=== PATIENT | male | born 1955 | race Caucasian/White ===

== ENCOUNTER 2024-10-12 12:36 | Outpatient (AMB) | payer MEDICARE, BC, SELFPAY ==
--- NOTE | 2024-10-12 13:13 | A.OFFVIS_ITS ---
Intake Visit Reasons: BPH Intake Note: New Patient presents for initial visit for BPH Urology Medications: Oxybutynin Blood Thinner: none PVR: Analytics Specialist Required: No Accompanied by: Self / Same As Patient Allergies No Known Allergies Allergy (Verified 10/12/24 14:14) Medication List - Last Reconciled 10/12/24 by LAURIE Palomares atorvastatin 80 mg PO DAILY diltiazem HCl CD 120 mg PO DAILY fesoterodine ER 4 mg PO DAILY 30 days levothyroxine 200 mcg PO DAILY lisinopril 40 mg PO DAILY HPI Comments Details: Jairo is a very pleasant 69-year-old male patient of Dr. Himanshu Dent. He has a past medical history of atopic dermatitis, BPH, GERD, hypertension, mixed hyperlipidemia, and hypothyroidism. In discussion with the patient today he reports having followed up with [facility] and had underwent a Prostate Rezum procedure November of 2022 however feels this made his urinary issues worse. He reports he continues with urinary urgency, urinary frequency, episodes of urinary incontinence and nocturia up to 4 times per night. He discusses being put on oxybutynin however given his longstanding history of hemorrhoids he stopped taking oxybutynin as he felt this caused him constipation. He otherwise denies hematuria, dysuria, foul smelling urine, changes to urinary stream, flank pain, fever, and or chills. In review of patient's chart it appears PSA 07/22 2.2. We discussed obtaining retroperitoneal ultrasound for further assessment evaluation however patient reports he has had previous imaging. In review of previous medical records I was unable to find previous imaging. We discussed at length potential causes of lower urinary tract symptoms patient is experiencing. We discussed bladder triggers/irritants. We discussed in office cystoscopy versus urodynamics for further assessment evaluation. We discussed further treatment options and risks and benefits of these treatment options. He otherwise denies any other issues or concerns at this time. [facility] Medical History Acquired trigger finger Atopic dermatitis Benign prostate hyperplasia Gastroesophageal reflux Essential hypertension Mixed hyperlipidemia Hypothyroidism Multiple benign melanocytic nevi Adenomatous colon polyp Onychomycosis Review of Systems Const All systems reviewed & are unremarkable except as noted in HPI and below Physical Exam Const General: cooperative, healthy appearing, comfortable, no acute distress, well developed, alert and awake Orientation/consciousness: patient oriented x3 Limitations: no limitations HEENT Head: Yes normal to inspection, Yes normocephalic and Yes atraumatic Ears: hearing grossly normal bilaterally Eyes General: appearance normal, both eyes and all related structures Neck Neck: Yes normal visual inspection and Yes trachea midline Chest Chest palpation & inspection: normal inspection of the chest Resp Effort & Inspection: normal respiratory effort and able to speak in complete sentences Cardio Rate: regular rate GI Inspection: Yes normal to inspection General: Yes no CVA tenderness Back/Spine/Pelvis Back: no CVA tenderness Skin General skin exam: no rashes or lesions noted Neuro General: patient oriented x3 Extrem General: Yes normal to inspection Psych Appearance: grossly normal and well kempt Mental Status: mental status grossly normal Speech and movement: Normal speech and movement present and Clear speech present Affect: normal affect Attitude: cooperative Thought process: Normal thought process present Thought content: Normal thought content present Insight: Fair insight present (Psych) Judgement: Fair judgement present (Psych) Office Procedures Post Void Residual Post Residual Void Post Void Residual (PVR): 36 [id number] Void Residual by ultrasound Results AMB Urinalysis, Automated UA Leukoctes 0 Pippa/uL Last Edit by Jenniffer Yanez on 10/12/24 13:53 UA Nitrite Last Edit by Jenniffer Yanez on 10/12/24 13:53 UA Urobilinogen 0.2 mg/dL Last Edit by Jenniffer Yanez on 10/12/24 13:53 UA Protein 0 mg/dL Last Edit by Jenniffer Yanez on 10/12/24 13:53 UA pH 6.0 Last Edit by Jenniffer Yanez on 10/12/24 13:53 UA Blood 0 Darwin/uL Last Edit by Jenniffer Yanez on 10/12/24 13:53 UA Specific Perkins 1.020 Last Edit by Jenniffer Yanez on 10/12/24 13:53 UA Ketone Last Edit by Jenniffer Yanez on 10/12/24 13:53 UA Bilirubin 0 mg/dL Last Edit by Jenniffer Yanez on 10/12/24 13:53 UA Glucose 0 mg/dL Last Edit by Jenniffer Yanez on 10/12/24 13:53 Results Reviewed Results Reviewed: Laboratory Last Values Urine pH (Auto) 6.0 10/12/24 13:51 Specific Perkins (Auto) 1.020 10/12/24 13:51 Urine Protein (Auto) 0 mg/dL 10/12/24 13:51 Glucose (UA)(Auto) 0 mg/dL 10/12/24 13:51 Urine Blood (Auto) 0 Darwin/uL 10/12/24 13:51 Urine Bilirubin (Auto) 0 mg/dL 10/12/24 13:51 Urine Urobilinogen (Auto) 0.2 mg/dL 10/12/24 13:51 Leukocyte Esterase (Auto) 0 Pippa/uL 10/12/24 13:51 Assessment & Plan Assessment & Plan (1) Lower urinary tract symptoms: Code(s): R39.9 - Unspecified symptoms and signs involving the genitourinary system Category: Medical (2) Urinary urgency: Code(s): R39.15 - Urgency of urination Category: Medical (3) Urinary frequency: Code(s): R35.0 - Frequency of micturition Category: Medical (4) Mixed stress and urge urinary incontinence: Code(s): N39.46 - Mixed incontinence Category: Medical Plan In office urinalysis results reviewed with the patient today; as noted above. PVR 0 mL. Start Fesoterodine as discussed and prescribed. Stop oxybutynin. We discussed at length potential causes of lower urinary tract symptoms patient is experiencing. We discussed importance of limiting fluids 2-3 hours prior to bed to decrease episodes of nocturia. Will schedule for next available in office cystoscopy for further assessment evaluation; or sooner with any issues, concerns, and or questions. 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 All questions were answered. Physical exam, labs, and imaging were discussed and reviewed in detail. As well as risks, benefits, and discussion of treatment choices. No major barriers to understanding were identified. The patient expressed understanding and agreement with the above treatment plan. The patient was made aware they should contact our office by phone for worsening of their current condition, the appearance of new symptoms, or with any questions or concerns. Compliance is encouraged with any medications and follow up testing that is ordered. It is a privilege to be allowed the opportunity to participate in? your urological care.? Again, if you have any questions or concerns If you have any questions or concerns please do not hesitate to contact me. The office is [phone]. This note is constructed using voice recognition software. While every effort has been made to ensure accuracy tdp displays analyst errors may have been included. Yours sincerely, LAURIE Palomares Coding Level of Care Code New Pt Level 4 (98915) Diagnoses Lower urinary tract symptoms R39.9 Urinary urgency R39.15 Urinary frequency R35.0 Mixed stress and urge urinary incontinence N39.46 CPT Codes Post Residual Void - PVR CPT Code: 48189-Qjpm Void Residual by ultrasound ([id number])
== END 2024-10-12 13:54 | disposition home or self-care (01) ==
PROVIDERS: PCP Family Medicine; Visit Provider Nurse Practitioner Family
DX: R39.9 Unspecified symptoms and signs involving the genitourinary system (principal); R35.0 Frequency of micturition; N39.46 Mixed incontinence
CPT/HCPCS: 99204

== ENCOUNTER → 2024-10-12 12:36 | Outpatient (BNVA) | payer MEDICARE, BC, SELFPAY | PROVIDERS: PCP Family Medicine; Visit Provider Nurse Practitioner Family | DX: N40.1 Benign prostatic hyperplasia with lower urinary tract symptoms (principal); R35.0 Frequency of micturition; N39.46 Mixed incontinence; N30.40 Irradiation cystitis without hematuria | CPT/HCPCS: 51798; 81003; 99202 ==

== ENCOUNTER 2024-12-14 10:46 | Outpatient (AMB) | payer MEDICARE, BC, SELFPAY ==
--- NOTE | 2024-12-14 10:48 | MHC.OFFVIS ---
Intake Visit Reasons: Cysto(Luts) Intake Note: Patient is present for Cystoscopy Urology Medication:FESOTERODINE Antibiotic Allergy:NONE Blood Thinner:NONE Lot:[id number] Exp:10/02/27 Affiliate Manager Required: No Allergies No Known Allergies Allergy (Verified 12/14/24 10:48) HPI Comments Details: Jairo is a pleasant male. He is a patient of Dr. Downs. 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 Has failed 2 medications. Trial of gemtessa 2 month follow-up Lower urinary tract symptoms Primary issue is urinary urgency and frequency Nocturia x4 with disrupted sleep Previously been treated with oxybutynin but cause constipation and prior history of hemorrhoids Trial of Toviaz with constipation Previous procedure includes Rezum 12/21 [facility] Medical History Acquired trigger finger Atopic dermatitis Benign prostate hyperplasia Gastroesophageal reflux Essential hypertension Mixed hyperlipidemia Hypothyroidism Multiple benign melanocytic nevi Adenomatous colon polyp Onychomycosis Review of Systems Const Denies chills and Denies fever(s) Card Reports no additional complaints and Denies syncope Resp Denies cough GI Denies abdominal pain and Denies heartburn Reports as per HPI and Denies change in libido Neuro Denies syncope Psych Denies change in libido Endo Denies change in libido Physical Exam Const General: cooperative, healthy appearing, comfortable and no acute distress Orientation/consciousness: patient oriented x3 HEENT Face and sinus: Yes normal facial exam Mouth: moist mucous membranes Neck Neck: Yes normal visual inspection, Yes full ROM and Yes trachea midline Chest Chest palpation & inspection: normal inspection of the chest Resp Effort & Inspection: normal respiratory effort, able to speak in complete sentences and no respiratory distress GI Inspection: Yes normal to inspection Back/Spine/Pelvis Cervical Spine: normal cervical lordosis Thoracic/Lumbar Spine: thoracic and lumbar spine normal to inspection Skin General skin exam: no rashes or lesions noted Neuro General: patient oriented x3, gait normal, tone normal and moves all extremities Extrem General: Yes normal to inspection and Yes capillary refill normal Office Procedures Cystoscopy Consent Discussed risk and benefit or proposed procedure with the patient. Information consent for procedure given to the patient. Discussed technical aspects, risks, benefits and alternatives in full. Addressed all of the patient's questions and concerns regarding the procedure. The patient demonstrated knowledge and understanding. They wish to proceed with this procedure. Preparation The patient was prepped in the usual manner. A conventions assistant was present and in the room. Genitalia was prepped with betadine solution in a sterile manner. Lidocaine Jelly 2% was placed into the urethra and 16Fr flexible Olympus cystoscope was inserted into the meatus after adequate lubrication. Procedure Cystoscopy performed using a disposable Urovue digital 16 Slovenian cystoscope. Meatus uncircumcised Urethra anterior and posterior urethra normal Prostatic Urethra partial TURP defect. Left lateral lobe impingement. Bladder examination with retroflexion of cystoscope Bladder Orifices normal shape and position Bladder Capacity median Trabeculations grade 1/2 Cellule Formation yes Diverticulum Formation posterior wall small Mucosal Erythema glomerulation Bladder Tumor - 19331-Hkckhphxil DISPOSABLE SCOPE URO-G FLEXIBLE SCOPE Procedure code (CPT) selection complete Office Meds lidocaine HCl 2 % mucosal jelly in applicator Performing Provider: Igor García MD Performing Location: [facility] Administered by: Igor García MD on 12/14/24 13:25 Dose Route Admin Location Dispensed Lot Number Expiration Date [employer] Faculty Member 10 mL intra-urethral 10 mL nitrofurantoin monohydrate/macrocrystals 100 mg capsule Performing Provider: Igor García MD Performing Location: [facility] Administered by: Igor García MD on 12/14/24 13:25 Dose Route Admin Location Dispensed Lot Number Expiration Date [employer] Faculty Member 100 mg PO 1 cap Results AMB Urinalysis, Automated UA Leukoctes 0 Pippa/uL Last Edit by SHARAD Cage on 12/14/24 11:09 UA Nitrite Negative Last Edit by SHARAD Cage on 12/14/24 11:09 UA Urobilinogen 0.2 mg/dL Last Edit by SHARAD Cage on 12/14/24 11:09 UA Protein 0 mg/dL Last Edit by SHARAD Cage on 12/14/24 11:09 UA pH 6.5 Last Edit by SHARAD Cage on 12/14/24 11:09 UA Blood 0 Darwin/uL Last Edit by SHARAD Cage on 12/14/24 11:09 UA Specific [place] 1.010 Last Edit by SHARAD Cage on 12/14/24 11:09 UA Ketone Negative Last Edit by SHARAD Cage on 12/14/24 11:09 UA Bilirubin 0 mg/dL Last Edit by SHARAD Cage on 12/14/24 11:09 UA Glucose 0 mg/dL Last Edit by SHARAD Cage on 12/14/24 11:09 Results Reviewed Results Reviewed: Laboratory Last Values Urine pH (Auto) 6.5 12/14/24 11:09 Specific [place] (Auto) 1.010 12/14/24 11:09 Urine Protein (Auto) 0 mg/dL 12/14/24 11:09 Glucose (UA)(Auto) 0 mg/dL 12/14/24 11:09 Urine Ketones (Auto) Negative 12/14/24 11:09 Urine Blood (Auto) 0 Darwin/uL 12/14/24 11:09 Urine Nitrite (Auto) Negative 12/14/24 11:09 Urine Bilirubin (Auto) 0 mg/dL 12/14/24 11:09 Urine Urobilinogen (Auto) 0.2 mg/dL 12/14/24 11:09 Leukocyte Esterase (Auto) 0 Pippa/uL 12/14/24 11:09 Assessment & Plan Assessment & Plan (1) Overactive bladder: Code(s): N32.81 - Overactive bladder Category: Medical Plan 2 month follow-up Celsa Vines Dr. Information provided Orders: Orders AMB Urinalysis Automated Today Z13.9 - Encounter for screening, unspecified AMB Cystoscopy Today R35.0 - Frequency of micturition Medications: New lidocaine HCl 2% 10 mL intra-urethral ONCE 10 mL 0RF R35.0 - Frequency of micturition vibegron 75 mg PO DAILY 30 days 30 tabs 1RF R35.0 - Frequency of micturition nitrofurantoin monohyd/m-cryst 100 mg 100 mg PO ONCE 1 cap 0RF R35.0 - Frequency of micturition Patient Instructions: Imaging studies, laboratory and physical exam results were discussed and reviewed in detail. No major barriers to patient understanding were identified. An opportunity to ask questions regarding the treatment plan was provided. All questions were answered. The patient expressed understanding and agreement with the above treatment plan. The patient is aware they should contact our office by phone for worsening of their current condition or the appearance of new urologic symptoms. Compliance is encouraged with any medications and followup testing that is ordered. It is a privilege to participate in the urologic care of your patient. If you have any questions or concerns regarding treatment for the above conditions, or other urologic issues, please do not hesitate to contact me. The office telephone contact is [phone]. This note is constructed using voice recognition software. While every effort has been made to ensure accuracy chief specialist leed errors may have been included. Yours sincerely, Dr Igor García MD, [facility] - Urology Providers of Expert, Compassionate Care for the Genitourinary System Coding Level of Care Code Est Pt Level 4 (32116) Diagnoses Overactive bladder N32.81 CPT Codes Cystoscopy - CPT: 36658-Yzieknasso ([id number])
--- OUTSIDE RECORDS SUMMARY | 2024-12-14 13:13 | XMS_ITS | Continuity of Care Document ---
Author Organization [facility], [place]oscopy, [facility] [place] [address] [place] [address] Assessment No assessment recorded. Plan of Treatment Reminders Order Date Submit Date Provider Last Modified By Organization Details Last Modified Time Details Appointments LAB Follow-Up 2024 07:00A [facility] Lab Not available Not available Not available Medical Managemen t 15 2024 09:00A M Meri Bond MD Not available Not available Not available LAB Follow-Up 2024 07:00A [facility] Lab Not available Not available Not available Wellness Visit 30 2024 08:30A M Meri Bond MD Not available Not available Not available Lab None recorded. Referral None recorded. Procedures None recorded. Surgeries None recorded. Imaging None recorded. Medication Orders None recorded. Patient TargetsNo targets recorded. Patient InstructionsNo instructions recorded. Reason for Referral None Reported. Procedures Surgical History Date Name Laterality Status Provider Name and Address Organization Details Recorded Time 5 Dolly - EGD completed Lenin Ablerto MD [address] [place] [address], [phone], [facility] [place]/12/2024 08:09:14 4 Dolly - Colonoscopy completed Lenin Alberto MD [address] [place] [address], [phone], [facility] [place] 06/05/2024 09:18:33 Imaging Results None recorded. Procedure Notes None recorded. Medical Equipment None Reported. Allergies No known drug allergies Medications Name Sig Start Date Stop Date Status Note LastModified by Organization Details LastModified Time diltiazem 30 mg tablet Take 1 tablet 3 times a day by oral route. active Not Available Not Available No t Available atorvastatin active Not Available Not Available Not Available aspirin active Not Available Not Avail able Not Available levothyroxine active Not Available Not Available Not Available simvastatin active Not Available Not A vailable Not Available lisinopril active Not Available Not Av ailable Not Available Vitals None Recorded Social History None recorded. Functional Status None recorded. Mental Status None recorded. Family History Nothing Reported. Medical History No medical history recorded. Past Encounters Encounter ID Performer Location Encounter Start Date Encounter Closed Date Diagnosis/Indication Diagnosis SNOMED-CT Code Diagnosis ICD10 Code Diagnosis Note [id number] Katherine Powers RN Endoscopy , [address] [phone] 12/12/2024 06:38:43 12/12/2024 12:00:45 Health Concerns Section Related Observation LastModified by Organization Detai ls LastModified Time None Recorded Concern Status LastModified by Organization Details LastModified Time None Recorded Payers Encounter Date Sequence Insurance Name Policy Number Policy Joyner Covered Member ID Joyner Member ID Guarantor Name 12/12/2024 2 [place] [employer] Selene Robertson [id number] Jairo Robertson 12/12/2024 1 [place] [employer] Jairo Robertson [id number] Jairo Robertson
--- OUTSIDE RECORDS SUMMARY | 2024-12-14 13:13 | XMS_ITS | Data Portability ---
Author Organization [facility], [facility] Address [address] [place] [address] Care Team Providers Care Banana Carrier Name Role Phone NEDRA CARLSON Primary Care Provider DONNELL PIERCE Urologist Assessment Encounter Date Assessment Date Assessment LastModified by Organization Details LastModified Time 08/19/2023 08/19/2023 We completed your Medicare Wellness exam today. This was an opportunity to assess your overall well being including your ability to care for yourself, your mobility, memory, mental health, as well as your safety. With advancing age, it is important to assign someone in your life as your Health Care Proxy (HCP). This person should know what is important to you and what your wishes are for medical procedures if you cannot communicate your wishes yourself (severe illness, unconsciousness ). We discussed having a completed Health Care Proxy form today. In addition, today we started a conversation about your End of Life wishes. These conversations will continue over the years. Please consider reading the book, Being Mortal by Andrzej West to help frame future conversations. We discussed the purpose of a MOLST form (Medical Orders for Life Sustaining Treatment) and completed this form if appropriate per your wishes. Vision and Hearing are senses that are critically important as we age. When impaired, they can contribute to memory loss, falls, and make it harder to drive, talk to family and friends, and engage in the world. Please get your vision checked yearly and your hearing checked when you start to notice hearing loss. We discussed approaches to lowering your risk of heart disease and stroke . Your blood pressure . Your cholesterol . We discussed cancer screening you may need as well as vaccines to prevent infections. Colon Cancer : Your risk of colon cancer is . Due for colorectal screening:.. if you are not planning to have a colonoscopy please screen with stool cards yearly. Prostate Cancer : PSA testing for ages 55-69 risks and benefits discussed . Aortic Aneurysm Screening : is indicated if you have a history of smoking and is due once at age 65. Influenza Vaccine : Flu shot yearly. Tetanus Vaccine : Every 10 years. Due: . The following vaccines are available from your pharmacy: Pneumonia Vaccine : PCV20: once after age 65. Shingles Vaccine : 2 shots after age 50. Covid Vaccine : Make sure you have received the most up to date covid vaccine. Your personal health goal for the year is: [email or web address] Not available 08/19/2023 10:13:12 08/21/2024 08/21/2024 We completed your Medicare Wellness exam today. This was an opportunity to assess your overall well being including your ability to care for yourself, your mobility, memory, mental health, as well as your safety. With advancing age, it is important to assign someone in your life as your Health Care Proxy (HCP). This person should know what is important to you and what your wishes are for medical procedures if you cannot communicate your wishes yourself (severe illness, unconsciousness ). We discussed having a completed Health Care Proxy form today. In addition, today we started a conversation about your End of Life wishes. These conversations will continue over the years. Please consider reading the book, Being Mortal by Andrzej West to help frame future conversations. We discussed the purpose of a MOLST form (Medical Orders for Life Sustaining Treatment) and completed this form if appropriate per your wishes. Vision and Hearing are senses that are critically important as we age. When impaired, they can contribute to memory loss, falls, and make it harder to drive, talk to family and friends, and engage in the world. Please get your vision checked yearly and your hearing checked when you start to notice hearing loss. We discussed approaches to lowering your risk of heart disease and stroke . Your blood pressure is at goal. Your cholesterol is at goal. We discussed cancer screening you may need as well as vaccines to prevent infections. Colon Cancer : Your risk of colon cancer is higher than average due to personal history of colon polyps. Due for colorectal screenin. If you are not planning to have a colonoscopy please screen with stool cards yearly. Breast Cancer : Breast Cancer Screening (mammography). Next mammogram due: . Cervical Cancer Screening (pap test). Next pap due: . Prostate Cancer : PSA testing for ages 55-69 risks and benefits discussed test ordered. By urology Influenza Vaccine : Flu shot yearly. Tetanus Vaccine : Every 10 years. Due: 2028. The following vaccines are available from your pharmacy: Pneumonia Vaccine : PCV20: once after age 65. Shingles Vaccine : 2 shots after age 50. Covid Vaccine : Make sure you have received the most up to date covid vaccine. Your personal health goal for the year is: [email or web address] Not available 08/21/2024 20:05:57 Plan of Treatment Reminders Order Date Submit Date Provider Last Modified By Organization Details Last Modified Time Details Appointments LAB Follow-Up 2024 07:00A M [facility] Lab Not available Not available Not available Medical Managemen t 15 2024 09:00A M Meri Bond MD Not available Not available Not available LAB Follow-Up 2024 07:00A M [facility] Lab Not available Not available Not available Wellness Visit 30 2024 08:30A M Meri Bond MD Not available Not available Not available Lab BMP, serum or plasma 2021 023 [facility], [address] [place] [address], [id number], 04/07/2023 15:05:04 lipid panel, serum 2021 023 [facility], [address] [place] [address], [id number], 04/07/2023 15:05:05 TSH, serum or plasma 2021 023 [facility], [address] [place] [address], [id number], 04/07/2023 11:11:19 BMP, serum or plasma 2023 024 [facility], [address] [place] [address], [id number], 01/03/2024 12:12:45 Referral gastroent erologist referral - esophagea l obstructi on due to food impaction in May continues to have issues but not to this extent, persisten t x many years. 2023 024 AMAURY Ward MD Gastro, [address] [place], [id number], 10/25/2024 14:23:23 urologist referral - BPH did aquablati on and still with symptoms 2023 024 AMAURY García MD, [address] [place] [address] , [address], [id number], 10/15/2024 23:58:41 Procedures None recorded. Surgeries None recorded. Imaging None recorded. Medication Orders None recorded. Patient TargetsNo targets recorded. Patient Instructions Encounter Date Encounter Id Patient Instructions Last Modified By Organization Details Last Modified Time 11/16/2022 [id number] -Med management with fasting labs in March -Wellness visit in July when you return Not available 11/16/2022 08:40:02 08/19/2023 [id number] preventing falls: care instructions [email or web address] Not available 08/19/2023 15:59:18 hearing loss: care instructions [email or web address] Not available 08/19/2023 15:59:18 advance directives: care instructions [email or web address] Not available 08/19/2023 15:59:19 well visit, over 65: care instructions [email or web address] Not available 08/19/2023 15:59:18 After a discussion of treatment and medication options, which included consideration of the best practices in medicine, a medical plan was provided. The patient's opinions and concerns were included in this treatment plan and goal. After a discussion of treatment and medication options, which included consideration of the best practices in medicine, a medical plan was provided. The patient's opinions and concerns were included in this treatment plan and goal. 1. TSH - in range with 200 mcg dose levothyroxine, will continue this dose * Maintain 1200 mg of calcium from food sources daily, * Take vitamin D 1358-5134 units daily to help absorption of calcium into your bones * Use sunblock consistently * Review the website: [employer] to get more information on the Mediterranean diet - a heart healthy eating plan * Immunizations up to date; COVID vaccine booster recommended. Prevnar 20 at the pharmacy. * The current guidelines from the [place] [employer] is moderate aerobic physical activity about 30 minutes for 5 days of the week. Walking at a moderately fast pace, as tolerated. Try to build muscle mass. This will help maintain bone strength and support your joints. * Pt has a hx of precancerous polyps and needs repeat colonoscopy every 5 years. Colonoscopy due 2025. * Health care proxy discussed and no changes. * MOLST form discussed. completed today. * Wellness Visit in 1 year with LS * See your dentist at least twice a year. * Get your vision checked at least once every 2 years. * Discussed labs * derm yearly - [facility] HTN - at goal of less than 130/80 per the AHA guidelines. Continue meds and f/u in 6 mos and see LS - PCP. Discussed labs, sugar and kidney function and electrolytes normal. Discussed cholesterol. Your LDL (bad type of cholesterol) is at goal. Continue your cholesterol lowering medication daily. Continue low salt diet of less than 1500 mg of sodium per day. The [place] [employer] (AHA) recommends 30 minutes of moderate physical activity 5 days a week. A Mediterranean type of diet and a plant based diet is recommended, review the website: [employer]. [email or web address] Not available 08/19/2023 19:38:55 01/03/2024 [id number] After a discussion of treatment and medication options, which included consideration of the best practices in medicine, a medical plan was provided. The patient's opinions and concerns were included in this treatment plan and goal. HTN - at goal of less than 130/80 per the AHA guidelines. Continue meds and f/u in 6 mos. Due for labs today. Continue low salt diet of less than 1500 mg of sodium per day. The [place] [employer] (AHA) recommends 30 minutes of moderate physical activity 5 days a week. A Mediterranean type of diet and a plant based diet is recommended, review the website: [employer]. 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 melo Not available 08/21/2024 14:17:54 Reason for Referral Urologist Referral for Benig n prostatic hyperplasia BPH did aquablation and still with symptoms Referring Physician: Meri Bond, Family Medicine, Encounter Date: 08/21/2024 Line Erector Apprentice Referral for Esophageal dysphagia esophageal obstruction due to food impaction in May continues to have issues but not to this extent, persistent x many years. Referring Physician: Mrei Bond, Family Medicine, Encounter Date: 08/21/2024 Results Created Date Observation Date Name Description Value Unit Range Abnormal Flag Note LastModifiedBy Organization Detail LastModifiedTime 11/02/20 22 11/02/2022 LIPID PANEL cholesterol 210 mg/dL <200 mg/dl Pawan able 200-2 39 mg/dl Borde rline High >240 mg/dl High Not Available [address], [address], 11/02/2022 14:23:21 11/02/20 22 11/02/2022 LIPID PANEL triglyceride s 125 mg/dL <150 mg/dL Vivien l 150-1 99 mg/dL Borde rline High 200-4 99 mg/dL High >500 mg/dL Very High Not Available [address], [address], 11/02/2022 14:23:21 11/02/20 22 11/02/2022 LIPID PANEL direct HDL 66 mg/dL <40 mg/dl - Major Risk for CHD >60 mg/dl - Negat adelita Risk for CHD Not Available [address], [address], 11/02/2022 14:23:21 11/02/20 22 11/02/2022 LDL - CALCU LATED LDL - calculated 119.0 RISK CATEG ORY LDL GOAL _ CHD or CHD Risk Equiv alent s <100 mg/dl (10-y ear risk >20%) 2+ Risk Facto rs <130 mg/dl (10-y ear risk <= 20%) 0-1 Risk Facto r??? <160 mg/dl ??? Almos t all peopl e with 0-1 risk facto r have a 10 year risk <10%, thus 10 year risk asses ment in peopl e with 0-1 risk facto r is not farrah lam. Not Available [address], [address], 11/02/2022 14:23:22 11/02/20 22 11/04/2022 BASIC METAB OLIC PANEL glucose 97 mg/dL 70-100 Not Available [address], [address], 11/04/2022 11:15:25 11/02/20 22 11/04/2022 BASIC METAB OLIC PANEL BUN 24 mg/dL 7-18 high Not Available [address], [address], 11/04/2022 11:15:25 11/02/20 22 11/04/2022 BASIC METAB OLIC PANEL creatinine 1.0 mg/dL 0.8-1. 3 Not Available [address], [address], 11/04/2022 11:15:25 11/02/20 22 11/04/2022 BASIC METAB OLIC PANEL B/C 24.0 ratio Not Available [address], [address], 11/04/2022 11:15:25 11/02/20 22 11/04/2022 BASIC METAB OLIC PANEL GFR >=60ML /MIN mL/mi n normal >=60m L/min - Vivien l or midly reduc ed <60mL /min- Decre ased kidne y funct ion <15mL /min - Kidne y failu re [facility] calcu lates estim ated Glome rular Filtr ation Rate (eGFR ) using the Chron ic Kidne y Disea se Epide miolo gy Colla borat ion (CKD- EPI) Equat ion (Chano r et. al 2020) as recom mike d by the Natio nal Kidne y Found ation . eGFR is based on age, serum creat inine , and sex. CKD-E PI does not calcu late eGFR by race, does not apply to child kenny (age <18 years ), and shoul d not be used in pregn alix. Not Available [address], [address], 11/04/2022 11:15:25 11/02/20 22 11/04/2022 BASIC METAB OLIC PANEL sodium 144 mmol/ L 136-14 5 Not Available [address], [address], 11/04/2022 11:15:25 11/02/20 22 11/04/2022 BASIC METAB OLIC PANEL potassium 4.4 mmol/ L 3.5-5. 1 Not Available [address], [address], 11/04/2022 11:15:25 11/02/20 22 11/04/2022 BASIC METAB OLIC PANEL chloride 104 mmol/ L 96-107 Not Available [address], [address], 11/04/2022 11:15:25 11/02/20 22 11/04/2022 BASIC METAB OLIC PANEL anion gap 11.0 5.0-15 .0 Not Available [address], [address], 11/04/2022 11:15:25 11/02/20 22 11/04/2022 BASIC METAB OLIC PANEL CO2 29 mmol/ L 21-32 Not Available [address], [address], 11/04/2022 11:15:25 11/02/20 22 11/04/2022 BASIC METAB OLIC PANEL calcium 9.4 mg/dL 8.5-10 .3 Not Available [facility] [address] [facility], [place], [address], 11/04/2022 11:15:25 11/30/19 23 11/30/2022 POCT URINE DIPST ICK color Yellow Not Available [facility] [address] [place], [address], 11/30/2022 10:10:43 11/30/19 23 11/30/2022 POCT URINE DIPST ICK turbidity Clear Not Available [facility] [address] [place], [address], 11/30/2022 10:10:43 11/30/19 23 11/30/2022 POCT URINE DIPST ICK glucose, poct Trace negati ve abnormal Not Available [facility] [address] [place], [address], 11/30/2022 10:10:43 11/30/19 23 11/30/2022 POCT URINE DIPST ICK ketone, poct Negati ve negati ve Not Available [facility] [address] [place], [address], 11/30/2022 10:10:43 11/30/19 23 11/30/2022 POCT URINE DIPST ICK occult blood, poct Trace Intact negati ve abnormal Not Available [facility] [address] [place], [address], 11/30/2022 10:10:43 11/30/19 23 11/30/2022 POCT URINE DIPST ICK specific gravity, poct 1.020 1.001- 1.030 Not Available [facility] [address] [place], [address], 11/30/2022 10:10:43 11/30/19 23 11/30/2022 POCT URINE DIPST ICK albumin, poct 1+ negati ve abnormal Not Available [facility] [address] [place], [address], 11/30/2022 10:10:43 11/30/19 23 11/30/2022 POCT URINE DIPST ICK bili Negati ve negati ve Not Available [facility] [address] [place], [address], 11/30/2022 10:10:43 11/30/19 23 11/30/2022 POCT URINE DIPST ICK urobilinogen 1.0 <1.0 high Not Available [facility] [address] [place], [address], 11/30/2022 10:10:43 11/30/19 23 11/30/2022 POCT URINE DIPST ICK nitrite, poct Positi ve negati ve abnormal Not Available [facility] [address] [place], [address], 11/30/2022 10:10:43 11/30/19 23 11/30/2022 POCT URINE DIPST ICK pH, poct 7.5 5.0-8. 0 Not Available [facility] [address] [place], [address], 11/30/2022 10:10:43 11/30/19 23 11/30/2022 POCT URINE DIPST ICK WBC screen, poct Trace negati ve abnormal Not Available [facility] [address] [place], [address], 11/30/2022 10:10:43 11/30/19 23 11/30/2022 URINE CULTU RE special requests None Not Available [facility] [address] [place], [address], 12/02/2022 07:41:31 11/30/19 23 12/02/2022 URINE CULTU RE urine culture NO GROWTH 48HRS Not Available [facility] [address] [place], [address], 12/02/2022 07:41:31 04/07/20 23 04/07/2023 TSH TSH 0.17 uIU/m L 0.50-6 .00 low The Ameri can Colle ge of Endoc rinol ogy and Ameri can Thyro id Assoc iatio n recom mend goal TSH value s betwe en 0.4-4 .0 mIU/m L. Not Available [address], [address], 04/07/2023 11:11:19 04/07/2004/07/2023 BASIC METAB OLIC PANEL glucose 101 mg/dL 70-100 high Not Available [address], [address], 04/07/2023 15:05:04 04/07/20 23 04/07/2023 BASIC METAB OLIC PANEL BUN 26 mg/dL 7-18 high Not Available [address], [address], 04/07/2023 15:05:04 04/07/20 23 04/07/2023 BASIC METAB OLIC PANEL creatinine 0.9 mg/dL 0.8-1. 3 Not Available [address], [address], 04/07/2023 15:05:04 04/07/20 23 04/07/2023 BASIC METAB OLIC PANEL B/C 28.9 ratio Not Available [address], [address], 04/07/2023 15:05:04 04/07/20 23 04/07/2023 BASIC METAB OLIC PANEL GFR >=60ML /MIN mL/mi n normal >=60m L/min - Vivien l or midly reduc ed <60mL /min- Decre ased kidne y funct ion <15mL /min - Kidne y failu re [facility] calcu lates estim ated Glome rular Filtr ation Rate (eGFR ) using the Chron ic Kidne y Disea se Epide miolo gy Colla borat ion (CKD- EPI) Equat ion (Chano r et. al 2020) as recom mike d by the Natio nal Kidne y Found ation . eGFR is based on age, serum creat inine , and sex. CKD-E PI does not calcu late eGFR by race, does not apply to child kenny (age <18 years ), and shoul d not be used in pregn alix. Not Available [address], [address], 04/07/2023 15:05:04 04/07/20 23 04/07/2023 BASIC METAB OLIC PANEL sodium 144 mmol/ L 136-14 5 Not Available [address], [address], 04/07/2023 15:05:04 04/07/20 23 04/07/2023 BASIC METAB OLIC PANEL potassium 4.6 mmol/ L 3.5-5. 1 Not Available [address], [address], 04/07/2023 15:05:04 04/07/20 23 04/07/2023 BASIC METAB OLIC PANEL chloride 105 mmol/ L 96-107 Not Available [address], [address], 04/07/2023 15:05:04 04/07/20 23 04/07/2023 BASIC METAB OLIC PANEL anion gap 10.2 5.0-15 .0 Not Available [address], [address], 04/07/2023 15:05:04 04/07/20 23 04/07/2023 BASIC METAB OLIC PANEL CO2 29 mmol/ L 21-32 Not Available [address], [address], 04/07/2023 15:05:04 04/07/20 23 04/07/2023 BASIC METAB OLIC PANEL calcium 9.1 mg/dL 8.5-10 .3 Not Available [address], [address], 04/07/2023 15:05:04 04/07/20 23 04/07/2023 LIPID PANEL cholesterol 201 mg/dL <200 mg/dl Pawan able 200-2 39 mg/dl Borde rline High >240 mg/dl High Not Available [address], [address], 04/07/2023 15:05:05 04/07/20 23 04/07/2023 LIPID PANEL triglyceride s 92 mg/dL <150 mg/dL Vivien l 150-1 99 mg/dL Borde rline High 200-4 99 mg/dL High >500 mg/dL Very High Not Available [address], [address], 04/07/2023 15:05:05 04/07/20 23 04/07/2023 LIPID PANEL direct HDL 70 mg/dL <40 mg/dl - Major Risk for CHD >60 mg/dl - Negat adelita Risk for CHD Not Available [address], [address], 04/07/2023 15:05:05 04/07/20 23 04/07/2023 LDL - CALCU LATED LDL - calculated 112.6 RISK CATEG ORY LDL GOAL _ CHD or CHD Risk Equiv alent s <100 mg/dl (10-y ear risk >20%) 2+ Risk Facto rs <130 mg/dl (10-y ear risk <= 20%) 0-1 Risk Facto r??? <160 mg/dl ??? Almos t all peopl e with 0-1 risk facto r have a 10 year risk <10%, thus 10 year risk asses ment in peopl e with 0-1 risk facto r is not necritesh lam. Not Available [address], [address], 04/07/2023 15:05:06 04/29/20 23 04/29/2023 TSH TSH 0.18 uIU/m L 0.50-6 .00 low CWP=C onsis tent with previ ous. The Ameri can Colle ge of Endoc rinol ogy and Ameri can Thyro id Assoc iatio n recom mend goal TSH value s betwe en 0.4-4 .0 mIU/m L. Not Available [address], [address], 04/29/2023 11:41:28 06/29/20 23 06/30/2023 TSH TSH 0.51 uIU/m L 0.50-6 .00 The Ameri can Colle ge of Endoc rinol ogy and Ameri can Thyro id Assoc iatio n recom mend goal TSH value s betwe en 0.4-4 .0 mIU/m L. Not Available [address], [address], 06/30/2023 12:06:58 06/29/20 23 06/30/2023 PSA PSA 1.41 NG/mL 0.00-4 .00 Not Available [address], [address], 06/30/2023 12:50:02 07/01/20 23 07/01/2023 BASIC METAB OLIC PANEL glucose 89 mg/dL 70-100 Not Available [address], [address], 07/01/2023 10:47:34 07/01/20 23 07/01/2023 BASIC METAB OLIC PANEL BUN 27 mg/dL 7-18 high Not Available [address], [address], 07/01/2023 10:47:34 07/01/20 23 07/01/2023 BASIC METAB OLIC PANEL creatinine 0.9 mg/dL 0.8-1. 3 Not Available [address], [address], 07/01/2023 10:47:34 07/01/20 23 07/01/2023 BASIC METAB OLIC PANEL B/C 30.0 ratio Not Available [address], [address], 07/01/2023 10:47:34 07/01/20 23 07/01/2023 BASIC METAB OLIC PANEL GFR >=60ML /MIN mL/mi n normal >=60m L/min - Vivien l or midly reduc ed <60mL /min- Decre ased kidne y funct ion <15mL /min - Kidne y failu re [facility] calcu lates estim ated Glome rular Filtr ation Rate (eGFR ) using the Chron ic Kidne y Disea se Epide miolo gy Colla borat ion (CKD- EPI) Equat ion (Chano r et. al 2020) as recom mike d by the Natio nal Kidne y Found ation . eGFR is based on age, serum creat inine , and sex. CKD-E PI does not calcu late eGFR by race, does not apply to child kenny (age <18 years ), and shoul d not be used in pregn alix. Not Available [address], [address], 07/01/2023 10:47:34 07/01/20 23 07/01/2023 BASIC METAB OLIC PANEL sodium 143 mmol/ L 136-14 5 Not Available [address], [address], 07/01/2023 10:47:34 07/01/20 23 07/01/2023 BASIC METAB OLIC PANEL potassium 4.5 mmol/ L 3.5-5. 1 Not Available [address], [address], 07/01/2023 10:47:34 08/03/07/01/2023 BASIC METAB OLIC PANEL chloride 106 mmol/ L 96-107 Not Available [address], [address], 07/01/2023 10:47:34 07/01/20 23 07/01/2023 BASIC METAB OLIC PANEL anion gap 6.0 5.0-15 .0 Not Available [address], [address], 07/01/2023 10:47:34 07/01/20 23 07/01/2023 BASIC METAB OLIC PANEL CO2 31 mmol/ L 21-32 Not Available [address], [address], 07/01/2023 10:47:34 07/01/20 23 07/01/2023 BASIC METAB OLIC PANEL calcium 9.1 mg/dL 8.5-10 .3 Not Available [address], [address], 07/01/2023 10:47:34 07/01/20 23 07/01/2023 LIPID PANEL cholesterol 229 mg/dL <200 mg/dl Pawan able 200-2 39 mg/dl Borde rline High >240 mg/dl High Not Available [address], [address], 07/01/2023 10:47:35 07/01/20 23 07/01/2023 LIPID PANEL triglyceride s 84 mg/dL <150 mg/dL Vivien l 150-1 99 mg/dL Borde rline High 200-4 99 mg/dL High >500 mg/dL Very High Not Available [address], [address], 07/01/2023 10:47:35 07/01/20 23 07/01/2023 LIPID PANEL direct HDL 71 mg/dL <40 mg/dl - Major Risk for CHD >60 mg/dl - Negat adelita Risk for CHD Not Available [address], [address], 07/01/2023 10:47:35 07/01/20 23 07/01/2023 DIREC T LDL direct LDL 123 mg/dL RISK CATEG ORY LDL GOAL _ CHD or CHD Risk Equiv alent s <100 mg/dl (10-y ear risk >20%) 2+ Risk Facto rs <130 mg/dl (10-y ear risk <= 20%) 0-1 Risk Facto r??? <160 mg/dl ??? Almos t all peopl e with 0-1 risk facto r have a 10 year risk <10%, thus 10 year risk asses ment in peopl e with 0-1 risk facto r is not farrah lam. Not Available [address], [address], 07/01/2023 10:47:36 01/03/20 24 01/03/2024 BASIC METAB OLIC PANEL glucose 69 mg/dL 70-100 low Not Available [address], [address], 01/03/2024 12:12:45 01/03/20 24 01/03/2024 BASIC METAB OLIC PANEL BUN 28 mg/dL 7-18 high Not Available [address], [address], 01/03/2024 12:12:45 01/03/20 24 01/03/2024 BASIC METAB OLIC PANEL creatinine 1.0 mg/dL 0.8-1. 3 Not Available [address], [address], 01/03/2024 12:12:45 01/03/20 24 01/03/2024 BASIC METAB OLIC PANEL B/C 28.0 ratio Not Available [address], [address], 01/03/2024 12:12:45 01/03/20 24 01/03/2024 BASIC METAB OLIC PANEL GFR >=60ML /MIN mL/mi n normal >=60m L/min - Vivien l or midly reduc ed <60mL /min- Decre ased kidne y funct ion <15mL /min - Kidne y failu re [facility] calcu lates estim ated Glome rular Filtr ation Rate (eGFR ) using the Chron ic Kidne y Disea se Epide miolo gy Colla borat ion (CKD- EPI) Equat ion (Chano r et. al 2020) as recom mike d by the Natio nal Kidne y Found ation . eGFR is based on age, serum creat inine , and sex. CKD-E PI does not calcu late eGFR by race, does not apply to child kenny (age <18 years ), and shoul d not be used in pregn alix. Not Available [address], [address], 01/03/2024 12:12:45 01/03/20 24 01/03/2024 BASIC METAB OLIC PANEL sodium 144 mmol/ L 136-14 5 Not Available [address], [address], 01/03/2024 12:12:45 01/03/20 24 01/03/2024 BASIC METAB OLIC PANEL potassium 4.4 mmol/ L 3.5-5. 1 Not Available [address], [address], 01/03/2024 12:12:45 01/03/20 24 01/03/2024 BASIC METAB OLIC PANEL chloride 106 mmol/ L 96-107 Not Available [address], [address], 01/03/2024 12:12:45 01/03/20 24 01/03/2024 BASIC METAB OLIC PANEL anion gap 9.2 5.0-15 .0 Not Available [address], [address], 01/03/2024 12:12:45 01/03/20 24 01/03/2024 BASIC METAB OLIC PANEL CO2 29 mmol/ L 21-32 Not Available [address], [address], 01/03/2024 12:12:45 01/03/20 24 01/03/2024 BASIC METAB OLIC PANEL calcium 9.0 mg/dL 8.5-10 .3 Not Available [address], [address], 01/03/2024 12:12:45 07/12/20 24 07/12/2024 BASIC METAB OLIC PANEL glucose 75 mg/dL 70-100 Not Available [address], [address], 07/12/2024 11:01:05 07/12/20 24 07/12/2024 BASIC METAB OLIC PANEL BUN 16 mg/dL 7-18 Not Available [address], [address], 07/12/2024 11:01:05 07/12/20 24 07/12/2024 BASIC METAB OLIC PANEL creatinine 0.9 mg/dL 0.8-1. 3 Not Available [address], [address], 07/12/2024 11:01:05 07/12/20 24 07/12/2024 BASIC METAB OLIC PANEL B/C 17.8 ratio Not Available [address], [address], 07/12/2024 11:01:05 07/12/20 24 07/12/2024 BASIC METAB OLIC PANEL GFR >=60ML /MIN mL/mi n normal >=60m L/min - Vivien l or midly reduc ed <60mL /min- Decre ased kidne y funct ion <15mL /min - Kidne y failu re [facility] calcu lates estim ated Glome rular Filtr ation Rate (eGFR ) using the Chron ic Kidne y Disea se Epide miolo gy Colla borat ion (CKD- EPI) Equat ion (Chano ceballos et. al 2020) as recom mike d by the [facility] . eGFR is based on age, serum creat inine , and sex. CKD-E PI does not calcu late eGFR by race, does not apply to child kenny (age <18 years ), and shoul d not be used in pregn alix. Not Available [address], [address], 07/12/2024 11:01:05 07/12/20 24 07/12/2024 BASIC METAB OLIC PANEL sodium 143 mmol/ L 136-14 5 Not Available [address], [address], 07/12/2024 11:01:05 07/12/20 24 07/12/2024 BASIC METAB OLIC PANEL potassium 4.5 mmol/ L 3.5-5. 1 Not Available [address], [address], 07/12/2024 11:01:05 07/12/20 24 07/12/2024 BASIC METAB OLIC PANEL chloride 104 mmol/ L 96-107 Not Available [address], [address], 07/12/2024 11:01:05 07/12/20 24 07/12/2024 BASIC METAB OLIC PANEL anion gap 8.2 5.0-15 .0 Not Available [address], [address], 07/12/2024 11:01:05 07/12/20 24 07/12/2024 BASIC METAB OLIC PANEL CO2 31 mmol/ L 21-32 Not Available [address], [address], 07/12/2024 11:01:05 07/12/20 24 07/12/2024 BASIC METAB OLIC PANEL calcium 9.6 mg/dL 8.5-10 .3 Not Available [address], [address], 07/12/2024 11:01:05 07/12/20 24 07/12/2024 LIPID PANEL cholesterol 214 mg/dL <200 mg/dl Pawan able 200-2 39 mg/dl Borde rline High >240 mg/dl High Not Available [address], [address], 07/12/2024 11:01:06 07/12/20 24 07/12/2024 LIPID PANEL triglyceride s 150 mg/dL <150 mg/dL Vivien l 150-1 99 mg/dL Borde rline High 200-4 99 mg/dL High >500 mg/dL Very High Not Available [address], [address], 07/12/2024 11:01:06 07/12/20 24 07/12/2024 LIPID PANEL direct HDL 62 mg/dL <40 mg/dl - Major Risk for CHD >60 mg/dl - Negat adelita Risk for CHD Not Available [address], [address], 07/12/2024 11:01:06 07/12/20 24 07/12/2024 DIREC T LDL direct LDL 111 mg/dL RISK CATEG ORY LDL GOAL _ CHD or CHD Risk Equiv alent s <100 mg/dl (10-y ear risk >20%) 2+ Risk Facto rs <130 mg/dl (10-y ear risk <= 20%) 0-1 Risk Facto r??? <160 mg/dl ??? Almos t all peopl e with 0-1 risk facto r have a 10 year risk <10%, thus 10 year risk asses ment in peopl e with 0-1 risk facto r is not neces genaro. Not Available [address], [address], 07/12/2024 11:01:07 07/12/20 24 07/12/2024 PSA PSA 2.17 NG/mL 0.00-4 .00 Not Available [address], [address], 07/12/2024 11:28:12 07/12/20 24 07/12/2024 TSH TSH 1.24 uIU/m L 0.50-6 .00 The Ameri can Colle ge of Endoc rinol ogy and Ameri can Thyro id Assoc iatio n recom mend goal TSH value s betwe en 0.4-4 .0 mIU/m L. Not Available [address], [address], 07/12/2024 11:46:57 08/15/20 24 08/15/2024 BASIC METAB OLIC PANEL glucose 97 mg/dL 70-100 Not Available [address], [address], 08/15/2024 09:29:58 08/15/20 24 08/15/2024 BASIC METAB OLIC PANEL BUN 15 mg/dL 7-18 Not Available [address], [address], 08/15/2024 09:29:58 08/15/20 24 08/15/2024 BASIC METAB OLIC PANEL creatinine 1.0 mg/dL 0.8-1. 3 Not Available [address], [address], 08/15/2024 09:29:58 08/15/20 24 08/15/2024 BASIC METAB OLIC PANEL B/C 15.0 ratio Not Available [address], [address], 08/15/2024 09:29:58 08/15/20 24 08/15/2024 BASIC METAB OLIC PANEL GFR >=60ML /MIN mL/mi n normal >=60m L/min - Vivien l or midly reduc ed <60mL /min- Decre ased kidne y funct ion <15mL /min - Kidne y failu re [facility] calcu lates estim ated Glome rular Filtr ation Rate (eGFR ) using the Chron ic Kidne y Disea se Epide miolo gy Colla borat ion (CKD- EPI) Equat ion (Chano r et. al 2020) as recom mike d by the Natio nal Kidne y Found ation . eGFR is based on age, serum creat inine , and sex. CKD-E PI does not calcu late eGFR by race, does not apply to child kenny (age <18 years ), and shoul d not be used in pregn alix. Not Available [address], [address], 08/15/2024 09:29:58 08/15/20 24 08/15/2024 BASIC METAB OLIC PANEL sodium 139 mmol/ L 136-14 5 Not Available [address], [address], 08/15/2024 09:29:58 08/15/20 24 08/15/2024 BASIC METAB OLIC PANEL potassium 4.3 mmol/ L 3.5-5. 1 Not Available [address], [address], 08/15/2024 09:29:58 08/15/20 24 08/15/2024 BASIC METAB OLIC PANEL chloride 102 mmol/ L 96-107 Not Available [address], [address], 08/15/2024 09:29:58 08/15/20 24 08/15/2024 BASIC METAB OLIC PANEL anion gap 4.8 5.0-15 .0 low Not Available [address], [address], 08/15/2024 09:29:58 08/15/20 24 08/15/2024 BASIC METAB OLIC PANEL CO2 32 mmol/ L 21-32 Not Available [address], [address], 08/15/2024 09:29:58 08/15/20 24 08/15/2024 BASIC METAB OLIC PANEL calcium 9.1 mg/dL 8.5-10 .3 Not Available [address], [address], 08/15/2024 09:29:58 08/15/20 24 08/15/2024 LIPID PANEL cholesterol 223 mg/dL <200 mg/dl Pawan able 200-2 39 mg/dl Borde rline High >240 mg/dl High Not Available [address], [address], 08/15/2024 09:29:58 08/15/20 24 08/15/2024 LIPID PANEL triglyceride s 131 mg/dL <150 mg/dL Vivien l 150-1 99 mg/dL Borde rline High 200-4 99 mg/dL High >500 mg/dL Very High Not Available [address], [address], 08/15/2024 09:29:58 08/15/20 24 08/15/2024 LIPID PANEL direct HDL 74 mg/dL <40 mg/dl - Major Risk for CHD >60 mg/dl - Negat adelita Risk for CHD Not Available [address], [address], 08/15/2024 09:29:58 08/15/20 24 08/15/2024 LDL - CALCU LATED LDL - calculated 123 RISK CATEG ORY LDL GOAL _ CHD or CHD Risk Equiv alent s <100 mg/dl (10-y ear risk >20%) 2+ Risk Facto rs <130 mg/dl (10-y ear risk <= 20%) 0-1 Risk Facto r??? <160 mg/dl ??? Almos t all peopl e with 0-1 risk facto r have a 10 year risk <10%, thus 10 year risk asses ment in peopl e with 0-1 risk facto r is not necritesh alleny. Not Available [address], [address], 08/15/2024 09:29:59 08/15/20 24 08/16/2024 TSH TSH 0.91 uIU/m L 0.50-6 .00 The Ameri can Colle ge of Endoc rinol ogy and Ameri can Thyro id Assoc iatio n recom mend goal TSH value s betwe en 0.4-4 .0 mIU/m L. Not Available [address], [address], 08/16/2024 14:01:04 Result Notes None recorded. Problems Name Problem SNOMED Code Status Onset Date Resolution Date Notes Provider Name and Address Organization Details Recorded Time Mixed hyperlipid emia 996402826 Active Not Available [facility] 3 08:42:29 Atopic dermatitis 19696881 Active Not Available [facility] 3 08:42:29 Disorder of lipid metabolism 781570188 Completed 10/20/2013 Mary Beth Bocanegra M.D. [address] [place] [address], [phone] , [facility] 3 09:19:02 Measuremen t finding 744375355 Completed 200810/18/2013 Not Available [facility] 3 02:03:26 Essential hypertensi on 79103884 Active Not Available [facility] 3 08:42:30 Gastroesop hageal reflux disease 893570456 Active Not Available [facility] 3 08:42:29 Increased frequency of urination 871124396 Completed 10/18/2013 Not Available [facility] 3 02:02:52 Benign essential hypertensi on 0713181 Completed 10/20/2013 Mary Beth Bocanegra M.D. [address] [place] [address], [phone] , [facility] [place] 3 09:19:02 Hypothyroi dism 79900359 Active Not Available [facility] 3 08:42:30 Hip pain 91591826 Completed 02/23/2011 Not Available [facility] 3 03:14:59 Diarrhea of presumed infectious origin 06687732 Completed 10/18/2013 Not Available [facility] 3 02:04:15 Disorder of oral soft tissues 35625790 Completed 10/18/2013 Not Available [facility] 3 02:04:13 Acquired trigger finger 0723260 Active Not Available [facility] 3 08:42:29 Multiple benign melanocyti c nevi 666055840 Active Not Available [facility] 3 08:42:29 Onychomyco sis 969457116 Active Not Available [facility] 3 08:42:30 Benign prostatic hyperplasi a 932075455 Active 2018 Not Available [facility] 3 08:42:29 Adenomatou s polyp of colon 480004509 Active 2020 Not Available [facility] 3 08:42:30 COVID-19 483173018 Active 2020 Not Available [facility] 3 08:42:30 Problem Notes None recorded. Procedures Surgical History Date Name Laterality Status Provider Name and Address Organization Details Recorded Time 08/21/20 24 Medicare Wellness Visit completed Anamika Stewart MA [facility] 08/21/2024 09:44:21 06/05/20 24 Colonoscopy completed Meri Bond MD [address] [place] [address], [phone] 08/21/2024 14:36:15 08/19/20 23 Medicare Wellness Visit completed Anamika Stewart MA [facility] 08/19/2023 10:13:13 08/19/20 23 Advanced Care Planning completed Anamika Stewart MA [facility] 08/19/2023 10:14:15 05/06/20 22 Medicare Wellness Visit completed Laureen Pompa [facility] 05/06/2022 11:10:09 05/06/20 22 Alcohol use screening completed Laureen Pompa [facility] 05/06/2022 11:10:09 05/06/20 22 Cardiovascular disease risk reduction counseling completed Laureen Pompa [facility] 05/06/2022 11:10:09 10/20/20 21 [address]: Therapeutic Exercise completed Kacey Nice, PT [address] [place], [address], [facility] 10/20/2021 17:19:30 10/20/20 21 [address]: Manual Therapy completed Kacey Nice, PT [address] [place], [address], [facility] 10/20/2021 17:19:35 10/13/20 21 [address]: Therapeutic Exercise completed Kacey Nice, PT [address] [place], [address], [facility] 10/13/2021 09:06:58 10/13/20 21 [address]: Manual Therapy completed Kacey Nice, PT [address] [place], [address], [facility] 10/13/2021 09:07:02 10/10/20 21 [address]25: Therapeutic Exercise completed Kacey Nice, PT [address] [place], [address], [facility] 10/10/2021 09:10:15 10/10/20 21 [address]843: Manual Therapy completed Kacey Nice, PT [address] [place], [address], [facility] 10/10/2021 09:10:20 10/06/20 21 [address]: Therapeutic Exercise completed Kacey Nice, PT [address] [place], [address], [facility] 10/06/2021 08:09:19 10/06/20 21 [address]: Manual Therapy completed Kacey Nice, PT [address] [place], [address], [facility] 10/06/2021 08:09:24 10/03/20 21 Physical Activity Counselling completed Kacey Nice, PT [address] [place], [address], [facility] 10/03/2021 08:32:37 10/03/20 21 [address]88: PT Eval Low Complexity completed Kacey Nice, PT [address] [place], [address], [facility] 10/03/2021 08:32:35 03/03/20 21 Medicare Wellness Visit completed Yaneth Fry MA [facility] 02/27/2021 14:48:10 03/03/20 21 prevention-cardiov ascular risk reduction counseling completed Yaneth Fry [facility] 02/27/2021 14:48:10 03/03/20 21 prevention-annual alcohol misuse screening completed Yaneth Fry [facility] 02/27/2021 14:48:10 01/28/20 21 Dolly - Colonoscopy completed Lenin Alberto MD [address] [place] [address], [phone], [facility] 01/27/2021 08:49:28 02/05/20 20 Medicare Wellness Visit completed Yina Contreras [facility] 02/05/2020 08:04:12 02/05/20 20 prevention-cardiov ascular risk reduction counseling completed Yina Contreras [facility] 02/05/2020 08:04:12 02/05/20 20 prevention-annual alcohol misuse screening completed Yina Contreras [facility] 02/05/2020 08:04:12 01/10/20 16 Dolly - Colonoscopy completed Lenin Alberto MD [address] [place] [address], [phone], [facility] 01/10/2016 08:31:16 11/29/19 01 Other (specify) completed Mary Beth Bocanegra M.D. [address] [place] [address], [phone], [facility] 10/20/2013 08:50:09 11/29/19 00 Other (specify) completed Not Available [facility] 10/15/2011 06:05:52 11/29/18 99 Back Surgery completed Mary Beth Bocanegra M.D. [address] [place] [address], [address], [facility] 10/20/2013 08:50:09 aquablation therapy of prostate completed Meri Bond MD [address] [place] [address], [address], [facility] 08/21/2024 14:31:01 Imaging Results None recorded. Procedure Notes None recorded. Medical Equipment None Reported. Allergies No known drug allergies Medications Name Sig Start Date Stop Date Status Note LastModified by Organization Details LastModified Time atorvasta tin 40 mg tablet TAKE 1 AND 1/2 TABLETS BY MOUTH EVERY DAY active Not Available Not Available No t Available Augmentin 875 mg-125 mg tablet Take 1 tablet every 12 hours by oral route for 7 days. 08/14 completed Not Available Not Available Not Available atorvasta tin 80 mg tablet TAKE 1 TABLET BY MOUTH EVERY DAY 2023 active Not Available Not Available Not Avai lable lisinopri l 20 mg tablet TAKE 1 TAB EVERY DAY BY ORAL ROUTE 06/29 completed Not Available Not Available Not Available Viagra 50 mg tablet Take 1/2 to 1 tablet(s ) EVERY DAY by oral route 1/2 hour to 3 hours prior to intercou rse as needed 2014 active Not Available Not Available Not Avai lable terazosin 1 mg capsule 1 cap bid 04/10 completed Not Available Not Available Not Available simvastat in 80 mg tablet Take 1 tablet every day by oral route in the evening. 2010 active Not Available Not Available Not Avai lable aspirin 81 mg tablet,de layed release Take 1 tablet every day by oral route. 2013 active Not Available Not Available Not Avai lable Lipitor 20 mg tablet Take 1 tablet every day by oral route. 12/16 completed Not Available Not Available Not Available levothyro xine 25 mcg tablet TAKE 1 TABLET BY MOUTH EVERY DAY 08/19 completed Not Available Not Available Not Available Bactroban 2 % topical cream Apply a small amount to the affected area by topical route 3 times per day for 10 days 2010 active Not Available Not Available Not Avai lable ciclopiro x 8 % topical solution APPLY TO THE AFFECTED AREA(S) BY TOPICAL ROUTE ONCE DAILY PREFERAB LY AT BEDTIME OR 8 HOURS BEFORE WASHING 10/07/ 2021 active Not Available Not Available Not Avai lable lorazepam 0.5 mg tablet Take 1/2 tab up to twice a day as needed 2014 active Not Available Not Available Not Avai lable tamsulosi n 0.4 mg capsule Take 1 capsule every day by oral route. 11/16 completed Not Available Not Available Not Available ranitidin e 150 mg tablet Take 1 Tab BID 04/02 completed using OTC due to easier - 12/20/17 - LSRaniti dine Recall, pt states no longer taking Not Available Not Available Not Available betametha sone dipropion ate 0.05 % topical cream Apply a thin layer to the affected area(s) by topical route once daily 08/19 completed PRN Not Available Not Available Not Available omeprazol e 20 mg capsule,d elayed release Take 1 capsule every day by oral route. active Not Available Not Available No t Available diltiazem CD 120 mg capsule,e xtended release 24 hr TAKE 1 CAPSULE BY MOUTH EVERY DAY 2023 active Not Available Not Available Not Avai lable levothyro xine 200 mcg tablet TAKE 1 TABLET BY MOUTH EVERY DAY 2023 active Not Available Not Available Not Avai lable lisinopri l 40 mg tablet TAKE 1 TABLET BY MOUTH EVERY DAY 2023 active Not Available Not Available Not Avai lable Cialis 20 mg tablet Take 1/2 to 1 tablet(s ) EVERY DAY by oral route 1/2 hour to 3 hours prior to intercou rse as needed 2015 active not covered by insuranc e; pt pays for out of pocket (05/06/22) - LS Not Available Not Available Not Available Flomax 05/24 completed Not Available Not Available Not Available famotidin e active otc Not Available Not Available Not Available Viagra active Not Available Not Availa ble Not Available oxybutyni n active Pt unsure of dose will 08/21/24 as Not Available Not Available Not Available Fish Oil 1,000 mg capsule active daily Not Available Not Available Not Available Vitals Date Recorded Body height Provider Name an d Address Organization Details Last Updated DateTime 11/16/2022 187.96 cm [facility] 11/16/2022 08:13:04 Date Recorded Body mass index (BMI) Provider Name and Address Organization Details Last Updated DateTime 11/16/2022 28.8 kg/m2 Sujata Muse MA MA [facility] 11/16/2022 08:17:30 Date Recorded Body weight Provider Name an d Address Organization Details Last Updated DateTime 11/16/2022 778449.79 g Sujata MccoyglROZ manzanares MA [facility] 11/16/2022 08:17:31 Date Recorded Heart rate Provider Name an d Address Organization Details Last Updated DateTime 11/16/2022 60 /min Sujata AlmazROZ manzanares MA [facility] 11/16/2022 08:20:38 Date Recorded Body height Provider Name an d Address Organization Details Last Updated DateTime 08/19/2023 187.96 cm Anamika Stewart MA [facility] 08/19/2023 15:33:15 Date Recorded Body mass index (BMI) Body weight Provider Name and Address Organization Details Last Updated DateTime 08/19/2023 28.3 kg/m2 809162.12 radha Anamika Stewart RZO [facility] 08/19/2023 15:34:21 Date Recorded Heart rate Provider Name an d Address Organization Details Last Updated DateTime 08/19/2023 76 /min Anamika Stewart ROZ [facility] 08/19/2023 15:35:04 Date Recorded Body height Provider Name an d Address Organization Details Last Updated DateTime 01/03/2024 187.96 cm Anamika Stewart ROZ [facility] 01/03/2024 08:16:20 Date Recorded Body mass index (BMI) Body weight Provider Name and Address Organization Details Last Updated DateTime 01/03/2024 29.4 kg/m2 520945.05 radha Anamika Stewart ROZ [facility] 01/03/2024 08:17:20 Date Recorded Heart rate Provider Name an d Address Organization Details Last Updated DateTime 01/03/2024 76 /min Anamika Stewart ROZ [facility] 01/03/2024 08:18:09 Date Recorded Body height Provider Name an d Address Organization Details Last Updated DateTime 08/21/2024 187.96 cm Anamika Stewart MA [facility] 08/21/2024 14:10:09 Date Recorded Body mass index (BMI) Body weight Provider Name and Address Organization Details Last Updated DateTime 08/21/2024 28.6 kg/m2 217482.1 g Anamika Stewart MA [facility] 08/21/2024 14:10:38 Date Recorded Heart rate Provider Name an d Address Organization Details Last Updated DateTime 08/21/2024 64 /min Anamika Stewart MA [facility] 08/21/2024 14:13:04 Date Recorded Systolic blood pressure Diastolic blood pressure Provider Name and Address Organization Details Last Updated DateTime 11/16/2022 116 mm[Hg] 72 mm[Hg] Sujata Muse ROZ [facility] 11/16/2022 08:20:14 Date Recorded Systolic blood pressure Diastolic blood pressure Provider Name and Address Organization Details Last Updated DateTime 08/19/2023 136 mm[Hg] 96 mm[Hg] Anamika BoydROZ garner [facility] 08/19/2023 15:34:32 Date Recorded Systolic blood pressure Diastolic blood pressure Provider Name and Address Organization Details Last Updated DateTime 08/19/2023 136 mm[Hg] 94 mm[Hg] Anamika ROZ Stewart [facility] 08/19/2023 15:37:28 Date Recorded Systolic blood pressure Diastolic blood pressure Provider Name and Address Organization Details Last Updated DateTime 08/19/2023 122 mm[Hg] 80 mm[Hg] Meri Bond MD [address] [place] [address], [phone] 08/19/2023 15:58:57 Date Recorded Systolic blood pressure Diastolic blood pressure Provider Name and Address Organization Details Last Updated DateTime 01/03/2024 134 mm[Hg] 80 mm[Hg] Anamika SetwartROZ [facility] 01/03/2024 08:17:42 Date Recorded Systolic blood pressure Diastolic blood pressure Provider Name and Address Organization Details Last Updated DateTime 01/03/2024 118 mm[Hg] 76 mm[Hg] Meri Bond MD [address] [place] [address], [phone] 01/03/2024 08:41:01 Date Recorded Systolic blood pressure Diastolic blood pressure Provider Name and Address Organization Details Last Updated DateTime 08/21/2024 136 mm[Hg] 86 mm[Hg] Anamika Stewart [facility] 08/21/2024 14:12:25 Date Recorded Systolic blood pressure Diastolic blood pressure Provider Name and Address Organization Details Last Updated DateTime 08/21/2024 122 mm[Hg] 78 mm[Hg] Meri Bond MD [address] [place], [address], [facility] 08/21/2024 14:23:07 Social History Question Answer Notes LastModified by Organization Details LastModified Time Tobacco Smoking Status Former Smoker former cigar smoker Nedra Carlson [address] [place] [address], [phone], [facility] 05/06/2022 11:40:17 What Is Your Level Of Alcohol Consumption? Moderate 3 To 4 Drinks A Week Information not available 11/18/2015 Do You Wear A Helmet When Biking? No N/a Information not available 11/18/2015 What Is Your Level Of Caffeine Consumption? Moderate 1-2 Cups Daily Information not available 11/18/2015 How Much Tobacco Do You Chew? None Former Chewing Tobacco User, Former Cigar csears Information not available 01/22/2009 Are You Currently Employed? Yes Information not available 05/06/2022 What Type Of Diet Are You Following? REGULAR Information not available 11/01/2014 Which Illicit Or Recreational Drugs Have You Used? None Information not available 11/18/2015 Do You Or Have You Ever Used E-cigarettes Or Vape? Never Used Electronic Cigarettes Information not available 02/05/2020 What Is The Highest Grade Or Level Of School You Have Completed Or The Highest Degree You Have Received? [id number] [employer] Information not available 05/06/2022 What Is Your Occupation? [employer] [employer] Frequently - Distribution Locations In [place] ([facility] [employer]) [email or web address] Information not available 02/05/2020 Have There Been Any Changes To Your Family Or Social Situation? No With , Selene Robertson Information not available 05/06/2022 When Did You Quit Smoking? 16+yearssince lastcigarette Not Cigarettes - Cigars/chewing Tobacco Information not available 05/06/2022 Are There Any Guns Present In Your Home? Yes Secured Information not available 11/01/2014 Does The Patient Have Difficulty Speaking Hungarian? No Information not available 11/18/2015 Does The Patient Have Difficulty Reading Hungarian? No Information not available 11/18/2015 Patient Has Health Care Proxy Signed And In Chart Yes Spouse [email or web address] Information not available 03/04/2021 MOLST Form Signed And In Chart 08/19/2023 [email or web address] Information not available 08/20/2023 CCM Consent Discussion 08/21/2024 [email or web address] Information not available 09/12/2024 What Was The Date Of Your Most Recent Tobacco Screening? 08/21/2024 Information not available 08/21/2024 How Many Children Do You Have? 3 Born '78, '84, '86 Estranged From Them And Hasn't Seen 2 Of His Grandchildren Information not available 05/06/2022 Are There Any Occupational Health Risks Where You Work? None Information not available 11/18/2015 What Is Your Current Pack Years? 10packyears Information not available 05/06/2022 What Is Your Relationship Status? Selene Robertson Information not available 05/06/2022 Do You Use Your Seat Belt Or Car Seat Routinely? Yes Information not available 05/06/2022 Are You Sexually Active? Yes Information not available 10/15/2011 Do You Have Smoke And Carbon Monoxide Detectors In Your Home? Yes Information not available 05/06/2022 At What Age Did You Start Smoking Tobacco? 19 Information not available 05/06/2022 Are You Passively Exposed To Smoke? No Information not available 05/06/2022 Do You Or Have You Ever Used Smokeless Tobacco? Former Smokeless Tobacco User Previously Chewed Tobacco Information not available 05/06/2022 What Types Of Sporting Activities Do You Participate In? None Information not available 11/18/2015 Do You Use Sunscreen Routinely? Yes Information not available 11/01/2014 How Many Years Have You Smoked Tobacco? 10 Information not available 05/06/2022 Do You Or Have You Ever Used Any Other Forms Of Tobacco Or Nicotine? No Information not available 08/21/2024 Sex: Male Functional Status Question Answer Note LastModified by Organizat ion Details LastModified Time What is your exercise level? Moderate Walking 3-4d/wk. [email or web address] Information not available 01/22/2009 Mental Status None recorded. Family History Relationship Description Onset Age of this Age Resolved Age Notes LastModified by Organization Details LastModified Time Father Hypertensive disorder Not available 11/18 14:18:05 Father Chronic obstructive pulmonary disease 87 91 Not available 11/18 14:16:45 Sister Depressive disorder Not available 11/18 14:18:05 Sister Disorder of thyroid gland [email or web address] Not available 11/18 14:18:05 Mother Disorder of thyroid gland Not available 11/18 14:18:05 Mother Depressive disorder Not available 11/18 14:18:05 Mother Malignant neoplastic disease 57 MM; also NOS Not available 11/18/2015 14:18:05 Sister Depressive disorder Not available 11/18 14:18:05 Sister Well adult [email or web address] Not avail able 11/18/2015 14:18:05 Maternal Grandfather Malignant tumor of prostate Not available 05/06 11:39:07 Notes:No family hx colon can cer, no CAD/stroke, no DM Medical History No medical history recorded. Immunizations Vaccine Type Date Status Note Provider Nam e and Address Organization Details Recorded Time Influenza, split virus, trivalent, preservative 1 completed Not Available [facility] 12/16/2019 02:26:41 influenza, seasonal, intradermal, preservative free 2 completed Not Available [facility] 12/16/2019 02:18:54 Influenza, split virus, quadrivalent, PF 3 completed Not Available [facility] 12/16/2019 02:30:29 Tdap 0 completed Not Available [facility] 12/16/2019 02:34:12 Novel [id number] 0 completed Not Available [facility] 12/16/2019 02:17:43 Influenza, split virus, trivalent, preservative 0 completed Not Available [facility] 12/16/2019 02:33:03 Influenza, split virus, quadrivalent, PF 4 completed Not Available [facility] 12/16/2019 02:19:21 Influenza, split virus, quadrivalent, PF 5 completed Not Available [facility] 12/16/2019 02:20:13 Influenza, split virus, quadrivalent, PF 6 completed Not Available [facility] 12/16/2019 02:33:34 zoster live 4 completed Not Available [facility] 12/30/2019 02:10:39 Td (adult), 2 Lf tetanus toxoid, preservative free, adsorbed 9 completed Not Available [facility] 12/16/2019 02:34:11 Influenza, split virus, quadrivalent, PF 7 completed Not Available [facility] 12/30/2019 02:10:42 pneumococcal polysaccharide PPV23 0 completed Yina Contreras CMA null, [facility] 02/05/2020 10:39:29 influenza, unspecified formulation 8 completed Slade Almanza CMA null, [facility] 01/09/2019 10:55:58 Influenza, split virus, quadrivalent, preservative 9 completed Ute Anderson LPN null, [facility] 08/20/2019 08:41:30 Influenza, split virus, trivalent, preservative 0 completed Not Available [facility] 12/16/2019 02:26:04 Influenza, high-dose, quadrivalent, PF 1 [facility] 09/04/2021 08:11:04 Influenza, split virus, trivalent, PF 9 completed Not Available [facility] 12/16/2019 02:27:37 Influenza, high-dose, trivalent, PF 0 [facility] 10/07/2020 08:31:51 zoster recombinant 0 [facility] 10/07/2020 08:32:32 COVID-19, mRNA, LNP-S, PF, 30 mcg/0.3 mL dose 1 [facility] 03/03/2021 08:35:12 Influenza, high-dose, quadrivalent, PF 3 completed Meri Bond MD [address] [place] [address], [id number], [facility] 08/20/2023 14:11:19 COVID-19, mRNA, LNP-S, PF, 30 mcg/0.3 mL dose 1 [facility] 12/01/2021 12:03:54 COVID-19, mRNA, LNP-S, PF, 30 mcg/0.3 mL dose 1 [facility] 12/01/2021 12:04:11 zoster recombinant 9 completed Laureen Pompa CMA [facility] 05/07/2022 15:41:38 influenza, unspecified formulation 2 completed [facility] 10/26/2022 08:55:58 COVID-19, mRNA, LNP-S, bivalent, PF, 50 mcg/0.5 mL or 25mcg/0.25 mL dose 2 completed [facility] 10/26/2022 08:56:20 COVID-19, mRNA, LNP-S, PF, 30 mcg/0.3 mL dose, joaquina-sucrose 3 completed [facility] 11/26/2023 11:15:09 Influenza, split virus, quadrivalent, PF 3 completed Yina Contreras, SUPERVISOR S[employer] TECHNICIAN null, [facility] 11/26/2023 11:16:23 COVID-19, mRNA, LNP-S, PF, 50 mcg/0.5 mL 4 completed Becky Jung null, [facility] 09/25/2024 16:11:18 Influenza, split virus, trivalent, PF 4 completed Becky Jung null, [facility] 09/25/2024 16:11:49 Past Encounters Encounter ID Performer Location Encounter Start Date Encounter Closed Date Diagnosis/Indication Diagnosis SNOMED-CT Code Diagnosis ICD10 Code Diagnosis Note [id number] [facility], OFF[address] [facility] [place] [address] 01/22/2009 14:08:11 01/25/2009 15:27:33 [id number] [facility] - [facility] [address] [facility] [place] [address] 02/15/2009 06:48:08 02/15/2009 07:14:46 [id number] [facility], OFFICE [address] [facility] [place] [address] 12/16/2009 07:50:09 12/18/2009 15:32:[id number] [facility], OFFICE [address] [facility] [place] [address] 01/20/2010 08:52:32 01/22/2010 10:29:[id number] [facility], OFF[address] [facility] [place] [address] 02/21/2010 08:52:58 02/24/2010 15:46:[id number] [facility], OFFICE [address] [facility] [place] [address] 08/25/2010 07:47:26 08/28/2010 15:32:[id number] [facility], [address] [facility] [place] [address] 12/22/2010 11:56:54 12/25/2010 14:12:19 [id number] , [facility], OFFICE [address] [place] [facility] [place] [address] 02/06/2011 08:02:50 02/10/2011 15:46:10 [id number] Physical Therapy, [facility] [address] [facility] [place] [address] 02/16/2011 16:16:58 02/18/2011 10:18:40 [id number] Physical Therapy, [facility] [address] [place] [address] 02/23/2011 16:17:35 02/24/2011 08:34:22 [id number] Physical Therapy, [facility] [address] [place] [address] 03/04/2011 16:18:49 03/05/2011 07:55:59 [id number] FP, C, OFFICE [address] [facility] [place] [address] 04/10/2011 07:49:48 04/15/2011 12:51:15 [id number] FP, C, OFFICE [address] [facility] [place] [address] 07/31/2011 09:36:10 07/31/2011 10:06:39 [id number] FP, C, OFF[address] [facility] [place] [address] 10/09/2011 07:47:58 10/09/2011 08:43:33 [id number] FP, C, OFF[address] [facility] [place] [address] 04/08/2012 07:57:19 04/08/2012 08:55:29 [id number] Heidi Frausto NP FP, [facility], OFF[address] [facility] [place] [address] 10/14/2012 08:45:44 10/14/2012 09:35:30 [id number] ALLYSON Tran, [facility], OFF[address] [facility] [place] [address] 04/14/2013 08:03:12 04/14/2013 09:01:35 [id number] FP, C, OFFICE [address] [facility] [place] [address] 10/20/2013 08:22:50 10/20/2013 09:12:53 Essential hypertension 13428295 well controlled due for a1c and cbc Hyperlipidemia 50452444 well controlled Counseling [id number] reece houston need to review chart -- but per brief review - normal cscope 2006, therefore due 2016 given no fh and no prior polyps Influenza vaccine needed [id number] Cher Richards LPN , [facility], OFFICE [address] [place] [address] 10/31/2014 14:22:17 10/31/2014 15:25:30 Adult health examination 705358025 see Risk Assessment and Lifestyle Change Counseling section above Counseling 096636303 Influenza vaccine needed 2660165699 106 Metabolic syndrome X 154733754 at risk for metabolic syn; framingham 24.4% In individual s for whom the potential harm of GI hemorrhage does not outweigh potential benefit, the USPSTF recommends aspirin in men aged 45 to 79 for prevention of myocardial infarction and in women aged 55 to 79 for prevention of stroke; therefore given comorbidit ies and CVD risk >10% in 10 years by framingham score, asa 81mg daily is recommende d; pt aware of major risk of bleeding but accepts this risk in making this decision. 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 3222255 monitor for now, no change in function, no pain Multiple b enign melanocytic nevi 831711056 no change, photo taken for chart; reviewed redflags of skin cancer and pt to report changes to me og Hyperlipidemia 77193917 yearly eval tlc reviewed wt loss needed on high dose statin check lft yearly as well Essential hypertension 99930659 above goal in setting of wt gain and stress, recheck in 1 mo Hypothyroidism 92907002 stable, check tsh yearly Gastroesop hageal reflux disease 479064747 avoid nsaids GERD lifestyle encouraged Onychomycosis 569974538 on high dose statin; i'm reluctant to start lamisil; can try otc options but rarely work; monitor for now per pt preference Anxiety 89206231 decline s therpay or meds at this point monitor, call if worsens, see back in 1mo TLB/health hygiene tips reviewed [id number] Mary Beth Bocanegra M.D. , [facility], OFFICE [address] [place] [address] 01/08/2015 09:00:01 01/08/2015 09:38:06 Metabolic syndrome X 297059286 at risk for metabolic syn; framingham 24.4% on asa since 10/2014; continue effort at tlc Essential hypertension 23392795 improved with wt loss ekg for baseline today reassuring ; I do not see q waves in a geographic al distributi on pt's chest pressure likely very much due to anxiety (in past in the ER for similar situation) continue TLC Gastroesop hageal reflux disease 868229389 avoid nsaids GERD lifestyle encouraged improved on zantac continue wt loss effort and tlc Anxiety 45306660 worse i n situation anxiety/st ress discussed risk/benef it of benzo; not an ideal medication ; just a bandaid without other benefits and known harms of tolerance, dependence pt to use sparingly if requiring additional refills will need SSRI and therapist; pt aware no SI [id number] Ella AYALA, [facility], OFFICE [address] [place] [address] 03/11/2015 08:28:24 03/11/2015 09:12:11 Pain in finger 49307973 59 yo M w/ HTN, anxiety R hand 2nd and 3rd digit x 3 weeks 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; chronic L 5th digit trigger finger; LHD eval to optimize managemnt Impotence 314831682 has taken 10-20mg / episode (bought on the internet) encouraged TLC to help w/ bp as may be contributi ng provided dose as per request Essential hypertension 96572960 improved with wt loss 12/2014: ekg for baseline reassuring ; pt's chest pressure likely very much due to anxiety (in past in the ER for similar situation) continue TLC return if bp >140/90 consistnel ty <2g salt/day record random home bp readings and bring back card Hyperlipidemia 69876371 yearly eval tlc reviewed wt loss needed on high dose statin check lft yearly as well [id number] Nedra AYALA, [facility], OFFICE [address] [place] [address] 11/18/2015 13:46:42 11/18/2015 14:51:50 Adult health examination 022611368 Z00.00 see Risk Assessment and Lifestyle Change Counseling section above Counseling 101814095 Z71 .9 Active or passive immunization 102156210 Z23 Screening for disorder 444655304 Z11.59 Screening for cancer 158 78295 Z12.9 Essential hypertension 75082195 I10 Blood pressures at goal (<140/90). To continue with current medication s and to check intermitte ntly. Hypothyroidism 93096359 E03.9 TSH at goal. To continue with current medication with routine follow-up. Mixed hyperlipidemia 267 113235 E78.2 LDL goal <130. LDL at goal. To continue with current medication s with routine follow-up. [id number] Eliza Partida [facility] [address] [place] [address] 01/10/2016 07:01:12 01/10/2016 12:52:55 [id number] Nedra Carlson , [facility], OFFICE [address] [place] [address] 05/13/2016 08:06:05 05/13/2016 08:55:23 Essential hypertension 66715030 I10 Blood pressure goal is <140/90. Home meter is off, particular ly diastolica lly. Recommenda tions as below. Hypothyroidism 08118653 E03.9 TSH at goal. To continue with current medication with routine follow-up. Mixed hyperlipidemia 267 905129 E78.2 LDL goal <130. LDL at goal. To continue with current medication s with routine follow-up. [id number] Nedra Carlson , [facility], OFFICE [address] [place] [address] 11/24/2016 08:13:42 11/24/2016 09:22:22 Adult health examination 039269638 Z00.00 see Risk Assessment and Lifestyle Change Counseling section above Counseling 609913950 Z71 .9 Active or passive immunization 790433484 Z23 Nocturia 493364265 R35.1 May be BPH, but asymmetry to lobes of unclear significan ce. Will check a PSA and see if it is increasing . Could consider flomax as terazosin didn't seem to do much, but given asymmetry will refer to urology. Essential hypertension 64343994 I10 Blood pressure goal is <140/90. At goal 90% of the time; 10% the diastolic is elevated, but we haven't checked his new meter against ours. Will have pt continue to monitor Hypothyroidism 42490958 E03.9 TSH at goal. To continue with current medication with routine follow-up. Mixed hyperlipidemia 267 132812 E78.2 LDL goal <130. LDL at goal. To continue with current medication s with routine follow-up. [id number] Nedra AYALA, [facility], OFFICE [address] [place] [address] 05/24/2017 07:53:29 05/24/2017 08:26:08 Mixed hyperlipidemia 673810094 E78.2 ASCVD risk elevated, controlled with atorvastat in. To continue with current medication s with routine follow-up. Essential hypertension 35847412 I10 Blood pressure goal is <140/90. To continue with current medication with routine follow-up. Hypothyroidism 60128913 E03.9 TSH at goal. To continue with current medication with routine follow-up. [id number] Nedra AYALA, [facility], OFFICE [address] [place] [address] 12/20/2017 08:21:50 12/20/2017 09:14:36 Adult health examination 793916689 Z00.00 see Risk Assessment and Lifestyle Change Counseling section above Counseling 644577080 Z71 .9 Mixed hyperlipidemia 267 710022 E78.2 ASCVD risk elevated, controlled with atorvastat in. To continue with current medication s with routine follow-up. Benign ess ential hypertension 9614985 I10 Blood pressure at goal. To continue with current medication s with routine follow-up. Hypothyroidism 17764335 E03.9 TSH has drifted up slightly, but not terribly high. No significan tly missed doses; taking on empty stomach. To continue with current medication and will check in 8 weeks. If still drifting up would adjust medication slightly. Senile hyperkeratosis 39 0950290 L82.1 R mosque, benign, would monitor. [id number] MD LUCY Rehman, [facility], OFFICE [address] [place] [address] 03/04/2018 07:34:17 03/04/2018 07:56:04 Melanocytic nevus 219114505 D22.9 left neck. sent for biopsy [id number] Nedra AYALA, [facility], OFFICE [address] [place] [address] 06/13/2018 07:49:50 06/13/2018 08:23:30 Mixed hyperlipidemia 672944753 E78.2 ASCVD risk elevated, controlled with atorvastat in. To continue with current medication s with routine follow-up. Essential hypertension 03442850 I10 Blood pressure goal is <140/90. To continue with current medication with routine follow-up. [id number] Nedra Carlson , [facility], OFFICE [address] [place] [address] 01/09/2019 10:48:23 01/09/2019 11:21:22 Essential hypertension 29101496 I10 Blood pressure goal is <140/90. To continue with current medication with routine follow-up. Mixed hyperlipidemia 267 721529 E78.2 ASCVD risk elevated, controlled with atorvastat in. To continue with current medication s with routine follow-up. Adult heal th examination 358361500 Z00.00 see Risk Assessment and Lifestyle Change Counseling section above Counseling 339685876 Z71 .9 Depression screening 171 170188 Z13.89 depression screening tool administer ed, entered into emr, scored and discussed, time greater than 7.5 minutes, no depression Benign pro static hyperplasia 995618906 N40.0 To follow with urology. Hypothyroidism 95134909 E03.9 TSH stable. To continue with current medication s with routine follow-up. [id number] LUCY [facility], OFFICE [address] [place] [address] 03/02/2019 07:50:45 03/03/2019 09:18:33 Pain of bilateral hands 3545319915 1378188 M79.641 Pain in bilateral handsNo acute deformity or abnormalit y noted on exam, good AROM and strengthUn likely gout or infection based on presentati on Will check labs to assess for inflammato ry arthritis risk, if positive will refer to rheumatolo gy for treatmentW ill check xray to assess for OA, if OA noted would consider hand PTCan use tylenol (3000 mg daily max) or ibuprofen (2400 mg daily max) as needed for discomfort Will have patient follow up with PCP if symptoms worsen or do not improve, acute redness, pain or fever >064 [id number] Mary Beth Luna RN , [facility], OFFICE [address] [place] [address] 06/06/2019 14:59:06 06/06/2019 15:22:27 Active or passive immunization 666864221 Z23 [id number] Nedra Carlson , [facility], OFFICE [address] [place] [address] 06/13/2019 11:16:00 06/13/2019 12:09:45 Cellulitis of lower limb 275611593 L03.119 Due to bite. Will use augmentin twice daily with food x7 days [id number] Nedra Carlson , [facility], OFFICE [address] [place] [address] 08/14/2019 07:55:24 08/14/2019 08:36:44 Mixed hyperlipidemia 646896809 E78.2 ASCVD risk elevated, controlled with atorvastat in. To continue with current medication s with routine follow-up. Hypothyroidism 28809781 E03.9 TSH stable. To continue with current medication s with routine follow-up. Essential hypertension 41650304 I10 Blood pressure goal is <130/80. To continue with current medication with routine follow-up. Pain in right thumb 1076 852565 768404 M79.889 [id number] Yina Contreras CMA , [facility], OFFICE [address] [place] [address] 02/05/2020 07:50:54 02/05/2020 08:50:11 Adult health examination 089618410 Z00.00 see Risk Assessment and Lifestyle Change Counseling section above Counseling 787835017 Z71 .9 including cardiovasc ular risk reduction counseling Depression screening 171 331680 Z13.89 depression screening tool administer ed, entered into emr, scored and discussed, time greater than 7.5 minutes Screening for alcohol abuse 526854908 Z13.39 Essential hypertension 79655023 I10 Blood pressure goal is <130/80. To continue with current medication with routine follow-up. Mixed hyperlipidemia 267 800303 E78.2 ASCVD risk elevated, controlled with atorvastat in. To continue with current medication s with routine follow-up. Atopic dermatitis 338311 01 L20.9 Lesion of pinna 76416223 2 H61.899 Active or passive immunization 538075817 Z23 [id number] Nedra AYALA, [facility], OFFICE [address] [place] [address] 08/19/2020 10:08:15 08/21/2020 17:40:05 Essential hypertension 30174937 I10 Blood pressure goal is <130/80; usually at goal. To continue with current medication with routine follow-up. Lesion of pinna 49372829 2 H61.899 Will refer back to derm Samuel f asting glycemia 300652118 R73.01 Plan on repeat in 6 months. Hyperlipidemia 95455750 E78.5 TG's elevated. Atorvastat in keeping other values under control. Will recheck in 6 months with follow-up with WReece then. Finger joint locking 299 584662 M24.849 Active or passive immunization 732968635 Z23 [id number] Gabriella Munoz RN [facility], [address] [address] 01/27/2021 07:19:10 01/27/2021 12:19:13 [id number] Nedra AYALA, [facility], OFFICE [address] [place] [address] 03/03/2021 08:28:32 03/04/2021 13:46:21 Adult health examination 316819976 Z00.00 see Risk Assessment and Lifestyle Change Counseling section above Counseling 416017575 Z71 .9 including cardiovasc ular risk reduction counseling Depression screening 171 300359 Z13.31 depression screening tool administer ed, entered into emr, scored and discussed, time greater than 7.5 minutes, no depression Screening for alcohol abuse 471143679 Z13.39 Essential hypertension 23945442 I10 Blood pressure NOT at goal <130/80; usually at goal. Pt currently on lisinopril 40mg daily. Will check home pressures and check monitor, however, to determine if a second agent necessary or not. Mixed hyperlipidemia 267 915277 E78.2 Cholestero l is at goal; to continue with atorvastat in. [id number] Nedra AYALA, [facility], OFFICE [address] [place] [phone] 09/04/2021 07:44:10 09/08/2021 10:47:26 Essential hypertension [id number] I10 Blood pressure NOT at goal <130/80 today. Will have pt check at home; if still elevated would add second agent (likely diltiazem, given HCTZ may exacerbate urinary issues). Mixed hyperlipidemia 267 186578 E78.2 Cholestero l is at goal; to continue with atorvastat in. Active or passive immunization 230775014 Z23 Toenail thickened 122185 000 R23.8 Left third toenail with possible mild onychomyco sis. Would refer to podiatry for trimming and in the meantime, Degenerati ve joint disease of hand 44073520 M19.049 Will refer back to Dr. Vargas. Reduced libido 3959466 R 68.82 Pt with questions about testostero ne level; will check. Discussed that treatment with testostero ne does raise risk of heart attack/str roberto/cardio vascular disease. Pt would first just like to know where his level is at. Biceps tendinitis 20280403 007 M75.21 [id number] Kacey Nice, PT Physical Therapy, [address] [phone] 10/03/2021 07:51:03 10/06/2021 07:45:49 Shoulder pain 93424880 M25.106 [id number] Kacey Nice, PT Physical Therapy, [address] [address] 10/06/2021 07:27:51 10/06/2021 08:29:10 Shoulder pain 23793692 M25.563 [id number] Kacey Nice, PT Physical Therapy, [address] [phone] 10/10/2021 08:24:41 10/10/2021 09:15:11 Shoulder pain 28774233 M25.653 [id number] Kacey Nice, PT Physical Therapy, [address] [phone] 10/13/2021 08:21:58 10/13/2021 09:15:09 Shoulder pain 91511859 M25.143 [id number] Kacey Nice, PT Physical Therapy, [facility] [address] [place] [address] 10/20/2021 16:22:46 10/21/2021 13:12:09 Shoulder pain 16665765 M25.222 [id number] Nedra Carlson , [facility], OFFICE [address] [place] [phone] 6 12/01/2021 11:57:30 12/08/2021 09:36:40 Essential hypertension 64479674 I10 Blood pressure NOT at goal <130/80 today and at home. Pt would prefer to chart with calcium channel chemo rather than HCTZ which may exacerbate urinary issues (hx BPH). [id number] Nedra Carlson , [facility], OFFICE [address] [place] [phone] 01/26/2022 10:03:43 02/03/2022 12:47:02 Essential hypertension 92697088 I10 Blood pressure is nearly at goal <130/80 - diastolic averaging around 80 on lisinopril 40mg and diltiazem 120mg daily Would really just monitor at this point as hopefully diastolic will improve more as we get into warmer weather. [id number] Nedra Carlson , [facility], OFFICE [address] [place] [phone] 05/06/2022 10:47:52 05/06/2022 11:51:50 Adult health examination 146100919 Z00.00 Medicare Health Screening Schedule Bone Density Test {{N/A* DUE Done}} {{Due Again}}{{d eclined}}{ {Patient and provider discussed no further bone density screening} }Immunizat ions {{up to date}} {{prevnar done prevn ar due now prevna r declined}} {{Pneumocc al23 done* pneu moccal 23 done pneum occal due next year pneum occoal 23 declined}} {{Td*}} {{Tdap}} {{done* du e now due next year decli daisha}}2019S hingrix {{done* du e now declin ed}}staff needs to get records from [facility] AliciaTeddy gray {{do yearly in fall* done declined} }Colon Cancer Screening {{yearly stool for blood test done yearl y stool for blood test due}}{{col onoscopy done next colonoscop y due}}{{pat ient and provider discussed and agreed no further colon cancer screening} }Lung Cancer Screening {{N/A*}} ((done due }} {{Patient and provider discussed and patient declined p atient and provider discussed and have agreed no further testing}}B reast Cancer Screening{ {N/A*}} {{Discusse d with shared decion making}} {{patient prefers yearly mammograms patient prefers everyother year mammograms patient declines mammogram screening patient and provider discussed and agreed no further screening} }Cervical Cancer Screening {{N/A*}} {{Patient does not need further pap testing}} {{patient requires further pap testing due to increased risk}}{{re cent HPV exposure D ES exposure o ther high risk}} {{Pap due}}Prost ate Cancer Screening {{N/A}} seeing urology for BPH{{infor med consent regarding prostate screening with psa was discussed} }{{patient choose to have PSA Patien t choose to not have PSA Patien t and provider discussed no further PSA screening indicated} }Abdominal Aneurysm Screen {{N/A}} {{done due declined Patient and provider discussed no further AAA screening indicated} } Counseling 113428742 Z71 .9 including cardiovasc ular risk reduction counseling Depression screening 171 157998 Z13.31 depression screening tool administer ed, entered into emr, scored and discussed, time greater than 7.5 minutes, no depression Screening for alcohol abuse 349720319 Z13.39 Essential hypertension 46667458 I10 Blood pressure at goal (<130/80). To continue with current healthy eating and exercise with routine follow-up. Mixed hyperlipidemia 267 944831 E78.2 Cholestero l well controlled on current medication s. Screening for disorder 287271824 Z13.6 Benign pro static hyperplasia 861181231 N40.1 To follow with urology. Hypothyroidism 41002230 E03.9 TSH stable. To continue with current medication s with routine follow-up. [id number] Nedra Carlson FP, [facility], OFFICE [address] [place] [address] 11/16/2022 07:59:48 11/16/2022 08:47:23 Essential hypertension 27363386 I10 Blood pressure at goal (<130/80). To continue with current healthy eating and exercise with routine follow-up. Pt has plans to travel over the summer; will plan on med management in March and Wellness in July when they return from travel. Mixed hyperlipidemia 267 612438 E78.2 Cholestero l well controlled on current medication s. Hypothyroidism 47141819 E03.9 TSH stable. To continue with current medication s with routine follow-up. [id number] Meri Bond MD , [facility], OFFICE [address] [place] [address] 08/19/2023 14:44:06 08/19/2023 16:07:22 Adult health examination 690978155 Z00.00 Depression screening 171 906774 Z13.31 depression screening tool administer ed Screening for alcohol abuse 857493713 Z13.39 Alcohol use screening tool administer ed Screening for malignant neoplasm of prostate 589867408 Z12.5 PSA testing for ages 55-69 risks and benefits discussed {{patient declines testing te st ordered}}. Hypothyroidism 13802301 E03.9 Advance di rective discussed with patient 541958045 Z71.89 Advanced Care Planning1. Advanced care planning was discussed for {{less than more than}} 15 minutes. 2. Participan ts included {{patient patient and family pat ient's family pat ient's surrogate} } and they were given an opportunit y to decline discussion . 3. Health Care Proxy {{was was not}} discussed. 4. Patient {{has has not}} completed Health Care Proxy form. {{It was It was not}} given to take home. 5. Names(s) relationsh ip(s) of Health Care Proxy: 6. MOLST {{was was not}} discussed. 7. Patient {{has has not}} completed MOLST form. 8. Details of discussion : 9. Follow up needed: Active or passive immunization 699388281 Z23 Pt wants to wait on getting Flu til 08/19/23 as Essential hypertension 86623533 I10 Mixed hyperlipidemia 267 957954 E78.2 [id number] Meri Bond MD , [facility], OFFICE [address] [place] [address] 08/20/2023 12:36:43 08/21/2023 18:56:04 Active or passive immunization 152749016 Z23 [id number] Meri Bond MD , [facility], OFFICE [address] [place] [phone] 01/03/2024 08:04:56 01/04/2024 10:50:15 Benign prostatic hyperplasia 001774652 N40.1 Essential hypertension 80750164 I10 Arthritis of first carpometacarpal joint of right hand 7485831399 137085 M13.503 [id number] Mary Trujillo RN Endoscopy , [facility] [address] [place] [address] 06/05/2024 07:17:44 06/05/2024 10:18:22 [id number] Meri Bond MD , [facility], OFFICE [address] [place] [address] 08/21/2024 13:50:32 08/21/2024 14:54:05 Adult health examination 992676506 Z00.00 Depression screening 171 502283 Z13.31 depression screening tool administer ed Screening for alcohol abuse 832788386 Z13.39 Alcohol use screening tool administer ed Hypothyroidism 69677920 E03.9 TSH in range, continue levothyrox ine 200 mcg daily. Active or passive immunization 444546246 Z23 Flu: Wants to wait til Oct 08/19/23 as Declines today will get at pharmacy 08/21/24 as Pneumonia: advised 08/21/24 as Benign pro static hyperplasia 605368081 N40.1 on oxybutynin and with side effects, prefers to see another urologist, referral given Essential hypertension 19529235 I10 * Discussed cholestero l. Your HDL (good type) and triglyceri julissa are at goal.* Your LDL (bad type of cholestero l) is at goal* Continue your cholestero l lowering medication daily.* Saturated fat is a bad kind of fat. For a heart healthy diet, 16 grams of saturated fat per day for women and 20 grams of saturated fat per day for men.* A Mediterran isaiah type of diet and a plant based diet is recommende d, review the website: [employer]ar[employer]. org. The DASH diet is also recommende d.* Review this website: https://ww [employer]/al l-about-go od-and-betty ap for healthy inexpensiv e meals. Esophageal dysphagia 408 93762 R13.19 esophageal obstructio n due to food impaction in May 2024, no recurrence but continues to have difficulty , seems like it is stuck in his chest. Referral to GI given.advi sed to continue to try to chew slowly, and eat softer foods for now. [id number] Katherine Powers RN Endoscopy , [address] [phone] 12/12/2024 06:38:43 12/12/2024 12:00:45 Health Concerns Section Related Observation LastModified by Organization Detai ls LastModified Time None Recorded Concern Status LastModified by Organization Details LastModified Time None Recorded Advance Directives Directive None Recorded Payers Encounter Date Sequence Insurance Name Policy Number Policy Joyner Covered Member ID Joyner Member ID Guarantor Name 11/16/2022 2 [facility] [employer] Selene Robertson [id number] Jairo Robertson 11/16/2022 1 [place] [employer] Jairo E Robertson [id number] Jairo Robertson 08/19/2023 2 [place] Selene Robertson [id number] Jairo Robertson 08/19/2023 1 [place] [employer] [place] Jairo E Robetrson [id number] 2 Jairo Robertson 08/20/2023 2 [place] Selene Robertson [id number] Jairo Robertson 08/20/2023 1 [place] [employer] [place] Jairo E Robertson [id number] Jairo Robertson 01/03/2024 2 [place] Selene Robertson [id number] Jairo Robertson 01/03/2024 1 [place] [employer] Jairo E Robertson [id number] 2 Jairo Robertson 08/21/2024 2 [place] Selene Robertson [id number] Jairo Robertson 08/21/2024 1 [place] Jairo E Robertson [id number] 2 Jairo Robertson Notes Date Note Type Note Provider Name and Address Organization Details Recorded Time 2 text/html [facility] HyperlipidemiaReported bypatient.Duration:chronic Control:well controlled; LDL has been 100-130, goal is <130 Compliance:compliant with medications Barriers to CareNo identified barriers to care Context:Nonsmoker; No ischemic heart disease; No peripheral vascular disease (14253) Associated Symptoms:no fatigue; no change in exercise capacityVMG HypertensionReported bypatient.Context:No ischemic heart disease; No kidney disease; No history of CVA; No congestive heart failure; No history of transient ischemic attacks; No peripheral vascular disease; No history of diabetes Control:BP Goal less than (<140/90<130/80); Patient understands medications are to lower blood pressure Compliance:Compliant with medications Barriers to CareNo identified barriers to care Self Care:Using home BP monitor home BPs range 130-140/85/90 (see above) Associated Symptoms:No chest pain; No shortness of breath; No edema; No fatigue; No palpitations; No decline in exercise capacity; No snoringVMG HypothyroidReported bypatient.Duration:chronic Control:unchanged since last visit; TSH .5-2 Compliance:compliant with medications; compliant with follow-up visits Pt comes in today for med management. He is looking forward to retiring in April and traveling with his spouse via [place]. They will return in July. Nedra Carlson [address] [place] [address], [phone], [facility] [place]/16/[place] 08:44:23 3 text/html Physical Exam/MaleReported bypatient.PHAPatient is here for a Wellness Visit. He describes his health status as good. Patient's health is better than last year.Risk Assessment and Lifestyle Change Counseling 65+ (Medicare)Reported bypatient.Coronary Artery Disease Risk Assessment:No Family history of coronary artery disease; No personal history of diabetes; No history of peripheral vascular disease, AAA, or carotid disease; No personal history of coronary artery disease Breast Cancer Risk Assessment:No family history of breast cancer; No history of breast cancer or dcis Colon Cancer Risk Assessment:No family history of pre cancerous colon polyps or cancer; Patient has average risk for colon cancer Lung Cancer Risk Assessment:Has used cigarettes less than 30 pack years(smoked cigars until 1994 ([facility]));Former smoker quit more than 15 years ago; No symptoms of Lung Cancer; No asbestos exposure Fracture Risk Assessment:No unexplained fracture; balance is normal; No use of corticosteroids; No anti-seizure medication; Has adequate calcium intake; Taking Vitamin D supplement; No chronic use of proton pump inhibitors; Patient has average risk for osteoporotic bone fractures Cognitive/Behavioral Risk Assessment:Personal history of mental illness(hx anxiety during prior divorce was prev on lorazepam prn); No family history of mental illness; Do you or anyone else have concerns about your memory? no Safety Risk Assessment:Has grab bars in bathroom; Has rails on steps; No falls; No evidence of abuse/neglect; Do you feel safe in your current relationship?YES Functional Status:Patient does not have trouble hearing the television or radio when others do not.; Patient does not have to strain or struggle to hear/understand conversations; Patient does not need help with preparing meals, transportation, shopping, taking medicine, managing finances, or other activities of daily living.; Patient does not have visual loss that interferes with daily activities; Does not live alone; Patient was not unsteady and did not take longer than 30 seconds during the timed get up and go test.; Patient reports no falls in the past 6 months. Diet:Counseled about appropriate portion size; Counseled about eating a diet low in trans and saturated fats and high in fiber, fruits and vegetables; Counseled about appropriate calcium intake and good dietary sources of calcium.; Counseled about the importance of maintaining a positive calcium balance and taking 1000 iu Vitamin D daily.; Discussed the value of a Mediterranean diet , and eating more fruits and vegetables Exercise counseling:Discussed the importance of daily physical activity; Discussed the importance of weight bearing exerciseVMG HyperlipidemiaReported bypatient.Duration:chronic Control:well controlled; LDL has been 100-130, goal is <130 Compliance:compliant with medications; compliant with diet Barriers to CareNo identified barriers to care Context:Nonsmoker; No ischemic heart disease; No peripheral vascular disease (12419) Associated Symptoms:no fatigue; no change in exercise capacity Ability to Manage Self CareOn how confident the patient feels in ability to self manage condition the patient selects 10 with 10 being very confident and 1 being very low confidenceVMG HypertensionReported bypatient.Context:No ischemic heart disease; No kidney disease; No history of CVA; No congestive heart failure; No history of transient ischemic attacks; No peripheral vascular disease; No history of diabetes Control:BP Goal less than (130/80); Treated with diet and exercise; Treated with medications; Patient understands medications are to lower blood pressure Compliance:Compliant with medications; Compliant with diet; Compliant with exercise; Compliant with follow-up visits Barriers to CareNo identified barriers to care Self Care:not doing home bp monitoring Aggravating factors:counseled to increase activity; counseled to decrease salt intake Associated Symptoms:No chest pain; No shortness of breath; No edema; No fatigue; No palpitations; No decline in exercise capacity; No snoring Ability to Manage Self CareOn how confident the patient feels in ability to self manage condition the patient selects 10 with 10 being very confident and 1 being very low confidenceVMG HypothyroidReported bypatient.Duration:chronic Control:unchanged since last visit; TSH .5-2 Compliance:compliant with medications; compliant with follow-up visits has a motor home and [place] [facility] life is good per pt Meri Bond MD [address] [place] [address], [phone], [facility] [place] 08/19/2023 19:45:17 4 text/html VMG HypertensionReported bypatient.Context:No ischemic heart disease; No kidney disease; No history of CVA; No congestive heart failure; No history of transient ischemic attacks; No peripheral vascular disease; No history of diabetes Control:BP Goal less than (130/80); Treated with diet and exercise; Treated with medications; Patient understands medications are to lower blood pressure Compliance:Compliant with medications Barriers to CareNo identified barriers to care Self Care:Using home BP monitor home BPs range 130-140/85/90 (see above) Associated Symptoms:No chest pain; No shortness of breath; No edema; No fatigue; No palpitations; No decline in exercise capacity; No snoring Ability to Manage Self CarePatient feels very confident in ability to self manage condition HBPM 116/70 and similar when checked in the past 6 moshx of aquablation in 2021 and still having symptoms , unable to sleep at night because of urinationPt is an independent historian Meri Bond MD [address] [place] [address], [phone], [facility] [place] 01/03/2024 08:49:36 4 text/html Risk Assessment and Lifestyle Change Counseling (Medicare)Reported bypatient.Coronary Artery Disease Risk Assessment:No Family history of coronary artery disease; No personal history of diabetes; No history of peripheral vascular disease, AAA, or carotid disease; No personal history of coronary artery disease Breast Cancer Risk Assessment:No family history of breast cancer; No history of breast cancer or dcis Colon Cancer Risk Assessment:Patient has higherthan average risk for colon cancer Lung Cancer Risk Assessment:Has used cigarettes less than 20 pack years;Former smoker quit more than 15 years ago; No symptoms of Lung Cancer; No asbestos exposure Fracture Risk Assessment:No unexplained fracture; balance is normal; No use of corticosteroids; No anti-seizure medication; Has adequate calcium intake; Taking Vitamin D supplement; No chronic use of proton pump inhibitors; Patient has average risk for osteoporotic bone fractures Cognitive/Behavioral Risk Assessment:No personal history of mental illness; No family history of mental illness; Do you or anyone else have concerns about your memory? no Safety Risk Assessment:No grab bars in bathroom; Has rails on steps; No falls; No evidence of abuse/neglect; Do you feel safe in your current relationship?YES Functional Status:Patient does not have trouble hearing the television or radio when others do not.; Patient does not have to strain or struggle to hear/understand conversations; Patient does not need help with preparing meals, transportation, shopping, taking medicine, managing finances, or other activities of daily living.; Patient does not have visual loss that interferes with daily activities; Does not live alone; Patient was not unsteady and did not take longer than 30 seconds during the timed get up and go test.; Patient reports no falls in the past 6 months. Diet:Counseled about eating a diet low in trans and saturated fats and high in fiber, fruits and vegetables; Counseled about appropriate calcium intake and good dietary sources of calcium.; Counseled about the importance of maintaining a positive calcium balance and taking 1000 iu Vitamin D daily.; Discussed the value of a Mediterranean diet , and eating more fruits and vegetables Exercise counseling:Discussed the importance of daily physical activity; Discussed the importance of weight bearing exercise Safety:Counseled about protecting skin from the sun and lowering the risk of skin cancer The provider and patient discussed the Chronic Care Management program, including the services provided, and any fees associated with them. HBPM 92/58; 96/61;109/72 today aquablation this year Nov 2023frustrated with results and now oxybutynin is causing him side effectsED visit in May - esophageal obstruction due to food impaction; trouble for years and just drinks lots of water Meri Bond MD [address] [place] [address], [phone], [facility] [place] 08/21/2024 20:13:47
--- OUTSIDE RECORDS SUMMARY | 2024-12-14 13:13 | XMS_ITS | Data Portability ---
Author Organization [facility], [place], FP, EHC, OFFICE Address [address] [place] [address] Care Team Providers Care Bolt Man Name Role Phone NEDRA CARLSON Primary Care Provider [phone] DONNELL PIERCE Urologist Assessment Encounter Date Assessment [...] Details Appointments LAB Follow-Up 2024 07:00A M [facility] Lab Not available Not available Not available Medical Managemen t 15 2024 09:00A M Meri Bond MD Not available Not available Not available LAB Follow-Up 2024 07:00A M [facility] Lab Not available Not available Not available Wellness Visit 30 2024 08:30A M Meri Bond MD Not available Not available Not available Lab BMP, serum or plasma 2021 023 [facility], [address] [place] [address], [id number], 04/07/2023 15:05:04 lipid panel, serum 2021 023 [facility], [address] [place] [address], [id number], 04/07/2023 15:05:05 TSH, serum or plasma 2021 023 [facility], [address] [place] [address], [id number], 04/07/2023 11:11:19 BMP, serum or plasma 2023 024 [facility], [address] [place] [address], [id number], 01/03/2024 12:12:45 Referral gastroent erologist referral - esophagea l obstructi on due to food impaction in May continues to have issues but not to this extent, persisten t x many years. 2023 024 AMAURY Ward MD Gastro, [address] [place], [address], 10/25/2024 14:23:23 urologist referral - BPH did aquablati on and still with symptoms 2023 024 AMAURY García MD, [address] [place] [address] Jun Hernandez [address] [place] [address], [id number], 10/15/2024 23:58:41 Procedures None recorded. Surgeries None recorded. Imaging None recorded. Medication Orders None recorded. Patient TargetsNo targets recorded. Patient Instructions Encounter Date Encounter Id Patient Instructions Last Modified By Organization Details Last Modified Time 11/16/2022 [id number] -Med management with fasting labs in March -Wellness visit in July when you return Not available 11/16/2022 08:40:02 08/19/2023 [id number] preventing falls: care instructions [email or web address] Not available [...] food sources daily, * Take vitamin D 7457-6152 units daily to help absorption of calcium into your bones * Use sunblock consistently * Review the website: Oldwayspt.org to get more information on the Mediterranean diet - a heart healthy eating plan * Immunizations up to date; COVID vaccine booster recommended. Prevnar 20 at the pharmacy. * The current guidelines from the [place] [employer] is moderate aerobic physical activity [...] 1500 mg of sodium per day. The [place] [employer] (AHA) recommends 30 minutes of moderate physical activity 5 days a week. A Mediterranean type of diet and a plant based diet is recommended, review the website: [employer]Uplike. [email or web address] Not available 08/19/2023 19:38:55 01/03/2024 [id number] After a discussion of treatment and medication [...] 1500 mg of sodium per day. The [place] [employer] (AHA) recommends 30 minutes of moderate physical activity 5 days a week. A Mediterranean type of diet and a plant based diet is recommended, review the website: [employer]Uplike. 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 melo Not available 08/21/2024 14:17:54 Reason for Referral Urologist Referral for Benig n prostatic hyperplasia BPH did aquablation and still with symptoms Referring Physician: Meri Bond, Family Medicine, Encounter Date: 08/21/2024 Ep Tech Referral for Esophageal dysphagia esophageal obstruction due to food impaction in May continues to have issues but not to this extent, persistent x many years. Referring Physician: Meri Bnod, Family Medicine, Encounter Date: 08/21/2024 Results Created Date Observation Date Name Description Value Unit Range Abnormal Flag Note LastModifiedBy Organization Detail LastModifiedTime 11/02/20 22 11/02/2022 LIPID PANEL cholesterol 210 mg/dL <200 mg/dl Pawan able 200-2 39 mg/dl Borde rline High >240 mg/dl High Not Available [address], [address], 11/02/2022 14:23:21 11/02/20 22 11/02/2022 LIPID PANEL triglyceride s 125 mg/dL <150 mg/dL Vivien l 150-1 99 mg/dL Borde rline High 200-4 99 mg/dL High >500 mg/dL Very High Not Available [address], [address], 11/02/2022 14:23:21 11/02/20 22 11/02/2022 LIPID PANEL direct HDL 66 mg/dL <40 mg/dl - Major Risk for CHD >60 mg/dl - Negat adelita Risk for CHD Not Available [address], [address], 11/02/2022 14:23:21 11/02/20 22 11/02/2022 LDL - [...] r is not farrah lam. Not Available [address], [address], 11/02/2022 14:23:22 11/02/20 22 11/04/2022 BASIC METAB OLIC PANEL glucose 97 mg/dL 70-100 Not Available [address], [address], 11/04/2022 11:15:25 11/02/20 22 11/04/2022 BASIC METAB OLIC PANEL BUN 24 mg/dL 7-18 high Not Available [address], [address], 11/04/2022 11:15:25 11/02/20 22 11/04/2022 BASIC METAB OLIC PANEL creatinine 1.0 mg/dL 0.8-1. 3 Not Available [address], [address], 11/04/2022 11:15:25 11/02/20 22 11/04/2022 BASIC METAB OLIC PANEL B/C 24.0 ratio Not Available [address], [address], 11/04/2022 11:15:25 11/02/20 22 11/04/2022 BASIC METAB [...] be used in pregn alix. Not Available [address], [address], 11/04/2022 11:15:25 11/02/20 22 11/04/2022 BASIC METAB OLIC PANEL sodium 144 mmol/ L 136-14 5 Not Available [address], [address], 11/04/2022 11:15:25 11/02/20 22 11/04/2022 BASIC METAB OLIC PANEL potassium 4.4 mmol/ L 3.5-5. 1 Not Available [address], [address], 11/04/2022 11:15:25 11/02/20 22 11/04/2022 BASIC METAB OLIC PANEL chloride 104 mmol/ L 96-107 Not Available [address], [address], 11/04/2022 11:15:25 11/02/20 22 11/04/2022 BASIC METAB OLIC PANEL anion gap 11.0 5.0-15 .0 Not Available [address], [address], 11/04/2022 11:15:25 11/02/20 22 11/04/2022 BASIC METAB OLIC PANEL CO2 29 mmol/ L 21-32 Not Available [address], [address], 11/04/2022 11:15:25 11/02/20 22 11/04/2022 BASIC METAB OLIC PANEL calcium 9.4 mg/dL 8.5-10 .3 Not Available [facility] [address] [facility], [place], [address], 11/04/2022 11:15:25 11/30/19 23 11/30/2022 POCT URINE DIPST ICK color Yellow Not Available [facility] (Out[facility] [address] [place], [address], 11/30/2022 10:10:43 11/30/19 23 11/30/2022 POCT URINE DIPST ICK turbidity Clear Not Available [facility] [address] [place], [address], 11/30/2022 10:10:43 11/30/19 23 11/30/2022 POCT URINE DIPST ICK glucose, poct Trace negati ve abnormal Not Available [facility] (Outpatient) [address] [place], [address], 11/30/2022 10:10:43 11/30/19 23 11/30/2022 POCT URINE DIPST ICK ketone, poct Negati ve negati ve Not Available [facility] (Outpatient) [address] [place], [address], 11/30/2022 10:10:43 11/30/19 23 11/30/2022 POCT URINE DIPST ICK occult blood, poct Trace Intact negati ve abnormal Not Available [facility] (Outpatient) [address] [place], [address], 11/30/2022 10:10:43 11/30/19 23 11/30/2022 POCT URINE DIPST ICK specific gravity, poct 1.020 1.001- 1.030 Not Available [facility] (Out[facility]) [address] [place], [address], 11/30/2022 10:10:43 11/30/19 23 11/30/2022 POCT URINE DIPST ICK albumin, poct 1+ negati ve abnormal Not Available [facility]Outpatient[facility] [address] [place], [address], 11/30/2022 10:10:43 11/30/19 23 11/30/2022 POCT URINE DIPST ICK bili Negati ve negati ve Not Available [facility] (Outpatient) [address] [place], [address], 11/30/2022 10:10:43 11/30/19 23 11/30/2022 POCT URINE DIPST ICK urobilinogen 1.0 <1.0 high Not Available [facility] ([facility] [address] [place], [address], 11/30/2022 10:10:43 11/30/19 23 11/30/2022 POCT URINE DIPST ICK nitrite, poct Positi ve negati ve abnormal Not Available [facility] [address] [place], [address], 11/30/2022 10:10:43 11/30/19 23 11/30/2022 POCT URINE DIPST ICK pH, poct 7.5 5.0-8. 0 Not Available [facility] ([facility] [address] [place], [address], 11/30/2022 10:10:43 11/30/19 23 11/30/2022 POCT URINE DIPST ICK WBC screen, poct Trace negati ve abnormal Not Available [facility] [address] [place], [address], 11/30/2022 10:10:43 11/30/19 23 11/30/2022 URINE CULTU RE special requests None Not Available [facility] (Out[facility] [address] [place], [address], 12/02/2022 07:41:31 11/30/19 23 12/02/2022 URINE CULTU RE urine culture NO GROWTH 48HRS Not Available [facility] (Out[facility] [address] [place], [address], 12/02/2022 07:41:31 04/07/20 23 04/07/2023 TSH TSH 0.17 uIU/m L 0.50-6 .00 low The Ameri can Colle ge of Endoc rinol ogy and Ameri can Thyro id Assoc iatio n recom mend goal TSH value s betwe en 0.4-4 .0 mIU/m L. Not Available [address], [address], 04/07/2023 11:11:19 04/07/20 23 04/07/2023 BASIC METAB OLIC PANEL glucose 101 mg/dL 70-100 high Not Available [address], [address], 04/07/2023 15:05:04 04/07/20 23 04/07/2023 BASIC METAB OLIC PANEL BUN 26 mg/dL 7-18 high Not Available [address], [address], 04/07/2023 15:05:04 04/07/20 23 04/07/2023 BASIC METAB OLIC PANEL creatinine 0.9 mg/dL 0.8-1. 3 Not Available [address], [address], 04/07/2023 15:05:04 04/07/20 23 04/07/2023 BASIC METAB OLIC PANEL B/C 28.9 ratio Not Available [address], [address], 04/07/2023 15:05:04 04/07/20 23 04/07/2023 BASIC METAB [...] be used in pregn alix. Not Available [address], [address], 04/07/2023 15:05:04 04/07/20 23 04/07/2023 BASIC METAB OLIC PANEL sodium 144 mmol/ L 136-14 5 Not Available [address], [address], 04/07/2023 15:05:04 04/07/20 23 04/07/2023 BASIC METAB OLIC PANEL potassium 4.6 mmol/ L 3.5-5. 1 Not Available [address], [address], 04/07/2023 15:05:04 04/07/20 23 04/07/2023 BASIC METAB OLIC PANEL chloride 105 mmol/ L 96-107 Not Available [address], [address], 04/07/2023 15:05:04 04/07/20 23 04/07/2023 BASIC METAB OLIC PANEL anion gap 10.2 5.0-15 .0 Not Available [address], [address], 04/07/2023 15:05:04 04/07/20 23 04/07/2023 BASIC METAB OLIC PANEL CO2 29 mmol/ L 21-32 Not Available [address], [address], 04/07/2023 15:05:04 04/07/20 23 04/07/2023 BASIC METAB OLIC PANEL calcium 9.1 mg/dL 8.5-10 .3 Not Available [address], [address], 04/07/2023 15:05:04 04/07/20 23 04/07/2023 LIPID PANEL cholesterol 201 mg/dL <200 mg/dl Pawan able 200-2 39 mg/dl Borde rline High >240 mg/dl High Not Available [address], [address], 04/07/2023 15:05:05 04/07/20 23 04/07/2023 LIPID PANEL triglyceride s 92 mg/dL <150 mg/dL Vivien l 150-1 99 mg/dL Borde rline High 200-4 99 mg/dL High >500 mg/dL Very High Not Available [address], [address], 04/07/2023 15:05:05 04/07/20 23 04/07/2023 LIPID PANEL direct HDL 70 mg/dL <40 mg/dl - Major Risk for CHD >60 mg/dl - Negat adelita Risk for CHD Not Available [address], [address], 04/07/2023 15:05:05 04/07/20 23 04/07/2023 LDL - [...] r is not necritesh lam. Not Available [address], [address], 04/07/2023 15:05:06 04/29/20 23 04/29/2023 TSH TSH 0.18 uIU/m L 0.50-6 .00 low CWP=C onsis tent with previ ous. The Ameri can Colle ge of Endoc rinol ogy and Ameri can Thyro id Assoc iatio n recom mend goal TSH value s betwe en 0.4-4 .0 mIU/m L. Not Available [address], [address], 04/29/2023 11:41:28 06/29/20 23 06/30/2023 TSH TSH 0.51 uIU/m L 0.50-6 .00 The Ameri can Colle ge of Endoc rinol ogy and Ameri can Thyro id Assoc iatio n recom mend goal TSH value s betwe en 0.4-4 .0 mIU/m L. Not Available [address], [address], 06/30/2023 12:06:58 06/29/2006/30/2023 PSA PSA 1.41 NG/mL 0.00-4 .00 Not Available [address], [address], 06/30/2023 12:50:02 07/01/2007/01/2023 BASIC METAB OLIC PANEL glucose 89 mg/dL 70-100 Not Available [address], [address], 07/01/2023 10:47:34 07/01/20 23 07/01/2023 BASIC METAB OLIC PANEL BUN 27 mg/dL 7-18 high Not Available [address], [address], 07/01/2023 10:47:34 07/01/20 23 07/01/2023 BASIC METAB OLIC PANEL creatinine 0.9 mg/dL 0.8-1. 3 Not Available [address], [address], 07/01/2023 10:47:34 07/01/20 23 07/01/2023 BASIC METAB OLIC PANEL B/C 30.0 ratio Not Available [address], [address], 07/01/2023 10:47:34 07/01/20 23 07/01/2023 BASIC METAB [...] be used in pregn alix. Not Available [address], [address], 07/01/2023 10:47:34 07/01/20 23 07/01/2023 BASIC METAB OLIC PANEL sodium 143 mmol/ L 136-14 5 Not Available [address], [address], 07/01/2023 10:47:34 07/01/20 23 07/01/2023 BASIC METAB OLIC PANEL potassium 4.5 mmol/ L 3.5-5. 1 Not Available [address], [address], 07/01/2023 10:47:34 07/01/20 23 07/01/2023 BASIC METAB OLIC PANEL chloride 106 mmol/ L 96-107 Not Available [address], [address], 07/01/2023 10:47:34 07/01/20 23 07/01/2023 BASIC METAB OLIC PANEL anion gap 6.0 5.0-15 .0 Not Available [address], [address], 07/01/2023 10:47:34 07/01/20 23 07/01/2023 BASIC METAB OLIC PANEL CO2 31 mmol/ L 21-32 Not Available [address], [address], 07/01/2023 10:47:34 07/01/20 23 07/01/2023 BASIC METAB OLIC PANEL calcium 9.1 mg/dL 8.5-10 .3 Not Available [address], [address], 07/01/2023 10:47:34 07/01/20 23 07/01/2023 LIPID PANEL cholesterol 229 mg/dL <200 mg/dl Pawan able 200-2 39 mg/dl Borde rline High >240 mg/dl High Not Available [address], [address], 07/01/2023 10:47:35 07/01/20 23 07/01/2023 LIPID PANEL triglyceride s 84 mg/dL <150 mg/dL Vivien l 150-1 99 mg/dL Borde rline High 200-4 99 mg/dL High >500 mg/dL Very High Not Available [address], [address], 07/01/2023 10:47:35 07/01/20 23 07/01/2023 LIPID PANEL direct HDL 71 mg/dL <40 mg/dl - Major Risk for CHD >60 mg/dl - Negat adelita Risk for CHD Not Available [address], [address], 07/01/2023 10:47:35 07/01/20 23 07/01/2023 DIREC T [...] r is not farrah lam. Not Available [address], [address], 07/01/2023 10:47:36 01/03/20 24 01/03/2024 BASIC METAB OLIC PANEL glucose 69 mg/dL 70-100 low Not Available [address], [address], 01/03/2024 12:12:45 01/03/20 24 01/03/2024 BASIC METAB OLIC PANEL BUN 28 mg/dL 7-18 high Not Available [address], [address], 01/03/2024 12:12:45 01/03/20 24 01/03/2024 BASIC METAB OLIC PANEL creatinine 1.0 mg/dL 0.8-1. 3 Not Available [address], [address], 01/03/2024 12:12:45 01/03/20 24 01/03/2024 BASIC METAB OLIC PANEL B/C 28.0 ratio Not Available [address], [address], 01/03/2024 12:12:45 01/03/20 24 01/03/2024 BASIC METAB [...] Colla borat ion (CKD- EPI) Equat ion (Syedae r et. al 2020) as recom mike d by the Natio nal Kidne y Found ation . eGFR is based on age, serum creat inine , and sex. CKD-E PI does not calcu late eGFR by race, does not apply to child kenny (age <18 years ), and shoul d not be used in pregn alix. Not Available [address], [address], 01/03/2024 12:12:45 01/03/20 24 01/03/2024 BASIC METAB OLIC PANEL sodium 144 mmol/ L 136-14 5 Not Available [address], [address], 01/03/2024 12:12:45 01/03/20 24 01/03/2024 BASIC METAB OLIC PANEL potassium 4.4 mmol/ L 3.5-5. 1 Not Available [address], [address], 01/03/2024 12:12:45 01/03/20 24 01/03/2024 BASIC METAB OLIC PANEL chloride 106 mmol/ L 96-107 Not Available [address], [address], 01/03/2024 12:12:45 01/03/20 24 01/03/2024 BASIC METAB OLIC PANEL anion gap 9.2 5.0-15 .0 Not Available [address], [address], 01/03/2024 12:12:45 01/03/20 24 01/03/2024 BASIC METAB OLIC PANEL CO2 29 mmol/ L 21-32 Not Available [address], [address], 01/03/2024 12:12:45 01/03/20 24 01/03/2024 BASIC METAB OLIC PANEL calcium 9.0 mg/dL 8.5-10 .3 Not Available [address], [address], 01/03/2024 12:12:45 07/12/20 24 07/12/2024 BASIC METAB OLIC PANEL glucose 75 mg/dL 70-100 Not Available [address], [address], 07/12/2024 11:01:05 07/12/20 24 07/12/2024 BASIC METAB OLIC PANEL BUN 16 mg/dL 7-18 Not Available [address], [address], 07/12/2024 11:01:05 07/12/20 24 07/12/2024 BASIC METAB OLIC PANEL creatinine 0.9 mg/dL 0.8-1. 3 Not Available [address], [address], 07/12/2024 11:01:05 07/12/20 24 07/12/2024 BASIC METAB OLIC PANEL B/C 17.8 ratio Not Available [address], [address], 07/12/2024 11:01:05 07/12/20 24 07/12/2024 BASIC METAB [...] be used in pregn alix. Not Available [address], [address], 07/12/2024 11:01:05 07/12/20 24 07/12/2024 BASIC METAB OLIC PANEL sodium 143 mmol/ L 136-14 5 Not Available [address], [address], 07/12/2024 11:01:05 07/12/20 24 07/12/2024 BASIC METAB OLIC PANEL potassium 4.5 mmol/ L 3.5-5. 1 Not Available [address], [address], 07/12/2024 11:01:05 07/12/20 24 07/12/2024 BASIC METAB OLIC PANEL chloride 104 mmol/ L 96-107 Not Available [address], [address], 07/12/2024 11:01:05 07/12/20 24 07/12/2024 BASIC METAB OLIC PANEL anion gap 8.2 5.0-15 .0 Not Available [address], [address], 07/12/2024 11:01:05 07/12/20 24 07/12/2024 BASIC METAB OLIC PANEL CO2 31 mmol/ L 21-32 Not Available [address], [address], 07/12/2024 11:01:05 07/12/20 24 07/12/2024 BASIC METAB OLIC PANEL calcium 9.6 mg/dL 8.5-10 .3 Not Available [address], [address], 07/12/2024 11:01:05 07/12/20 24 07/12/2024 LIPID PANEL cholesterol 214 mg/dL <200 mg/dl Pawan able 200-2 39 mg/dl Borde rline High >240 mg/dl High Not Available [address], [address], 07/12/2024 11:01:06 07/12/20 24 07/12/2024 LIPID PANEL triglyceride s 150 mg/dL <150 mg/dL Vivien l 150-1 99 mg/dL Borde rline High 200-4 99 mg/dL High >500 mg/dL Very High Not Available [address], [address], 07/12/2024 11:01:06 07/12/20 24 07/12/2024 LIPID PANEL direct HDL 62 mg/dL <40 mg/dl - Major Risk for CHD >60 mg/dl - Negat adelita Risk for CHD Not Available [address], [address], 07/12/2024 11:01:06 07/12/20 24 07/12/2024 DIREC T [...] r is not neces genaro. Not Available [address], [address], 07/12/2024 11:01:07 07/12/20 24 07/12/2024 PSA PSA 2.17 NG/mL 0.00-4 .00 Not Available [address], [address], 07/12/2024 11:28:12 07/12/20 24 07/12/2024 TSH TSH 1.24 uIU/m L 0.50-6 .00 The Ameri can Colle ge of Endoc rinol ogy and Ameri can Thyro id Assoc iatio n recom mend goal TSH value s betwe en 0.4-4 .0 mIU/m L. Not Available [address], [address], 07/12/2024 11:46:57 08/15/2008/15/2024 BASIC METAB OLIC PANEL glucose 97 mg/dL 70-100 Not Available [address], [address], 08/15/2024 09:29:58 08/15/20 24 08/15/2024 BASIC METAB OLIC PANEL BUN 15 mg/dL 7-18 Not Available [address], [address], 08/15/2024 09:29:58 08/15/2008/15/2024 BASIC METAB OLIC PANEL creatinine 1.0 mg/dL 0.8-1. 3 Not Available [address], [address], 08/15/2024 09:29:58 08/15/20 24 08/15/2024 BASIC METAB OLIC PANEL B/C 15.0 ratio Not Available [address], [address], 08/15/2024 09:29:58 08/15/20 24 08/15/2024 BASIC METAB [...] be used in pregn alix. Not Available [address], [address], 08/15/2024 09:29:58 08/15/20 24 08/15/2024 BASIC METAB OLIC PANEL sodium 139 mmol/ L 136-14 5 Not Available [address], [address], 08/15/2024 09:29:58 08/15/20 24 08/15/2024 BASIC METAB OLIC PANEL potassium 4.3 mmol/ L 3.5-5. 1 Not Available [address], [address], 08/15/2024 09:29:58 08/15/20 24 08/15/2024 BASIC METAB OLIC PANEL chloride 102 mmol/ L 96-107 Not Available [address], [address], 08/15/2024 09:29:58 08/15/20 24 08/15/2024 BASIC METAB OLIC PANEL anion gap 4.8 5.0-15 .0 low Not Available [address], [address], 08/15/2024 09:29:58 08/15/20 24 08/15/2024 BASIC METAB OLIC PANEL CO2 32 mmol/ L 21-32 Not Available [address], [address], 08/15/2024 09:29:58 08/15/20 24 08/15/2024 BASIC METAB OLIC PANEL calcium 9.1 mg/dL 8.5-10 .3 Not Available [address], [address], 08/15/2024 09:29:58 08/15/20 24 08/15/2024 LIPID PANEL cholesterol 223 mg/dL <200 mg/dl Pawan able 200-2 39 mg/dl Borde rline High >240 mg/dl High Not Available [address], [address], 08/15/2024 09:29:58 08/15/20 24 08/15/2024 LIPID PANEL triglyceride s 131 mg/dL <150 mg/dL Vivien l 150-1 99 mg/dL Borde rline High 200-4 99 mg/dL High >500 mg/dL Very High Not Available [address], [address], 08/15/2024 09:29:58 08/15/20 24 08/15/2024 LIPID PANEL direct HDL 74 mg/dL <40 mg/dl - Major Risk for CHD >60 mg/dl - Negat adelita Risk for CHD Not Available [address], [address], 08/15/2024 09:29:58 08/15/20 24 08/15/2024 LDL - [...] r is not farrah lam. Not Available [address], [address], 08/15/2024 09:29:59 08/15/20 24 08/16/2024 TSH TSH 0.91 uIU/m L 0.50-6 .00 The Ameri can Colle ge of Endoc rinol ogy and Ameri can Thyro id Assoc iatio n recom mend goal TSH value s betwe en 0.4-4 .0 mIU/m L. Not Available [address], [address], 08/16/2024 14:01:04 Result Notes None recorded. Procedures Surgical History Date Name Laterality Status Provider Name and Address Organization Details Recorded Time 5 Dolly - EGD completed Lenin Alberto MD [address] [place] [address], [phone], [facility] 12/12/2024 08:09:14 4 Dolly - Colonoscopy completed Lenin Alberto MD [address] [place] [address], [phone], [facility] 06/05/2024 09:18:33 Imaging Results None recorded. Procedure [...] AT BEDTIME OR 8 HOURS BEFORE WASHING 2020 active Not Available Not Available Not Avai [...] as needed 2015 active not covered by [facility] e; pt pays for out of pocket [...] Not Available Not Available Not Available Vitals None Recorded Social History Question Answer Notes LastModified by Organization Details LastModified Time What Is Your Level Of Alcohol Consumption? [...] Or The Highest Degree You Have Received? 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 No With , Selene Robertson Information not available 05/06/2022 When Did You Quit Smoking? 16+yearssince lastcigarette Not Cigarettes - Cigars/chewing Tobacco Information not available 05/06/2022 Are There Any Guns Present In Your Home? Yes Secured Information not available 11/01/2014 Does The Patient Have Difficulty Speaking [place] Citizen? No Information not available 11/18/2015 Does The Patient Have Difficulty Reading [place] Citizen? No Information not available 11/18/2015 Patient Has [...] 11/18 14:18:05 Sister Disorder of thyroid gland Not available 11/18 14:18:05 Mother Disorder of thyroid gland Not available 11/18 14:18:05 Mother Depressive disorder Not available 11/18 14:18:05 Mother Malignant neoplastic disease 57 MM; also NOS Not available 11/18/2015 14:18:05 Sister Depressive disorder Not available 11/18 14:18:05 Sister Well adult Not avail able 11/18/2015 14:18:05 Maternal Grandfather Malignant tumor of prostate Not available 05/06 11:39:07 Notes:No family hx colon can cer, no CAD/stroke, no DM Medical History No medical history recorded. Past Encounters Encounter ID Performer Location Encounter Start Date Encounter Closed Date Diagnosis/Indication Diagnosis SNOMED-CT Code Diagnosis ICD10 Code Diagnosis Note [id number] [facility], OFFICE [address] [place] [address] 01/22/2009 14:08:11 01/25/2009 15:27:33 [id number] [facility] [address] [place] [facility] [place] [address] 02/15/2009 06:48:08 02/15/2009 07:14:46 [id number] , [facility], OFFICE [address] [facility] [place] [address] 12/16/2009 07:50:09 12/18/2009 15:32:24 [id number] , [facility], OFFICE [address] [facility] [place] [address] 01/20/2010 08:52:32 01/22/2010 10:29:19 [id number] , [facility], OFFICE [address] [facility] [place] [address] 02/21/2010 08:52:58 02/24/2010 15:46:10 [id number] , [facility], OFFICE [address] [facility] [place] [address] 08/25/2010 07:47:26 08/28/2010 15:32:30 [id number] [facility], OFFICE [address] [facility] [place] [address] 12/22/2010 11:56:54 12/25/2010 14:12:19 [id number] [facility], OFFICE [address] [place] [facility] [place] [address] 02/06/2011 08:02:50 02/10/2011 15:46:10 [id number] Physical Therapy, [facility] [address] [facility] [place] [facility] [place] [address] 02/16/2011 16:16:58 02/18/2011 10:18:40 [id number] Physical Therapy, [facility] [address] [place] [facility] [place] [address] 02/23/2011 16:17:35 02/24/2011 08:34:22 [id number] Physical Therapy, [facility] [address] [facility] [place] [address] 03/04/2011 16:18:49 03/05/2011 07:55:59 [id number] , [facility], OFFICE [address] [facility] [place] [address] 04/10/2011 07:49:48 04/15/2011 12:51:15 [id number] , [facility], OFFICE [address] [facility] [place] [address] 07/31/2011 09:36:10 07/31/2011 10:06:39 [id number] , [facility], OFFICE [address] [place] [facility] [address] 10/09/2011 07:47:58 10/09/2011 08:43:33 [id number] , [facility], OFFICE [address] [facility] [place] [address] 04/08/2012 07:57:19 04/08/2012 08:55:29 [id number] Heidi Frausto NP , [facility], OFFICE [address] [place] [facility] [place] [address] 10/14/2012 08:45:44 10/14/2012 09:35:30 [id number] Heidi Frausto NP , [facility], OFFICE [address] [facility] [place] [address] 04/14/2013 08:03:12 04/14/2013 09:01:35 [id number] , [facility], OFFICE [address] [facility] [place] [address] 10/20/2013 08:22:50 10/20/2013 09:12:53 [id number] Cher Richards LPN , [facility], OFFICE [address] [facility] [place] [address] 10/31/2014 14:22:17 10/31/2014 15:25:30 [id number] Mary Beth Bocanegra M.D. , [facility], OFFICE [address] [facility] [address] 01/08/2015 09:00:01 01/08/2015 09:38:06 [id number] Ella Leon , [facility], OFFICE [address] [facility] [place] [address] 03/11/2015 08:28:24 03/11/2015 09:12:11 [id number] Nedra Carlson , [facility], OFFICE [address] [facility] [place] [address] 11/18/2015 13:46:42 11/18/2015 14:51:50 [id number] Eliza Partida [facility], [facility] [address] [place] [address] 01/10/2016 07:01:12 01/10/2016 12:52:55 [id number] Nedra AYALA, [facility], OFFICE [address] [facility] [place] [address] 05/13/2016 08:06:05 05/13/2016 08:55:23 [id number] Nedra AYALA, [facility], OFFICE [address] [place] [facility] [place] [address] 11/24/2016 08:13:42 11/24/2016 09:22:22 [id number] Nedra AYALA, [facility], OFFICE [address] [facility] [place] [address] 05/24/2017 07:53:29 05/24/2017 08:26:08 [id number] Nedra AYALA, [facility], OFFICE [address] [facility] [place] [address] 12/20/2017 08:21:50 12/20/2017 09:14:36 [id number] MD LUCY Rehman, [facility], OFFICE [address] [facility] [place] [address] 03/04/2018 07:34:17 03/04/2018 07:56:04 [id number] Nedra AYALA, [facility], OFFICE [address] [facility] [place] [address] 06/13/2018 07:49:50 06/13/2018 08:23:30 [id number] Nedra AYALA [facility], OFFICE [address] [facility] [place] [address] 01/09/2019 10:48:23 01/09/2019 11:21:22 [id number] LUCY [facility], OFFICE [address] [facility] [place] [address] 03/02/2019 07:50:45 03/03/2019 09:18:33 [id number] ROXANA Fay, [facility], OFFICE [address] [facility] [place] [address] 06/06/2019 14:59:06 06/06/2019 15:22:27 [id number] Nedra AYALA, [facility], OFFICE [address] [facility] [place] [address] 06/13/2019 11:16:00 06/13/2019 12:09:45 [id number] Nedra AYALA, [facility], OFFICE [address] [facility] [place] [address] 08/14/2019 07:55:24 08/14/2019 08:36:44 [id number] TERA Miguel, [facility], OFFICE [address] [facility] [place] [address] 02/05/2020 07:50:54 02/05/2020 08:50:11 [id number] Nedra AYALA, [facility], OFFICE [address] [place] [facility] [place] [address] 08/19/2020 10:08:15 08/21/2020 17:40:05 [id number] Gabriella Munoz RN [facility], [address] [address] 01/27/2021 07:19:10 01/27/2021 12:19:13 [id number] Nedra AYALA, [facility], OFFICE [address] [facility] [place] [facility] [place] [address] 03/03/2021 08:28:32 03/04/2021 13:46:21 [id number] Nedra AYALA, [facility], OFFICE [address] [facility] [place] [address] 09/04/2021 07:44:10 09/08/2021 10:47:26 [id number] Kacey Nice, PT Physical Therapy, [facility] [address] [facility] [place] [address] 10/03/2021 07:51:03 10/06/2021 07:45:49 [id number] Kacey Nice, PT Physical Therapy, [facility] [address] [facility] [place] [address] 10/06/2021 07:27:51 10/06/2021 08:29:10 [id number] Kacey Nice, PT Physical Therapy, [facility] [address] [facility] [place] [address] 10/10/2021 08:24:41 10/10/2021 09:15:11 [id number] Kacey Nice, PT Physical Therapy, [facility] [address] [facility] [place] [facility] [place] [address] 10/13/2021 08:21:58 10/13/2021 09:15:09 [id number] Kacey Nice, PT Physical Therapy, [facility] [address] [facility] [place] [facility] [place] [address] 10/20/2021 16:22:46 10/21/2021 13:12:09 [id number] Nedra AYALA, [facility], OFFICE [address] [facility] [place] [facility] [place] [address] 12/01/2021 11:57:30 12/08/2021 09:36:40 [id number] Nedra AYALA, [facility], OFFICE [address] [facility] [place] [facility] [place] [address] 01/26/2022 10:03:43 02/03/2022 12:47:02 [id number] Nedra AYALA, [facility], OFFICE [address] [facility] [place] [facility] [place] [address] 05/06/2022 10:47:52 05/06/2022 11:51:50 [id number] Nedra AYALA, [facility], OFFICE [address] [facility] [place] [address] 11/16/2022 07:59:48 11/16/2022 08:47:23 [id number] MD LUCY Rehman, [facility], OFFICE [address] [facility] [place] [facility] [place] [address] 08/19/2023 14:44:06 08/19/2023 16:07:22 [id number] MD LUCY Rehman, [facility], OFFICE [address] [facility] [place] [address] 08/20/2023 12:36:43 08/21/2023 18:56:04 [id number] MD LUCY Rehman, [facility], OFFICE [address] [facility] [place] [address] 01/03/2024 08:04:56 01/04/2024 10:50:15 [id number] Mary Trujillo RN Endoscopy , [address] [address] 06/05/2024 07:17:44 06/05/2024 10:18:22 [id number] Meri Bond MD , [facility], OFFICE [address] [place] [address] 08/21/2024 13:50:32 08/21/2024 14:54:05 [id number] Katherine Powers RN Endoscopy , [address] [address] 12/12/2024 06:38:43 12/12/2024 12:00:45 Health Concerns Section Related Observation LastModified by Organization Detai ls LastModified Time None Recorded Concern Status LastModified by Organization Details LastModified Time None Recorded Advance Directives Directive None Recorded Payers Encounter Date Sequence Insurance Name Policy Number Policy Joyner Covered Member ID Joyner Member ID Guarantor Name 11/16/2022 2 [place] Selene Robertson [id number] Jairo Robertson 11/16/2022 1 [place] Jairo E Robertson [id number] Jairo Robertson 08/19/2023 2 [place] Selene Robertson [id number] Jairo Robertson 08/19/2023 1 [place] Jairo E Robertson [id number] 2 Jairo Robertson 08/20/2023 2 [place] Selene Robertson [id number] Jairo Robertson 08/20/2023 1 [place] Jairo E Robertson [id number] 2 Jairo Robertson 01/03/2024 2 [place] Selene Robertson [id number] Jairo Robertson 01/03/2024 1 [place] Jairo E Robertson [id number] 2 Jairo Robertson 08/21/2024 2 [place] Selene Robertson [id number] [facility] Robertson 08/21/2024 1 [place] Jairo Robertson [id number] 2 Jairo Robertson
== END 2024-12-14 11:47 | disposition home or self-care (01) ==
PROVIDERS: PCP Family Medicine; Visit Provider Urology
DX: R35.0 Frequency of micturition (principal); N32.81 Overactive bladder
CPT/HCPCS: 52000; 99214

== ENCOUNTER → 2024-12-14 10:46 | Outpatient (BNVA) | payer MEDICARE, BC, SELFPAY | PROVIDERS: PCP Family Medicine; Visit Provider Urology | DX: N32.81 Overactive bladder (principal); R35.0 Frequency of micturition | CPT/HCPCS: 52000; 81003; 99212 ==

== ENCOUNTER 2025-02-16 08:54 | Outpatient (AMB) | payer MEDICARE, BC, SELFPAY ==
--- NOTE | 2025-02-16 08:54 | A.OFFVIS_ITS ---
Intake Visit Reasons: 2m/OAB(SET) Intake Note: Pt presents to the office today as a telehealth for a 2 month follow up/OAB. Allergies No Known Allergies Allergy (Verified 02/16/25 08:54) HPI Comments Details: Jairo is a pleasant male. He is a patient of Dr. Downs. He is seen for the following urologic conditions - lower urinary tract symptoms - subclinical interstitial cystitis Telemedicine Evaluation 15 min Consultation [employer] Vincent Video Prior cystoscopy Bladder Has glomerulation consistent with subclinical interstitial cystitis Discussed diet treat triggers Had failed on anticholinergic secondary to constipation. Has failed 2 medications. Lower urinary tract symptoms Primary issue is urinary urgency and frequency Nocturia x4 with disrupted sleep Previously been treated with oxybutynin but cause constipation and prior history of hemorrhoids Trial of Toviaz with constipation Previous procedure includes Rezum 12/[facility] Medical History Acquired trigger finger Atopic dermatitis Benign prostate hyperplasia Gastroesophageal reflux Essential hypertension Mixed hyperlipidemia Hypothyroidism Multiple benign melanocytic nevi Adenomatous colon polyp Onychomycosis Review of Systems Const All systems reviewed & are unremarkable except as noted in HPI and below Reports no additional complaints Resp Reports no additional complaints GI Reports no additional complaints Reports as per HPI Musc Reports no additional complaints Physical Exam Telemedicine evaluation Appropriate responses Regular breathing rate and rhythm HEENT Head: Yes normal to inspection Ears: hearing grossly normal bilaterally Eyes General: appearance normal, both eyes and all related structures Neck Neck: Yes normal visual inspection Chest Chest palpation & inspection: normal inspection of the chest Resp Effort & Inspection: normal respiratory effort and able to speak in complete sentences Telehealth Telehealth Telehealth Platform: [employer] Location of provider rendering services: practice address Location of patient: address on file Patient Identification confirmed using: Name, : Yes Telehealth method: video Patient verbally consented to treatment: Yes Patient verbally consented to billing insurance company: Yes Patient informed of any privacy concerns related to visit: Yes Minutes spent on Phone/Video with Pt.: 15 Assessment & Plan Assessment & Plan (1) Chronic interstitial cystitis: Code(s): N30.10 - Interstitial cystitis (chronic) without hematuria Category: Medical Plan Trial triple therapy Medications: New amitriptyline 25 mg PO BEDTIME 30 days 30 tabs 0RF N30.10 - Interstitial cystitis (chronic) without hematuria, N32.81 - Overactive bladder gabapentin 300 mg PO BEDTIME 30 days 30 caps 0RF N32.81 - Overactive bladder, R23.2 - Flushing, T50.905A - Adverse effect of unspecified drugs, medicaments and biological substances, initial encounter naproxen (Naprosyn) 500 mg PO Q12H 30 days PRN 60 tabs 0RF pain N32.81 - Overactive bladder, S39.91XA - Unspecified injury of abdomen, initial encounter Patient Instructions: This note is constructed using voice recognition software. While every effort has been made to ensure accuracy head of ethics and compliance errors may have been included. Imaging studies, laboratory and physical exam results were discussed and reviewed in detail. No major barriers to patient understanding were identified. An opportunity to ask questions regarding the treatment plan was provided. All questions were answered. The patient expressed understanding and agreement with the above treatment plan. The patient is aware they should contact our office by phone for worsening of their current condition or the appearance of new urologic symptoms. Compliance is encouraged with any medications and followup testing that is ordered. It is a privilege to participate in the urologic care of your patient. If you have any questions or concerns regarding treatment for the above conditions, or other urologic issues, please do not hesitate to contact me. The office telephone contact is [phone]. Sincerely, Dr Igor García MD, [facility] - Urology Compassionate Specialist Care for the Genitourinary System Coding Level of Care Code Tele Est Pt Level 4 (14374) Complex EM visit Add On G2211 Diagnoses Chronic interstitial cystitis N30.10
== END 2025-02-16 09:18 | disposition home or self-care (01) ==
LOC: HO.HUSH 08:54
PROVIDERS: PCP Family Medicine; Visit Provider Urology
DX: N30.10 Interstitial cystitis (chronic) without hematuria (principal)
CPT/HCPCS: 99214; G2211

== ENCOUNTER 2025-04-20 09:09 | Outpatient (AMB) | payer MEDICARE, BC, SELFPAY ==
--- NOTE | 2025-04-20 09:13 | MHC.OFFVIS ---
Intake Visit Reasons: 2m follow up Intake Note: Patient is present for 2M F/U Urology Medication:NAPROXEN,AMITRIPTYLINE,GABAPENTIN Antibiotic Allergy:NONE Blood Thinner:NONE Glaze Supervisor Required: No Allergies No Known Allergies Allergy (Verified 04/20/25 09:14) HPI Comments Details: Jairo is a pleasant male. He is a patient of Dr. Downs. He is seen for the following urologic conditions - lower urinary tract symptoms - subclinical interstitial cystitis Telemedicine Evaluation 15 min Consultation [employer] Vincent Video Prior cystoscopy Bladder has glomerulation consistent with subclinical interstitial cystitis Good response to triple therapy Some grogginess in the morning Will reduce amitriptyline dosing Discussed diet treat triggers Had failed on anticholinergic secondary to constipation. Has failed 2 medications. Interstitial cystitis Subclinical picture Did respond to overnight triple therapy Lower urinary tract symptoms Primary issue is urinary urgency and frequency Nocturia x4 with disrupted sleep Previously been treated with oxybutynin but cause constipation and prior history of hemorrhoids Trial of Toviaz with constipation Previous procedure includes Rezum 12/21 [facility] Medical History Acquired trigger finger Atopic dermatitis Benign prostate hyperplasia Gastroesophageal reflux Essential hypertension Mixed hyperlipidemia Hypothyroidism Multiple benign melanocytic nevi Adenomatous colon polyp Onychomycosis Review of Systems Const All systems reviewed & are unremarkable except as noted in HPI and below Reports no additional complaints Resp Reports no additional complaints GI Reports no additional complaints Reports as per HPI Musc Reports no additional complaints Physical Exam Telemedicine evaluation Appropriate responses Regular breathing rate and rhythm HEENT Head: Yes normal to inspection Ears: hearing grossly normal bilaterally Eyes General: appearance normal, both eyes and all related structures Neck Neck: Yes normal visual inspection Chest Chest palpation & inspection: normal inspection of the chest Resp Effort & Inspection: normal respiratory effort and able to speak in complete sentences Telehealth Telehealth Telehealth Platform: [employer] Location of provider rendering services: practice address Location of patient: address on file Patient Identification confirmed using: Name, : Yes Telehealth method: video Patient verbally consented to treatment: Yes Patient verbally consented to billing insurance company: Yes Patient informed of any privacy concerns related to visit: Yes Minutes spent on Phone/Video with Pt.: 15 Assessment & Plan Assessment & Plan (1) Lower urinary tract symptoms: Code(s): R39.9 - Unspecified symptoms and signs involving the genitourinary system Category: Medical (2) Chronic interstitial cystitis: Code(s): N30.10 - Interstitial cystitis (chronic) without hematuria Category: Medical Plan Six-month follow Patient Instructions: This note is constructed using voice recognition software. While every effort has been made to ensure accuracy tannery worker errors may have been included. Imaging studies, laboratory and physical exam results were discussed and reviewed in detail. No major barriers to patient understanding were identified. An opportunity to ask questions regarding the treatment plan was provided. All questions were answered. The patient expressed understanding and agreement with the above treatment plan. The patient is aware they should contact our office by phone for worsening of their current condition or the appearance of new urologic symptoms. Compliance is encouraged with any medications and followup testing that is ordered. It is a privilege to participate in the urologic care of your patient. If you have any questions or concerns regarding treatment for the above conditions, or other urologic issues, please do not hesitate to contact me. The office telephone contact is [phone]. Sincerely, Dr Igor García MD, [facility] - Urology Compassionate Specialist Care for the Genitourinary System Coding Level of Care Code Tele Est Pt Level 3 (54287) Complex EM visit Add On G2211 Diagnoses Lower urinary tract symptoms R39.9 Chronic interstitial cystitis N30.10
--- OUTSIDE RECORDS SUMMARY | 2025-04-20 09:25 | XMS_ITS | Data Portability ---
Author Organization [facility], FP, EHC, OFFICE Address [address] [place] [address] Care Team Providers Care Scrap Charger Name Role Phone RADHA NEDRA Primary Care Provider DONNELL PIERCE Urologist ROMMEL GARCÍA Urologist Assessment Encounter Date Assessment Date Assessment [...] year is: [email or web address] Not available 08/21/2024 20:05:57 02/20/2025 02/20/2025 We reviewed your chronic medical conditions and updated your plan for management. Please review instructions below. We have discussed your personal goals and discussed how to reach your goals. Please reach out to us via the Portal or phone if you have questions about your chronic conditions or if you or your caregivers require assistance in meeting your goals. Please visit our website [employer] for more patient resources. As part of your care plan, we will help coordinate your ongoing medical needs, arrange for durable medical equipment, renew prescriptions and necessary prior authorizations, facilitate getting referrals and collaborating with specialist, referrals for VNA services. melo Not available 02/20/2025 08:21:46 Plan of Treatment Reminders Order Date Submit Date Provider Last Modified By Organization Details Last Modified Time Details Appointments LAB Follow-Up 2024 07:00A M [facility] Lab Not available Not available Not available Wellness Visit 30 2024 08:30A M Meri Bond MD Not available Not available Not available Lab HbA1c (hemoglob in A1c), blood 2024 025 [facility], [address] [place] [address], [id number], 02/20/2025 10:24:44 BMP, serum or plasma 2023 024 [facility], [address] [place] [address], [id number], 01/03/2024 12:12:45 Referral gastroent erologist referral - esophagea l obstructi on due to food impaction in May continues to have issues but not to this extent, persisten t x many years. 2023 024 AMAURY Ward MD, [address] [place], [address], 10/25/2024 14:23:23 urologist referral - BPH did aquablati on and still with symptoms 2023 024 AMAURY García MD, [address] [place] [address], [address], 10/15/2024 23:58:41 Procedures None recorded. Surgeries None recorded. Imaging None recorded. Medication Orders None recorded. Patient TargetsNo targets recorded. Patient Instructions Encounter Date Encounter Id Patient Instructions Last Modified By Organization Details Last Modified Time 08/19/2023 [id number] preventing falls: care instructions [email or web address] Not available [...] food sources daily, * Take vitamin D [id number] units daily to help absorption of calcium into your bones * Use sunblock consistently * Review the website: [facility] to get more information on the Mediterranean diet - a heart healthy eating plan * Immunizations up to date; COVID vaccine booster recommended. Prevnar 20 at the pharmacy. * The current guidelines from the [place] [employer] is moderate aerobic physical activity [...] 1500 mg of sodium per day. The [place] [employer] (AHA) recommends 30 minutes of moderate physical activity 5 days a week. A Mediterranean type of diet and a plant based diet is recommended, review the website: [facility]org. [email or web address] Not available 08/19/2023 19:38:55 01/03/2024 [id number] After a discussion of treatment and medication [...] 1500 mg of sodium per day. The [place] [employer] (AHA) recommends 30 minutes of moderate physical activity 5 days a week. A Mediterranean type of diet and a plant based diet is recommended, review the website: [facility]. 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 melo Not available 08/21/2024 14:17:54 Reason for Referral Urologist Referral for Benig n prostatic hyperplasia BPH did aquablation and still with symptoms Referring Physician: Meri Bond, Family Medicine, Encounter Date: 08/21/2024 Furniture Technician Referral for Esophageal dysphagia esophageal obstruction due to food impaction in May continues to have issues but not to this extent, persistent x many years. Referring Physician: Meri Bond, Family Medicine, Encounter Date: 08/21/2024 Results Created Date Observation Date Name Description Value Unit Range Abnormal Flag Note LastModifiedBy Organization Detail LastModifiedTime 01/03/20 24 01/03/2024 BASIC METAB OLIC PANEL glucose 69 mg/dL 70-100 low Not Available [address], [address], 01/03/2024 12:12:45 01/03/20 24 01/03/2024 BASIC METAB OLIC PANEL BUN 28 mg/dL 7-18 high Not Available [address], [address], 01/03/2024 12:12:45 01/03/20 24 01/03/2024 BASIC METAB OLIC PANEL creatinine 1.0 mg/dL 0.8-1. 3 Not Available [address], [address], 01/03/2024 12:12:45 01/03/20 24 01/03/2024 BASIC METAB OLIC PANEL B/C 28.0 ratio Not Available [address], [address], 01/03/2024 12:12:45 01/03/20 24 01/03/2024 BASIC METAB [...] be used in pregn alix. Not Available [address], [address], 01/03/2024 12:12:45 01/03/20 24 01/03/2024 BASIC METAB OLIC PANEL sodium 144 mmol/ L 136-14 5 Not Available [address], [address], 01/03/2024 12:12:45 01/03/20 24 01/03/2024 BASIC METAB OLIC PANEL potassium 4.4 mmol/ L 3.5-5. 1 Not Available [address], [address], 01/03/2024 12:12:45 01/03/20 24 01/03/2024 BASIC METAB OLIC PANEL chloride 106 mmol/ L 96-107 Not Available [address], [address], 01/03/2024 12:12:45 01/03/20 24 01/03/2024 BASIC METAB OLIC PANEL anion gap 9.2 5.0-15 .0 Not Available [address], [address], 01/03/2024 12:12:45 01/03/20 24 01/03/2024 BASIC METAB OLIC PANEL CO2 29 mmol/ L 21-32 Not Available [address], [address], 01/03/2024 12:12:45 01/03/20 24 01/03/2024 BASIC METAB OLIC PANEL calcium 9.0 mg/dL 8.5-10 .3 Not Available [address], [address], 01/03/2024 12:12:45 07/12/2007/12/2024 BASIC METAB OLIC PANEL glucose 75 mg/dL 70-100 Not Available [address], [address], 07/12/2024 11:01:05 07/12/20 24 07/12/2024 BASIC METAB OLIC PANEL BUN 16 mg/dL 7-18 Not Available [address], [address], 07/12/2024 11:01:05 07/12/2007/12/2024 BASIC METAB OLIC PANEL creatinine 0.9 mg/dL 0.8-1. 3 Not Available [address], [address], 07/12/2024 11:01:05 07/12/20 24 07/12/2024 BASIC METAB OLIC PANEL B/C 17.8 ratio Not Available [address], [address], 07/12/2024 11:01:05 07/12/2007/12/2024 BASIC METAB OLIC PANEL GFR >=60ML /MIN [...] be used in pregn alix. Not Available [address], [address], 07/12/2024 11:01:05 07/12/20 24 07/12/2024 BASIC METAB OLIC PANEL sodium 143 mmol/ L 136-14 5 Not Available [address], [address], 07/12/2024 11:01:05 07/12/20 24 07/12/2024 BASIC METAB OLIC PANEL potassium 4.5 mmol/ L 3.5-5. 1 Not Available [address], [address], 07/12/2024 11:01:05 07/12/20 24 07/12/2024 BASIC METAB OLIC PANEL chloride 104 mmol/ L 96-107 Not Available [address], [address], 07/12/2024 11:01:05 07/12/20 24 07/12/2024 BASIC METAB OLIC PANEL anion gap 8.2 5.0-15 .0 Not Available [address], [address], 07/12/2024 11:01:05 07/12/20 24 07/12/2024 BASIC METAB OLIC PANEL CO2 31 mmol/ L 21-32 Not Available [address], [address], 07/12/2024 11:01:05 07/12/20 24 07/12/2024 BASIC METAB OLIC PANEL calcium 9.6 mg/dL 8.5-10 .3 Not Available [address], [address], 07/12/2024 11:01:05 07/12/20 24 07/12/2024 LIPID PANEL cholesterol 214 mg/dL <200 mg/dl Pawan able 200-2 39 mg/dl Borde rline High >240 mg/dl High Not Available [address], [address], 07/12/2024 11:01:06 07/12/20 24 07/12/2024 LIPID PANEL triglyceride s 150 mg/dL <150 mg/dL Vivien l 150-1 99 mg/dL Borde rline High 200-4 99 mg/dL High >500 mg/dL Very High Not Available [address], [address], 07/12/2024 11:01:06 07/12/20 24 07/12/2024 LIPID PANEL direct HDL 62 mg/dL <40 mg/dl - Major Risk for CHD >60 mg/dl - Negat adelita Risk for CHD Not Available [address], [address], 07/12/2024 11:01:06 07/12/20 24 07/12/2024 DIREC T LDL direct LDL 111 mg/dL RISK CATEG ORY LDL GOAL _ CHD or CHD Risk Equiv alent s <100 mg/dl (10-y ear risk >20%) 2+ Risk Facto rs <130 mg/dl (10-y ear risk <= 20%) 0-1 Risk Facto r? <160 mg/dl ? Almos t all peopl e with 0-1 risk facto r have a 10 year risk <10%, thus 10 year risk asses ment in peopl e with 0-1 risk facto r is not neces genaro. Not Available [address], [address], 07/12/2024 11:01:07 07/12/20 24 07/12/2024 PSA PSA 2.17 NG/mL 0.00-4 .00 Not Available [address], [address], 07/12/2024 11:28:12 07/12/20 24 07/12/2024 TSH TSH 1.24 uIU/m L 0.50-6 .00 The Ameri can Colle ge of Endoc rinol ogy and Ameri can Thyro id Assoc iatio n recom mend goal TSH value s betwe en 0.4-4 .0 mIU/m L. Not Available [address], [address], 07/12/2024 11:46:57 08/15/2008/15/2024 BASIC METAB OLIC PANEL glucose 97 mg/dL 70-100 Not Available [address], [address], 08/15/2024 09:29:58 08/15/20 24 08/15/2024 BASIC METAB OLIC PANEL BUN 15 mg/dL 7-18 Not Available [address], [address], 08/15/2024 09:29:58 08/15/2008/15/2024 BASIC METAB OLIC PANEL creatinine 1.0 mg/dL 0.8-1. 3 Not Available [address], [address], 08/15/2024 09:29:58 08/15/2008/15/2024 BASIC METAB OLIC PANEL B/C 15.0 ratio Not Available [address], [address], 08/15/2024 09:29:58 08/15/2008/15/2024 BASIC METAB OLIC PANEL GFR >=60ML /MIN [...] be used in pregn alix. Not Available [address], [address], 08/15/2024 09:29:58 08/15/20 24 08/15/2024 BASIC METAB OLIC PANEL sodium 139 mmol/ L 136-14 5 Not Available [address], [address], 08/15/2024 09:29:58 08/15/20 24 08/15/2024 BASIC METAB OLIC PANEL potassium 4.3 mmol/ L 3.5-5. 1 Not Available [address], [address], 08/15/2024 09:29:58 08/15/20 24 08/15/2024 BASIC METAB OLIC PANEL chloride 102 mmol/ L 96-107 Not Available [address], [address], 08/15/2024 09:29:58 08/15/20 24 08/15/2024 BASIC METAB OLIC PANEL anion gap 4.8 5.0-15 .0 low Not Available [address], [address], 08/15/2024 09:29:58 08/15/20 24 08/15/2024 BASIC METAB OLIC PANEL CO2 32 mmol/ L 21-32 Not Available [address], [address], 08/15/2024 09:29:58 08/15/20 24 08/15/2024 BASIC METAB OLIC PANEL calcium 9.1 mg/dL 8.5-10 .3 Not Available [address], [address], 08/15/2024 09:29:58 08/15/20 24 08/15/2024 LIPID PANEL cholesterol 223 mg/dL <200 mg/dl Pawan able 200-2 39 mg/dl Borde rline High >240 mg/dl High Not Available [address], [address], 08/15/2024 09:29:58 08/15/20 24 08/15/2024 LIPID PANEL triglyceride s 131 mg/dL <150 mg/dL Vivien l 150-1 99 mg/dL Borde rline High 200-4 99 mg/dL High >500 mg/dL Very High Not Available [address], [address], 08/15/2024 09:29:58 08/15/20 24 08/15/2024 LIPID PANEL direct HDL 74 mg/dL <40 mg/dl - Major Risk for CHD >60 mg/dl - Negat adelita Risk for CHD Not Available [address], [address], 08/15/2024 09:29:58 08/15/20 24 08/15/2024 LDL - CALCU LATED LDL - calculated 123 RISK CATEG ORY LDL GOAL _ CHD or CHD Risk Equiv alent s <100 mg/dl (10-y ear risk >20%) 2+ Risk Facto rs <130 mg/dl (10-y ear risk <= 20%) 0-1 Risk Facto r? <160 mg/dl ? Almos t all peopl e with 0-1 risk facto r have a 10 year risk <10%, thus 10 year risk asses ment in peopl e with 0-1 risk facto r is not farrah lam. Not Available [address], [address], 08/15/2024 09:29:59 08/15/20 24 08/16/2024 TSH TSH 0.91 uIU/m L 0.50-6 .00 The Ameri can Colle ge of Endoc rinol ogy and Ameri can Thyro id Assoc iatio n recom mend goal TSH value s betwe en 0.4-4 .0 mIU/m L. Not Available [facility] [address] [facility], [place], [address], 08/16/2024 14:01:04 12/12/19 25 12/13/2024 ANATO MARYBETH PATHO LOGY path report [facility] [address] [facility] [place] [facility] [place] [address] Lab Direc tor: Cr best MD Surgi james Patho logy Repor t Acces cally #: [id number] FINAL PATHO LOGIC DIAGN OSIS: DISTA L ESOPH ROLAND, BIOPS Y: No patho logic abnor malit ies Meera ctron icall y Brandy d Out By Lumin latha bernard MD By his/h er signmichela wayne above , the patho logis t liste d as joel garcia the Final Diagn osis certi fies that he/sh e has perso donna revie wed this case and confi rmed or corre cted the diagn osis. [facility] HISTO RY Dysph agia SPECI MENS SUBMI TTED: A: DISTA L ESOPH ROLAND, BIOPS Y GROSS DESCR IPTIO N DISTA L ESOPH ROLAND, BIOPS Y: Recei rajiv in forma nicole are 2 irreg ular bedoya-p ink soft tissu e fragm ents measu ring on avera ge 0.4 x 0.3 x 0.1 cm which are submi tted in toto in a singl e casse tte label ed A1. Gross ed by: Vinnie yun, MHS, PA( CP) DN 2024 Gross ing Staff : [id number] Waldemar coello Name: HORACIO ORTIZ : [birth year] (Age: 69) Sex: M 5 Insti tutio n: [facility] Locat ion: [facility] Date of Opera tion: 2024 Date of Acces cally: 2024 Repor shane: 2024 11:48 Resul ts To: Lenin dueñas MD, AB Verónica Thomas MD, BS [place] [facility] Medic al Speci altie s Not Available [facility] (Outpatient) [address] [place] [address], [address], 12/13/2024 13:15:29 02/14/20 25 02/14/2025 BASIC METAB OLIC PANEL glucose 105 mg/dL 70-100 high Not Available [address], [address], 02/14/2025 14:26:31 02/14/20 25 02/14/2025 BASIC METAB OLIC PANEL BUN 24 mg/dL 7-18 high Not Available [address], [address], 02/14/2025 14:26:31 02/14/20 25 02/14/2025 BASIC METAB OLIC PANEL creatinine 0.9 mg/dL 0.8-1. 3 Not Available [address], [address], 02/14/2025 14:26:31 02/14/20 25 02/14/2025 BASIC METAB OLIC PANEL B/C 26.7 ratio Not Available [address], [address], 02/14/2025 14:26:31 02/14/20 25 02/14/2025 BASIC METAB OLIC PANEL GFR >=60ML /MIN [...] child kenny (age <18 years ), and leah d not be used in pregn alix. Not Available [address], [address], 02/14/2025 14:26:31 02/14/20 25 02/14/2025 BASIC METAB OLIC PANEL sodium 146 mmol/ L 136-14 5 high Not Available [address], [address], 02/14/2025 14:26:31 02/14/20 25 02/14/2025 BASIC METAB OLIC PANEL potassium 4.6 mmol/ L 3.5-5. 1 Not Available [address], [address], 02/14/2025 14:26:31 02/14/20 25 02/14/2025 BASIC METAB OLIC PANEL chloride 106 mmol/ L 96-107 Not Available [address], [address], 02/14/2025 14:26:31 02/14/20 25 02/14/2025 BASIC METAB OLIC PANEL anion gap 9.3 5.0-15 .0 Not Available [address], [address], 02/14/2025 14:26:31 02/14/20 25 02/14/2025 BASIC METAB OLIC PANEL CO2 31 mmol/ L 21-32 Not Available [address], [address], 02/14/2025 14:26:31 02/14/20 25 02/14/2025 BASIC METAB OLIC PANEL calcium 10.0 mg/dL 8.5-10 .3 Not Available [address], [address], 02/14/2025 14:26:31 02/14/20 25 02/14/2025 LIPID PANEL cholesterol 230 mg/dL <200 mg/dl Pawan able 200-2 39 mg/dl Borde rline High >240 mg/dl High Not Available [address], [address], 02/14/2025 14:26:32 02/14/20 25 02/14/2025 LIPID PANEL triglyceride s 119 mg/dL <150 mg/dL Vivien l 150-1 99 mg/dL Borde rline High 200-4 99 mg/dL High >500 mg/dL Very High Not Available [address], [address], 02/14/2025 14:26:32 02/14/2002/14/2025 LIPID PANEL direct HDL 62 mg/dL <40 mg/dl - Major Risk for CHD >60 mg/dl - Negat adelita Risk for CHD Not Available [address], [address], 02/14/2025 14:26:32 02/14/2002/14/2025 LDL - CALCU LATED LDL - calculated 144 RISK CATEG ORY LDL GOAL _ CHD or CHD Risk Equiv alent s <100 mg/dl (10-y ear risk >20%) 2+ Risk Facto rs <130 mg/dl (10-y ear risk <= 20%) 0-1 Risk Facto r? <160 mg/dl ? Almos t all peopl e with 0-1 risk facto r have a 10 year risk <10%, thus 10 year risk asses ment in peopl e with 0-1 risk facto r is not neces genaro. Not Available [address], [address], 02/14/2025 14:26:33 02/21/20 25 02/20/2025 HGB A1C hemoglobin A1C 6.1 % 4.8-6. 0 high Goal: <7% in Patie nts with Diabe mart An A1c betwe en 5.7-6 .4% is ident ified as pre-d iabet es and sugge sts risk for progr essio n to diabe mart Two a1c value s of 6.5% or highe r is consi stent with a diagn osis of diabe mart but may need furth er confi rmati on Not Available [address], [address], 02/20/2025 10:24:44 02/21/2002/20/2025 HGB A1C estimated average glucose 128.4 mg/dL Not Available [address], [address], 02/20/2025 10:24:44 Result Notes None recorded. Procedures Surgical History Date Name Laterality Status Provider Name and Address Organization Details Recorded Time 5 Dolly - EGD completed Lenin Alberto MD [address] [place] [address], [id number] [facility] [place]12/[place]24 08:09:14 4 Dolly - Colonoscopy completed Lenin Alberto MD [address] [place] [address], [phone] [facility] [place]/05/[place]24 09:18:33 Imaging Results None recorded. Procedure [...] TAKE 1 TABLET BY MOUTH EVERY DAY 2024 active Not Available Not Available Not Avai [...] AT BEDTIME OR 8 HOURS BEFORE WASHING 02/20 completed Not Available Not Available Not Available amitripty line 25 mg tablet Take 1 tablet every day by oral route at bedtime. active Not Available Not Available No t Available lorazepam 0.5 mg tablet Take 1/2 tab [...] PRN Not Available Not Available Not Available gabapenti n 300 mg capsule Take 1 capsule every day by oral route at bedtime. active Not Available Not Available No t Available omeprazol e 20 mg capsule,d elayed release Take 1 capsule every day by oral route. active Not Available Not Available No t Available diltiazem CD 120 mg capsule,e xtended release 24 hr TAKE 1 CAPSULE BY MOUTH EVERY DAY 2024 active Not Available Not Available Not Avai lable levothyro xine 200 mcg tablet TAKE 1 TABLET BY MOUTH EVERY DAY 2024 active Not Available Not Available Not Avai lable Naprosyn 500 mg tablet Take 1 tablet twice a day by oral route as needed. active Not Available Not Available No t Available lisinopri l 40 mg tablet TAKE 1 TABLET BY MOUTH EVERY DAY 2024 active Not Available Not Available Not Avai [...] Available Not Available Not Available famotidin e 02/20 completed otc Not Available Not Available Not Available Viagra active Not Available Not Availa ble Not Available oxybutyni n 02/20 completed Pt unsure of dose will 08/21/24 as Not Available Not Available Not Available Fish Oil 1,000 mg capsule active daily Not Available Not Available Not Available Vitals None Recorded Social History Question Answer Notes LastModified by Organizat ion Details LastModified Time Do You Wear A Helmet When Biking? No N/a Information not available 11/18/2015 What Is Your Level Of Caffeine Consumption? Moderate 1-2 Cups Daily Information not available 11/18/2015 How Much Tobacco Do You Chew? None Former Chewing Tobacco User, Former Cigar csears Information not available 01/22/2009 What Type Of Diet Are You Following? REGULAR Information not available 11/01/2014 Which Illicit Or Recreational Drugs Have You Used? None Information not available 11/18/2015 What Is The Highest Grade Or Level Of School You Have Completed Or The Highest Degree You Have Received? [id number] [employer] Information not available 05/06/2022 Have There Been Any Changes To Your Family Or Social Situation? No With , Selene Ortiz Information not available 05/06/2022 When Did You Quit Smoking? 15+yearssin celastcigar ette Not Cigarettes - Cigars/chewing Tobacco Information not available 05/06/2022 Are There Any Guns Present In Your Home? Yes Secured Information not available 11/01/2014 Patient Has Health Care Proxy Signed And In Chart Yes Spouse [email or web address] Information not available 03/04/2021 MOLST Form Signed And In Chart 08/19/2023 [email or web address] Information not available 08/20/2023 CCM Consent Discussion 08/21/2024 [email or web address] Information not available 09/12/2024 What Was The Date Of Your Most Recent Tobacco Screening? 02/20/2025 Information not available 02/20/2025 How Many Children Do You Have? 3 Born '78, '84, '86 Estranged From Them And Hasn't Seen 2 Of His Grandchildren Information not available 05/06/2022 Are There Any Occupational Health Risks Where You Work? None Information not available 11/18/2015 What Is Your Current Pack Years? 10packyears Information not available 05/06/2022 What Is Your Relationship Status? Selene Ortiz Information not available 05/06/2022 Do You Use Your Seat Belt Or Car Seat Routinely? Yes Information not available 05/06/2022 Are You Sexually Active? Yes [id number] Information not available 10/15/2011 Do You Have Smoke And Carbon Monoxide Detectors In Your Home? Yes Information not available 05/06/2022 At What Age Did You Start Smoking Tobacco? 19 Information not available 05/06/2022 Are You Passively Exposed To Smoke? No Information not available 05/06/2022 What Types Of Sporting Activities Do You Participate In? None Information not available 11/18/2015 Do You Use Sunscreen Routinely? Yes Information not available 11/01/2014 How Many Years Have You Smoked Tobacco? 10 Information not available 05/06/2022 Sex: Male Functional Status Question Answer Note LastModified by Organizat ion Details LastModified Time Do you or have you ever used any other forms of tobacco or nicotine? No Information not available 08/21/2024 What is your level of alcohol consumption? Moderate 3 to 4 drinks a week Information not available 11/18/2015 Do you or have you ever used smokeless tobacco? Former smokeless tobacco user previously chewed tobacco Information not available 05/06/2022 Are you currently employed? 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 Never used electronic cigarettes Information not available 02/05/2020 What is your exercise level? Moderate Walking [...] avail able 11/18/2015 14:18:05 Maternal Grandfather Malignant neoplasm of prostate [email or web address] Not available 05/06 11:39:07 Notes:No family hx colon can cer, no CAD/stroke, no DM Medical History No medical history recorded. Past Encounters Encounter ID Performer Location Encounter Start Date Encounter Closed Date Diagnosis/Indication Diagnosis SNOMED-CT Code Diagnosis ICD10 Code Diagnosis Note [id number] ALLYSON Tran, [facility], OFFICE [address] [facility] [place] [address] 01/22/2009 14:08:11 01/25/2009 15:27:33 [id number] [facility] - [facility] [address] [facility] [place] [address] 02/15/2009 06:48:08 02/15/2009 07:14:46 [id number] ALLYSON Tran, [facility], OFFICE [address] [place] [address] 12/16/2009 07:50:09 12/18/2009 15:32:24 [id number] ALLYSON Tran, [facility], OFFICE [address] [facility] [place] [address] 01/20/2010 08:52:32 01/22/2010 10:29:19 [id number] ALLYSON Tran, [facility], OFFICE [address] [place] [address] [place] [address] 02/21/2010 08:52:58 02/24/2010 15:46:10 [id number] Heidi Frausto NP FP, [facility], OFFICE [address] [facility] [place] [address] 08/25/2010 07:47:26 08/28/2010 15:32:30 [id number] Shanna New NP FP, [facility], OFFICE [address] [facility] [place] [address] 12/22/2010 11:56:54 12/25/2010 14:12:19 [id number] ALLYSON Tran, [facility], OFFICE [address] [place] [address] [place] [address] 02/06/2011 08:02:50 02/10/2011 15:46:10 [id number] Car Fierro, JESSICA Physical Therapy, [address] [address] 02/16/2011 16:16:58 02/18/2011 10:18:40 [id number] Car Fierro, DPT Physical Therapy, [facility] [address] [place] [address] 02/23/2011 16:17:35 02/24/2011 08:34:22 [id number] Car Fierro, DPT Physical Therapy, [facility] [address] [place] [address] 03/04/2011 16:18:49 03/05/2011 07:55:59 [id number] Heidi Frausto NP [facility], [facility] [facility], OFFICE [address] [place] [address] 04/10/2011 07:49:48 04/15/2011 12:51:15 [id number] Heidi Frausto NP , [facility], OFFICE [address] [place] [address] 07/31/2011 09:36:10 07/31/2011 10:06:39 [id number] Heidi Frausto NP , [facility], OFFICE [address] [place] [address] 10/09/2011 07:47:58 10/09/2011 08:43:33 [id number] Meri Bond MD , [facility], OFFICE [address] [place] [address] 04/08/2012 07:57:19 04/08/2012 08:55:29 [id number] MD LUCY Rehman, [facility], OFFICE [address] [place] [address] 10/14/2012 08:45:44 10/14/2012 09:35:30 [id number] Heidi Frausto NP , [facility], OFFICE [address] [place] [address] 04/14/2013 08:03:12 04/14/2013 09:01:35 [id number] Mary Beth Bocanegra M.D. , [facility], OFFICE [address] [place] [address] 10/20/2013 08:22:50 10/20/2013 09:12:53 [id number] Mary Beth Bocanegra M.D. , [facility], OFFICE [address] [facility] [place] [address] 10/31/2014 14:22:17 10/31/2014 15:25:30 [id number] Mary Beth AYALA, [facility], OFFICE [address] [facility] [place] [address] 01/08/2015 09:00:01 01/08/2015 09:38:06 [id number] Mary Beth AYALA, [facility], OFFICE [address] [facility] [place] [address] 03/11/2015 08:28:24 03/11/2015 09:12:11 [id number] Nedra AYALA [facility], OFFICE [address] [facility] [place] [address] 11/18/2015 13:46:42 11/18/2015 14:51:50 [id number] Lenin Alberto MD [facility], [address] [address] 01/10/2016 07:01:12 01/10/2016 12:52:55 [id number] Nedra AYALA [facility], OFFICE [address] [facility] [place] [address] 05/13/2016 08:06:05 05/13/2016 08:55:23 [id number] Nedra AYALA [facility], OFFICE [address] [facility] [place] [address] 11/24/2016 08:13:42 11/24/2016 09:22:22 [id number] Nedra AYALA [facility], OFFICE [address] [facility] [place] [address] 05/24/2017 07:53:29 05/24/2017 08:26:08 [id number] Nedra AYALA [facility], OFFICE [address] [facility] [place] [address] 12/20/2017 08:21:50 12/20/2017 09:14:36 [id number] ALLYSON Chaudhary, [facility], OFFICE [address] [facility] [place] [address] 03/04/2018 07:34:17 03/04/2018 07:56:04 [id number] Nedra AYALA, [facility], OFFICE [address] [facility] [place] [address] 06/13/2018 07:49:50 06/13/2018 08:23:30 [id number] Nedra AYALA, [facility], OFFICE [address] [facility] [place] [address] 01/09/2019 10:48:23 01/09/2019 11:21:22 [id number] MD LUCY Anne, [facility], OFFICE [address] [facility] [place] [address] 03/02/2019 07:50:45 03/03/2019 09:18:33 [id number] Nedra AYALA, [facility], OFFICE [address] [facility] [place] [address] 06/06/2019 14:59:06 06/06/2019 15:22:27 [id number] Nedra AYALA, [facility], OFFICE [address] [facility] [place] [address] 06/13/2019 11:16:00 06/13/2019 12:09:45 [id number] Nedra AYALA, [facility], OFFICE [address] [facility] [place] [address] 08/14/2019 07:55:24 08/14/2019 08:36:44 [id number] Nedra AYALA, [facility], OFFICE [address] [facility] [place] [address] 02/05/2020 07:50:54 02/05/2020 08:50:11 [id number] Nedra AYALA, [facility], OFFICE [address] [facility] [place] [address] 08/19/2020 10:08:15 08/21/2020 17:40:05 [id number] Lenin Alberto MD [facility], [address] [address] 01/27/2021 07:19:10 01/27/2021 12:19:13 [id number] Nedra AYALA, [facility], OFFICE [address] [facility] [place] [address] 03/03/2021 08:28:32 03/04/2021 13:46:21 [id number] Nedra AYALA, [facility], OFFICE [address] [facility] [place] [address] 09/04/2021 07:44:10 09/08/2021 10:47:26 [id number] Kacey Nice, PT Physical Therapy, [facility] [address] [facility] [place] [address] 10/03/2021 07:51:03 10/06/2021 07:45:49 [id number] Kacey Nice, PT Physical Therapy, [facility] [address] [facility] [place] [address] 10/06/2021 07:27:51 10/06/2021 08:29:10 [id number] Kacey Nice, PT Physical Therapy, [facility] [address] [facility] [place] [address] 10/10/2021 08:24:41 10/10/2021 09:15:11 [id number] Kacey Nice, PT Physical Therapy, [facility] [address] [facility] [place] [address] 10/13/2021 08:21:58 10/13/2021 09:15:09 [id number] Kacey Nice, PT Physical Therapy, [facility] [address] [facility] [place] [address] 10/20/2021 16:22:46 10/21/2021 13:12:09 [id number] Nedra AYALA, [facility], OFFICE [address] [facility] [place] [address] 12/01/2021 11:57:30 12/08/2021 09:36:40 [id number] Nedra AYALA, [facility], OFFICE [address] [facility] [place] [address] 01/26/2022 10:03:43 02/03/2022 12:47:02 [id number] Nedra AYALA, [facility], OFFICE [address] [facility] [place] [address] 05/06/2022 10:47:52 05/06/2022 11:51:50 [id number] Nedra Carlson FP, [facility], OFFICE [address] [facility] on [facility] [place] [address] 11/16/2022 07:59:48 11/16/2022 08:47:23 [id number] Meri Bond MD FP, [facility], OFFICE [address] [place] [address] on [facility] [place] [address] 08/19/2023 14:44:06 08/19/2023 16:07:22 [id number] Meri Bond MD FP, [facility], OFFICE [address] [facility] on [facility] [place] [address] 08/20/2023 12:36:43 08/21/2023 18:56:04 [id number] Meri Bond MD FP, [facility], OFFICE [address] [place] [address], [place] [address] 01/03/2024 08:04:56 01/04/2024 10:50:15 [id number] Lenin Alberto MD Endoscopy , [address] [address] 06/05/2024 07:17:44 06/05/2024 10:18:22 [id number] Meri Bond MD FP, [facility], OFFICE [address] [place] [address], [place] [address] 08/21/2024 13:50:32 08/21/2024 14:54:05 [id number] Lenin Alberto MD Endoscopy , [address] [address] 12/12/2024 06:38:43 12/12/2024 12:00:45 [id number] Meri Bond MD FP, [facility], OFFICE [address] [place] [address] 02/20/2025 08:47:32 02/20/2025 11:51:59 Health Concerns Section Related Observation LastModified by Organization Detai ls LastModified Time None Recorded Concern Status LastModified by Organization Details LastModified Time None Recorded Advance Directives Directive None Recorded Payers Encounter Date Sequence Insurance Name Policy Number Policy Joyner Covered Member ID Joyner Member ID Guarantor Name 08/19/2023 2 [place] Selene Ortiz [id number] Jairo Ortiz 08/19/2023 1 [place] Jairo Ortiz [id number] Jairo Ortiz 08/20/2023 2 [place] Selene Ortiz [id number] Jairo Ortiz 08/20/2023 1 [place] Jairo Vargas Ortiz [id number] Jairo Ortiz 01/03/2024 2 [place] Selene Ortiz [id number] Jairo Ortiz 01/03/2024 1 [place] [place] Jairo Ortiz [id number] Jairo Ortiz 08/21/2024 2 [place] Selene Ortiz [id number] Jairo Ortiz 08/21/2024 1 [place] Jairo Ortiz [id number] 2 Jairo Ortiz 02/20/2025 2 [place] Selene Ortiz [id number] Jairo Ortiz 02/20/2025 1 [place] Jairo Ortiz [id number] 2 [facility] Ortiz
== END 2025-04-20 10:24 | disposition home or self-care (01) ==
LOC: HO.HUSH 09:09
PROVIDERS: PCP Family Medicine; Visit Provider Urology
DX: R39.9 Unspecified symptoms and signs involving the genitourinary system (principal); N30.10 Interstitial cystitis (chronic) without hematuria
CPT/HCPCS: 99213; G2211

== ENCOUNTER → 2025-04-20 09:09 | Outpatient (BNVA) | payer MEDICARE, BC, OTHER, SELFPAY | PROVIDERS: PCP Family Medicine; Visit Provider Urology ==

== ENCOUNTER 2025-10-19 12:14 | Outpatient (AMB) | payer MEDICARE, OTHER, BC, SELFPAY ==
--- NOTE | 2025-10-19 12:15 | MHC.OFFVIS ---
Intake Visit Reasons: 6m follow up Intake Note: Patient Is Present for Follow up(Chronic IC) Urology Med: Amitriptyline, Gabapentin, Naprosyn Antibiotic Allergy: None Blood Thinner: None Reconstructive Dentist Required: No Allergies No Known Allergies Allergy (Verified 10/19/25 12:15) HPI Comments Details: Jairo is a pleasant male. He is a patient of Dr. Downs. He is seen for the following urologic conditions - lower urinary tract symptoms - subclinical interstitial cystitis Telemedicine Evaluation 15 min Consultation [employer] Vincent Video Prior cystoscopy Bladder has glomerulation consistent with subclinical interstitial cystitis Discussed diet triggers - does drink coffee in the morning Had failed on anticholinergic secondary to constipation. Has failed 2 medications - Toviaz and oxybutynin and Gemtesa Discussed possibility of Botox He is interested We will discuss at next visit Spends in [place] Interstitial cystitis Subclinical picture Did respond to overnight triple therapy with flare Lower urinary tract symptoms Primary issue is urinary urgency and frequency Nocturia x4 with disrupted sleep Previously been treated with oxybutynin but cause constipation and prior history of hemorrhoids Trial of Toviaz with constipation Previous procedure includes Rezum 12/21 [facility] Medical History Acquired trigger finger Atopic dermatitis Benign prostate hyperplasia Gastroesophageal reflux Essential hypertension Mixed hyperlipidemia Hypothyroidism Multiple benign melanocytic nevi Adenomatous colon polyp Onychomycosis Review of Systems Const All systems reviewed & are unremarkable except as noted in HPI and below Reports no additional complaints Resp Reports no additional complaints GI Reports no additional complaints Reports as per HPI Musc Reports no additional complaints Physical Exam Telemedicine evaluation Appropriate responses Regular breathing rate and rhythm HEENT Head: Yes normal to inspection Ears: hearing grossly normal bilaterally Eyes General: appearance normal, both eyes and all related structures Neck Neck: Yes normal visual inspection Chest Chest palpation & inspection: normal inspection of the chest Resp Effort & Inspection: normal respiratory effort and able to speak in complete sentences Telehealth Telehealth Telehealth Platform: [employer] Location of provider rendering services: practice address Location of patient: address on file Patient Identification confirmed using: Name, : Yes Telehealth method: video Patient verbally consented to treatment: Yes Patient verbally consented to billing insurance company: Yes Patient informed of any privacy concerns related to visit: Yes Minutes spent on Phone/Video with Pt.: 15 Assessment & Plan Assessment & Plan (1) Chronic interstitial cystitis: Code(s): N30.10 - Interstitial cystitis (chronic) without hematuria Category: Medical (2) Overactive bladder: Code(s): N32.81 - Overactive bladder Category: Medical Plan Six-month follow-up Medications: Changed From naproxen (Naprosyn) 500 mg PO Q12H 30 days 60 tabs 0RF pain N32.81 - Overactive bladder To naproxen (Naprosyn) 500 mg PO BEDTIME 90 tabs 1RF pain 90 days N32.81 - Overactive bladder Patient Instructions: This note is constructed using voice recognition software. While every effort has been made to ensure accuracy consulting practice director errors may have been included. Imaging studies, laboratory and physical exam results were discussed and reviewed in detail. No major barriers to patient understanding were identified. An opportunity to ask questions regarding the treatment plan was provided. All questions were answered. The patient expressed understanding and agreement with the above treatment plan. The patient is aware they should contact our office by phone for worsening of their current condition or the appearance of new urologic symptoms. Compliance is encouraged with any medications and followup testing that is ordered. It is a privilege to participate in the urologic care of your patient. If you have any questions or concerns regarding treatment for the above conditions, or other urologic issues, please do not hesitate to contact me. The office telephone contact is [phone]. Sincerely, Dr Igor García MD, [facility] - Urology Compassionate Specialist Care for the Genitourinary System Coding Level of Care Code Tele Est Pt Level 3 (57294) Diagnoses Chronic interstitial cystitis N30.10 Overactive bladder N32.81
--- OUTSIDE RECORDS SUMMARY | 2025-10-19 12:45 | XMS_ITS | Encounter Summary ---
Author Organization [facility] Address [address] [facility] [address] [place] [address] Phone Care Team Providers Care Insulation Technician Name Role Phone Miya Carlson MD Primary Care Provider [phone] Meri Abdi MD Primary Care Prov ider Encounter Details Date Type Department Care Team (Latest Contact Info) Description 01/20/2021 Transcribe Orders Virtual Department [address] [place] [address] Lenin Alberto MD [address] [place] [phone] [email or web address] Pre-operative laboratory examination (Primary Dx) Social History Tobacco Use Types Packs/Day Years Used Date Smoking Tobacco: Never Smokeless Tobacco: Former Sex and Gender Information Value Date Recorded Sex Assigned at Male 06/08/2024 7:36 PM EDT Legal Sex Male 9:56 PM EDT Gender Identity Male 06/08/2024 7:36 PM EDT Sexual Orientation Straight 06/08/2024 7: 36 PM EDT documented as of this encounter Plan of Treatment Not on file documented as of this encounter Results * COVID-19 PCR Order (01/24/2021 7:44 AM EST) COVID-19 Comment [id number] [facility] COVID Testing Status Sent to [facility] 01/24/2021 7:44 AM EST 01/24/2021 11:25 AM EST us Lenin Alberto MD LAB GENERAL ORDERABLES Fin al Result [facility] [address] [place] [address] documented in this encounter Visit Diagnoses Diagnosis Pre-operative laboratory examination- Primary Pre-procedural laboratory examination documented in this encounter Additional Health Concerns Infection Onset Date Last Indicated Resolved Time CoV-Exposed Comment:Recent close contact documented in the Travel/Symptom Screening Form Neg covid 10/30/2022 10/30/2022 11/06/2022 11:23 AM EST documented as of this encounter Care Teams Insulation Technician Relationship Specialty Start Date End Date Miya Carlson MD [address] [place] [address] [email or web address] PCP - General Family Medicine 11/26/17 06/07/24 Meri Abdi MD [address] [place] [address] [email or web address] PCP - General Family Medicine 06/08/24 documented as of this encounter Additional Source Comments The information contained in this document represents components of the legal health record. It is not the complete legal health record.[facility]
--- OUTSIDE RECORDS SUMMARY | 2025-10-19 12:45 | XMS_ITS | Encounter Summary ---
Author Organization [facility] Address [address] [place] [address] [place] [address] Phone Care Team Providers Care Towel Sewer Name Role Phone Miya Carlson MD Primary Care Provider [phone] Meri Abdi MD Primary Care Prov ider Encounter Details Date Type Department Care Team (Late st Contact Info) Description 11/06/2022 Procedure Pass OR Admitting Dept - Virtual Department [address] [place] [id number] Social History Tobacco Use Types Packs/Day Years Used Date Smoking Tobacco: Never Smokeless Tobacco: Former Chew Alcohol Use Standard Drinks/Week Comments Yes 6 (1 standard drink = 0.6 oz pur e alcohol) Sex and Gender Information Value Date Recorded Sex Assigned at Male 06/08/2024 7:36 PM EDT Legal Sex Male 9:56 PM EDT Gender Identity Male 06/08/2024 7:36 PM EDT Sexual Orientation Straight 06/08/2024 7: 36 PM EDT documented as of this encounter Plan of Treatment Not on file documented as of this encounter Visit Diagnoses Not on filedocumented in this encounter Additional Health Concerns Infection Onset Date Last Indicated Resolved Time CoV-Exposed Comment:Recent close contact documented in the Travel/Symptom Screening Form Neg covid 10/30/2022 10/30/2022 11/06/2022 11:23 AM EST documented as of this encounter Care Teams Towel Sewer Relationship Specialty Start Date End Date Miya Carlson MD [address] [place] [phone] [email or web address] PCP - General Family Medicine 11/26/17 06/07/24 Meri Abdi MD [address] [place] [address] PCP - General Family Medicine 06/08/24 documented as of this encounter Additional Source Comments The information contained in this document represents components of the legal health record. It is not the complete legal health record.[facility]
--- OUTSIDE RECORDS SUMMARY | 2025-10-19 12:45 | XMS_ITS | Clinical Summary ---
Author Organization [facility] Address [address] [address] Phone Care Team Providers Care Ammunition Assembly Laborer Name Role Phone Meri Abdi MD Primary Care Prov ider Allergies No known active allergies Medications atorvastatin (LIPITOR) 80 MG tablet Take 80 mg by mouth daily. 3 7 Active levothyroxine (SYNTHROID, LEVOTHROID) 200 MCG tablet Take 225 mcg by mouth daily. 3 7 Active lisinopril (PRINIVIL,ZESTR IL) 40 MG tablet 7 Active raNITIdine (ZANTAC) 150 MG tablet Take 150 mg by mouth 2 (two) times a day. Active traMADoL (ULTRAM) 50 mg tablet Take 1 tablet (50 mg total) by mouth every 6 (six) hours as needed for pain (specific location in comments). 20 tablet 2 Active Additional Information Patient not taking.Reported on 11/30/2022 dilTIAZem (CARDIZEM CD) 120 MG 24 hr capsule Take by mouth daily. 2 Active Hospital, Clinic, or Other Facility Administered Medication Ordered Dose Route Frequency Start Date End Date Status triamcinolone acetonide (KENALOG-40) 40 mg/mL injection 20 mg 20 mg See Adm Inst See admin instructions 09/04/2020 Active lidocaine (XYLOCAINE) 1% injection 0.5 mL 0.5 mL See Adm Inst See admin instructions 09/04/2020 Active triamcinolone acetonide (KENALOG-40) 40 mg/mL injection 20 mg 20 mg See Adm Inst See admin instructions 12/01/2021 Active lidocaine (XYLOCAINE) 1% injection 0.5 mL 0.5 mL See Adm Inst See admin instructions 12/01/2021 Active Active Problems No known active problems Immunizations Immunization Administration Dates Next Due INFLUENZA, SPLIT VIRUS, TRIVALENT PF 01/22/2009 INFLUENZA, SPLIT VIRUS, TRIV ALENT W/ PRESERVATIVE IM 10/09/2011,08/25/2010,12/16/2009 Influenza High-Dose Quadriva lent Preservative Free IM 09/04/2021,10/04/2020 Influenza Quadrivalent Adjuv anted Preservative Free IM 10/21/2022 Influenza Quadrivalent MDCK Preservative Free IM 08/17/2019,11/02/2018 Influenza Quadrivalent Prese rvative Free IM 09/25/2017,11/24/2016,11/18/2015,10/31,10/20/2013 Influenza trivalent preserva tive free intradermal 10/14/2012 Novel [id number], Injectable 12/16/2009 Pneumococcal polysaccharide PPSV23 02/05/2020 Td (adult),2 Lf Tetanus Toxo id, PF, Adsorbed 06/06/2019 Tdap 12/16/2009 Zoster live 11/16/2014 Zoster recombinant 05/22/2021,10/04/2020, 019 Social History Tobacco Use Types Packs/Day Years Used Date Smoking Tobacco: Never Smokeless Tobacco: Former Chew Tobacco Cessation:Counseling Given: Not Answered Alcohol Use Standard Drinks/Week Comments Yes 6 (1 standard drink = 0.6 oz pur e alcohol) Education Answer Date Recorded Are you interested in more education? Not on rosalinda e 03/26/2023 Are you concerned about learning? Not on file 03/26/2023 No 03/26/2023 No 03/26/2023 Digital Access Answer Date Recorded No 04/26/2023 No 04/26/2023 No 04/26/2023 Reliable internet access at home? Not on file 04/26/2023 Device with a working camera? Not on file Intimate Partner Violence Answer Date R ecorded Are you denied basic needs s uch as food, clothing, or medical care? No 06/08/2024 In the past 12 months have y ou been in a relationship with a person who hurts, threatens, or tries to control you? No 06/08/2024 Are you denied basic needs s uch as food, clothing, or medical care? No 06/08/2024 In the past 12 months have y ou been in a relationship with a person who hurts, threatens, or tries to control you? No 06/08/2024 Sex and Gender Information Value Date Recorded Sex Assigned at Male 06/08/2024 7:36 PM EDT Legal Sex Male 9:56 PM EDT Gender Identity Male 06/08/2024 7:36 PM EDT Sexual Orientation Straight 06/08/2024 7: 36 PM EDT Last Filed Vital Signs Vital Sign Reading Time Taken Comments Blood Pressure 106/64 06/08/2024 10:45 PM EDT Pulse 57 06/08/2024 10:45 PM EDT Temperature 35.9 C (96.6 F) 06/08/2024 10:45 PM EDT Respiratory Rate 17 06/08/2024 10:45 PM EDT Oxygen Saturation 94% 06/08/2024 10:45 PM EDT Inhaled Oxygen Concentration - - Weight 99.8 kg (220 lb) 06/08/2024 7:34 PM EDT Height 189.2 cm (6' 2.5 ) 06/08/2024 7:34 PM EDT Body Mass Index 27.87 06/08/2024 7:34 PM EDT Plan of Treatment Health Maintenance Due Date Last Done Comments CREATININE LEVEL 1954 LIPID PANEL 1954 POTASSIUM LEVEL 1954 TSH LEVEL 1954 DEPRESSION SCREENING 1966 HEPATITIS C SCREENING 1972 COLOGUARD 1999 FIT TEST 1999 FOBT 1999 SIGMOIDOSCOPY 1999 VIRTUAL COLONOSCOPY 1999 PNEUMOCOCCAL VACCINES (50+ years) (2 of 2 - PCV) 02/04/2021 02/05/2020 INFLUENZA VACCINE (#1) 2025 2, 09/04/2021, 10/04/2020, Additional history exists COVID-19 VACCINE ( season) 2025 10/21/2022, 11/04/2021, 03/11/2021, Additional history exists COLONOSCOPY 06/05/2029 02/27/2025 COLORECTAL CANCER SCREENING 06/05/2029 Adult Td,Tdap Booster 06/06/2029 06/06/2019, 010 RSV VACCINE (1 - 1-dose 75+ series) 2029 ZOSTER VACCINES Completed 05/22/2021, 11/0 04/2020, 11/11/2019, Additional history exists SMOKING STATUS SCREENING (Once After 26 Yrs) Completed 11/30/2022 HEPATITIS A VACCINES Aged Out No long er eligible based on patient's age to complete this topic HIB VACCINES Aged Out No longer eligi ble based on patient's age to complete this topic MENINGOCOCCAL VACCINES (ACWY) Aged Out No longer eligible based on patient's age to complete this topic MENINGOCOCCAL VACCINES (B) Aged Out N o longer eligible based on patient's age to complete this topic Medical Devices Not on file Procedures Procedure Name Priority Date/Time Associated Diagnosis Comments COLONOSCOPY FOR RESULT ENTRY ONLY Routine 02/27/2025 from Last 3 Months or Most Recently Relevant to Health Maintenance Results * COLONOSCOPY FOR RESULT ENTRY ONLY (02/27/2025) Colonoscopy External us Historical Provider MD HEALTH MAINTENANCE Final Result from Last 3 Months or Most Recently Relevant to Health Maintenance Insurance MEDICARE PART A & B FOR LIFE MEDICARE [place] [address] [place] [address] MEDICARE PART A & B FOR LIFE MEDICARE [place] [place] [address] FEDERAL MEDICARE PART A & B [facility] FEDERAL MEDICARE PART A & [place] [address] [place] [address] MEDICARE PART A & B FOR LIFE MEDICARE SUPPLEMENT [facility] FEDERAL MEDICARE PART A & B [facility] FEDERAL MEDICARE PART A & B [facility] MEDICARE SUPPLEMENT [facility] MEDICARE PART A & B FOR LIFE MEDICARE SUPPLEMENT [facility] MEDICARE PART A & B FOR LIFE MEDICARE SUPPLEMENT Care Teams Ammunition Assembly Laborer Relationship Specialty Start Date End Date Meri Abdi MD [address] [place] [address] [email or web address] PCP - General Family Medicine 06/08/24 Additional Source Comments The information contained in this document represents components of the legal health record. It is not the complete legal health record.[facility]
== END 2025-10-19 12:41 | disposition home or self-care (01) ==
LOC: HO.HUSH 12:14
PROVIDERS: PCP Family Medicine; Visit Provider Urology
DX: N30.10 Interstitial cystitis (chronic) without hematuria (principal); N32.81 Overactive bladder
CPT/HCPCS: 99213